=== PATIENT | female | born 1960 | race Caucasian/White ===

== ENCOUNTER 2023-09-14 16:39 | Emergency (ER) | payer OTHER, SELFPAY ==
[2023-09-14 18:51] VITALS: BP 160/94
--- NOTE | 2023-09-14 20:04 | ED.MUSCINJ ---
HPI-Injury
General
Source: patient
Exam Limitations: none
Time Seen by Provider: 09/14/23 16:51
Nursing documentation reviewed up to this point in time: agreed with
History of Present Illness-Injury
Is this injury a work related problem?: Yes
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
Initial Injury comments:
Patient states she lsot her footing and fell. Denies hitting her head. No LOC. Complains of pain to let lat foot, right shoulder. She was then accidentally hit by cart on lower back. Mild discomfort at site. Injuries occurred just [employer]
Past History
Past History
ED Past Medical History: HTN and Hypercholesterolemia
ED Past Surgical History: None
Social History
Tobacco: Non-smoker
Personal: Single
Living: with family
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
Review of Systems
Review of Systems
Allergies reviewed?: Yes
All Other Systems: ROS reviewed and negative except as documented in HPI and ROS
Constitutional: Reports no symptoms
EENT: Reports no symptoms
Respiratory: Reports no symptoms
Cardiac: Reports no symptoms
ABD/GI: Reports no symptoms
: Reports no symptoms
Musculoskeletal: Reports joint pain (Pain let lat foot, right shoulder, low back.)
Skin: Reports no symptoms
Neurological: Reports no symptoms
Psychiatric: Reports no symptoms
Musculoskeletal Injury Exam
Musculoskeletal Injury Exam
Left Lateral Foot:
Pain with Movement?: Moderate
Tender to palpation?: Moderate
Soft tissue swelling?: None
External deformity and angulation?: None
Joint effusion?: None
Contusion?: None
Hematoma-local bleeding into tissue?: None
Strain- Sprain- Tear (Connective tissue injury)?: Moderate
Crepitus with movement?: No
Joint instability?: No
Malalignment/deformity?: No
Range of motion: Full
Distal skin color and temperature: normal-warm & good color
Capillary Refill: normal
Normal distal neurovascular exam?: Yes
Peripheral Pulses: posterior tibial (left): 3+ and dorsalis pedis (left): 3+
Proximal tibia Left:
Pain with Movement?: Mild
Tender to palpation?: Moderate
Soft tissue swelling?: None
External deformity and angulation?: None
Joint effusion?: None
Contusion?: Mild
Hematoma-local bleeding into tissue?: None
Strain- Sprain- Tear (Connective tissue injury)?: Moderate
Crepitus with movement?: No
Joint instability?: No
Malalignment/deformity?: No
Range of motion: Full
Distal skin color and temperature: normal-warm & good color
Capillary Refill: normal
Normal distal neurovascular exam?: Yes
Lower Back:
Pain with Movement?: Mild
Tender to palpation?: Mild
Soft tissue swelling?: None
External deformity and angulation?: None
Joint effusion?: None
Contusion?: Mild
Hematoma-local bleeding into tissue?: None
Strain- Sprain- Tear (Connective tissue injury)?: None
Crepitus with movement?: No
Joint instability?: No
Malalignment/deformity?: No
Range of motion: Full
Distal skin color and temperature: normal-warm & good color
Capillary Refill: normal
Normal distal neurovascular exam?: Yes
Right Shoulder:
Pain with Movement?: Mild
Tender to palpation?: Mild
Soft tissue swelling?: None
External deformity and angulation?: None
Joint effusion?: None
Contusion?: Moderate
Hematoma-local bleeding into tissue?: None
Strain- Sprain- Tear (Connective tissue injury)?: None
Crepitus with movement?: No
Joint instability?: No
Malalignment/deformity?: No
Range of motion: Full
Distal skin color and temperature: normal-warm & good color
Capillary Refill: normal
Normal distal neurovascular exam?: Yes
Phy Exam
General Physical Exam
General Presentation: well appearing and no apparent distress
General age: appears stated age
General Skin: warm and dry
General Habitus: normal
General Mental: alert
Musculoskeletal Exam
Musculoskeletal Exam: full ROM, neuro vasc intact and other (Achilles intact, no tenderness base of 5th)
Skin Exam
Skin Exam: normal color, warm/dry and no rash
Psychiatric Exam
Psychiatric Exam: normal mood/affect
Injury Course
Orders/Labs/Results
Orders:
Orders
09/14/23 17:06
Foot, Left 3 View [CR Foot - Left Min 3 Views] Urgent
Comment:
Reason For Exam: fall
Tib/Fib, Left 2 View [CR Leg Tibia/fibula Left 2 Vw] Urgent
Comment:
Reason For Exam: fall
09/14/23 18:36
Ortho Boot Left- Treatment ONCE
Short or tall?: Short
*Radiology
Radiology exam reviewed: radiology read reviewed
*Pulse Oximetry
Patient hypoxic: no
*Critical Care Note
Total Time (30-74mins, 75-104mins- exclusive of procedures): Not Applicable
ED Attending Note
-
Portions of this chart may have been created with voice recognition software.� Occasional wrong word or��sound alike� substitutions may have occurred due to the inherent limitations of voice recognition software.
Discharge Plan
Departure
Patient Disposition: Home (Routine Discharge)
Date of Disposition: 09/14/23
Time of Disposition: 18:37
Patient with high blood pressure during this ER visit?: No
Condition: Good
Covid-19: Not Applicable
Discharge Problem:
Foot sprain, Back contusion
Instructions: Ibuprofen, Foot Sprain (DC), Using Cold for Pain, Contusion
Prescriptions:
No Action
atorvastatin 10 MG tablet
10 mg PO DAILY
atenolol 50 MG tablet
50 mg PO BID
sumatriptan succinate 50 MG tablet
50 mg PO DAILY PRN (Reason: migraine)
naproxen 375 MG tablet
375 mg PO TID 0RF
hydrochlorothiazide 25 MG tablet
25 mg PO DAILY
Hold Instructions: will reassess as outpt
omeprazole 20 MG tablet,delayed release (DR/EC)
20 mg PO DAILY
acetaminophen 325 MG tablet
650 mg PO Q6HPRN PRN (Reason: mild pain/ fever>100.5F) 0RF
lorazepam 0.5 mg Tablet
0.5 mg PO BID PRN (Reason: anxiety )
cyclobenzaprine 5 mg Tablet
5 mg PO HS PRN (Reason: jaw tightness)
polyethylene glycol 3350 17 gram Powder In Packet
17 g PO DAILYPRN PRN (Reason: Constipation) Qty: 0 0RF
losartan 50 MG tablet
50 mg PO BID Qty: 1 0RF
Rx Instructions:
start tomorrow
Referrals:
[facility] [Outside] - Tomorrow
Lebron Mcgill DO [Family Provider] -
Interventions
Interventions:
*General Assessment Last Done: 09/14/23 18:51
ED- Fall Risk Assessment Last Done: 09/14/23 18:51
*Nursing Disposition Last Done: 09/14/23 18:51
Discharge Date and Time
Discharge Date/Time: 09/14/23 18:53
== END 2023-09-14 18:53 | disposition home or self-care (01) ==
LOC: EMR 16:39
PROVIDERS: EMERGENCY PHYSICIAN Emergency Medicine; FAMILY PHYSICIAN Family Medicine
DX: S20.229A Contusion of unspecified back wall of thorax, initial encounter (principal); S93.602A Unspecified sprain of left foot, initial encounter; W19.XXXA Unspecified fall, initial encounter
CPT/HCPCS: 99283; 73590; 73630

== ENCOUNTER 2024-03-19 00:21 | Emergency (ER) | payer MEDICARE, SELFPAY ==
[2024-03-19 00:32] VITALS: BP 170/81
--- NOTE | 2024-03-19 01:26 | ED.GENMED ---
History of Present Illness
General
Chief Complaint: Skin Problem
Source: patient
Time Seen by Provider: 03/19/24 00:52
History of Present Illness
History of Present Illness:
63-year-old female who suffered a sunburn to her upper body about 3 weeks ago. She developed 'bubbly blisters' which resolved and then her skin peeled. Shortly after, she noted severe itching of the area where the burn as which includes her chest
shoulders and upper back on the right side. She has tried Benadryl, and was prescribed Silvadene by her family doctor. She also used hydrocortisone spray, however symptoms are so persistent that it prompted her visit here specifically for the
itching. She denies throat tightness, lip swelling, dyspnea, chest pain, headache, or other complaints. Patient sees a skin doctor regularly and has an appointment in April.
Past History
Past History
ED Past Medical History: HTN, Hypercholesterolemia and Other
ED Past Surgical History: Orthopedic
Social History
Tobacco: Non-smoker
Alcohol: None
Drug: None
Personal: Single
Living: with family
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
Phy Exam
Physical Exam
Physical Exam:
GENERAL: Alert , in no apparent distress
EYE: pupils equal and reactive
NECK: Supple, no significant adenopathy.
ENT: o/p clr, mmm.
CARDIAC: Regular rate and rhythm .
LUNGS: Clear breath sounds bilaterally, no acute respiratory distress, no wheezes/rales/rhonchi
ABDOMEN: Soft, without focal tenderness, no r/g
NEUROLOGICAL: Alert and oriented, no focal neuro deficits
SKIN: Warm and dry, skin intact. There is a resolving sunburn noted across the upper chest and shoulders bilaterally, no open wounds, vesicles, ulcers, drainage, crepitus, fluctuance, or other abnormalities. Skin is generally very dry.
MUSCULOSKELETAL: No edema, well perfused.
PSYCH: Normal and appropriate interaction.
Course
Orders/Labs/Results
Orders:
Orders
03/19/24 01:26
Prednisone [Deltasone] 50 mg PO NOW STA
Vital Signs
Initial and Last Documented VS:
Initial Vital Signs
Temp Pulse Resp BP Pulse Ox
99 F 77 20 170/81 97
03/19/24 00:32 03/19/24 00:32 03/19/24 00:32 03/19/24 00:32 03/19/24 00:32
Last Documented Vital Signs
Temp Pulse Resp BP Pulse Ox
99 F 77 20 170/81 97
03/19/24 00:32 03/19/24 00:32 03/19/24 00:32 03/19/24 00:32 03/19/24 00:32
*Critical Care Note
Total Time (30-74mins, 75-104mins- exclusive of procedures): Not Applicable
Update Note
Update Note:
Patient presents to the Emergency Department with itching
Number and Complexity of Problems Addressed at the Encounter
� Chronic conditions affecting care:
� Acute Exacerbation and/or Progression of Chronic Illness:
� Differential Diagnosis includes: But not limited to post sunburn reaction, allergic reaction, etc.
Amount and/or Complexity of Data to be Reviewed and Analyzed
� I performed an independent evaluation of and my interpretation is:
EKG:
CT:
Xrays:
Laboratory Studies:
Other:
� Review of other/old records reveals:
� Clinical information was obtained by an independent historian:
� Prescriptions/Medications Considered but not given:
� Further testing considered but not performed:
Risk of Complications and/or Morbidity or Mortality of Patient Management
� Social determinants of health affecting care:
� Discussion with other providers (PCP, Hospitalists, Consultants, etc):
� Escalation of care including admission/observation vs risk of discharge considered: Long discussion with patient, encouraged Claritin every morning, prompt Derm follow-up, and I will prescribe oral steroids as well as Atarax
for her symptoms.
ED Attending Note
-
Portions of this chart may have been created with voice recognition software.� Occasional wrong word or��sound alike� substitutions may have occurred due to the inherent limitations of voice recognition software.
Discharge Plan
Departure
Patient Disposition: Home (Routine Discharge)
Date of Disposition: 03/19/24
Time of Disposition: 01:29
Patient with high blood pressure during this ER visit?: Yes
Condition: Good
Discharge Problem:
pruritis
Instructions: Itchy skin, BLOOD PRESSURE
Prescriptions:
New
prednisone 10 mg tablet
10 mg PO DIRECTED Qty: 31 0RF
Rx Instructions:
50 mg qdX2d, then 40mg qdX3d, then 20 mg qdX3d, then 10 mg qdX3d then d/c
hydroxyzine HCl 25 mg tablet
25 mg PO Q8H PRN (Reason: itching) Qty: 16 0RF
No Action
atorvastatin 10 MG tablet
10 mg PO DAILY
atenolol 50 MG tablet
50 mg PO BID
sumatriptan succinate 50 MG tablet
50 mg PO DAILY PRN (Reason: migraine)
naproxen 375 MG tablet
375 mg PO TID 0RF
hydrochlorothiazide 25 MG tablet
25 mg PO DAILY
omeprazole 20 MG tablet,delayed release (DR/EC)
20 mg PO DAILY
acetaminophen 325 MG tablet
650 mg PO Q6HPRN PRN (Reason: mild pain/ fever>100.5F) 0RF
lorazepam 0.5 mg Tablet
0.5 mg PO BID PRN (Reason: anxiety )
cyclobenzaprine 5 mg Tablet
5 mg PO HS PRN (Reason: jaw tightness)
polyethylene glycol 3350 17 gram Powder In Packet
17 g PO DAILYPRN PRN (Reason: Constipation) Qty: 0 0RF
losartan 50 MG tablet
50 mg PO BID Qty: 1 0RF
Rx Instructions:
start tomorrow
Referrals:
Nabila Luz PA [Non-Admitting Privileges] - Follow up in 2-3 days
Lebron Mcgill DO [Family Provider] -
Activity Restrictions/Additional Instructions:
IF YOU DEVELOP FEVER, DRAINAGE, INCREASING OR NEW ITCHING, THROAT TIGHTNESS, TONGUE SWELLING, CHEST PAIN, SHORTNESS OF BREATH, GET WORSE, DO NOT GET BETTER, OR OTHER WORRISOME SIGNS, PLEASE RETURN TO THE ER IMMEDIATELY.
Interventions
Interventions:
*Risk Screen - Suicide Last Done: 03/19/24 00:32
*General Assessment Last Done: 03/19/24 00:32
*Neglect/Abuse Screening Last Done: 03/19/24 00:32
ED- Fall Risk Assessment Last Done: 03/19/24 00:32
*ED COVID-19 Vaccine History Last Done: 03/19/24 00:32
Discharge Date and Time
Print Language: TAIWANESE
[2024-03-19] MEDS: DELTASONE 50 MG PO (01:48)
[2024-03-19 01:49] VITALS: BP 172/93
== END 2024-03-19 02:00 | disposition home or self-care (01) ==
LOC: EMR 00:21
PROVIDERS: EMERGENCY PHYSICIAN Emergency Medicine; FAMILY PHYSICIAN Family Medicine
DX: L29.9 Pruritus, unspecified (principal); I10 Essential (primary) hypertension; E78.00 Pure hypercholesterolemia, unspecified
CPT/HCPCS: 99282

== ENCOUNTER 2024-06-19 19:17 | Emergency (ER) | payer MEDICARE, SELFPAY ==
[2024-06-19 19:19] VITALS: BP 161/95
[2024-06-19 19:32] VITALS: BP 151/86
[2024-06-19 19:33] VITALS: BMI 29.7
--- NOTE | 2024-06-19 19:34 | EDRN ---
In February, pt started with dizziness any time she turned her head to the left. Pt says it stopped then was intermittent. Pt was laying on sofa today got up and bent over to turn off a small heater and she fell backwards hitting entertainment center.
Pt says she was dizzy which caused her to fall backwards. Pt crawled to sofa to get up. Pt laid there for 1 hour, pt tried to get up and held onto things to go to the bathroom. When pt got up from toilet, she lost her balance and fell back onto
the toilet. Pt held onto berry to get to the sofa. Pt went into kitchen later but fell again stating 'I grabbed myself before I hard landed.' Pt then called her son who came over. Pt slid down the stairs to open the door for him then crawled
back upstairs. Son then brought pt to ED. Pt has had a headache all week and says her bp was 176/110 earlier this week. Headache is starting to return now. No double vision, visual disturbance. Pt adds she has been forgetting things this past
week, walking into a room and forgetting why she did so. All day, pt has felt dizzy when she stands. Pt feels fine when she is supine but gets dizzy when she turns her head to the left. Dizziness stops when she straightens her head. Pt has had 'a
little' RUQ abd pain that is intermittent but is now more often there than not. Pt adds she thinks she takes too much aleve and that is causing the abd pain. Pt denies cp, sob, n/v, weakness.
[2024-06-19 20:00] VITALS: BP 124/69
--- NOTE | 2024-06-19 20:02 | ED.GENMED ---
History of Present Illness
General
Chief Complaint: Dizziness
Source: patient
Time Seen by Provider: 06/19/24 19:43
History of Present Illness
History of Present Illness:
This patient is a 63-year-old female who states that she was feeling perfectly well yesterday. When she woke up this morning, she noticed that when she turns her head to the side, particular to the left side, the whole room 'is spinning'. She has
had these episodes throughout the day today when she moves her head or stands up. The sense of spinning/vertigo is not constant, and specifically position related. She denies associated diplopia or change in vision, change in speech, change in
swallowing, vomiting, numbness, tingling, chest pain, dyspnea, neck pain. She does note slight nausea. She has a very mild headache that started on the way here. Patient states that these episodes of dizziness today have caused her to fall down
because she lost her balance. She denies hitting her head or loss of consciousness. Patient describes having similar episodes in February and was diagnosed with vertigo.
Past History
Past History
ED Past Medical History: HTN and Hypercholesterolemia
ED Past Surgical History: Orthopedic
Social History
Tobacco: Non-smoker
Alcohol: None
Drug: None
Personal: Single
Living: with family
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
Phy Exam
Physical Exam
Physical Exam:
GENERAL: Alert , in no apparent distress
EYE: pupils equal and reactive, no nystagmus, EOMI, no photophobia
NECK: Supple, no significant adenopathy.
ENT: o/p clr, mmm.
CARDIAC: Regular rate and rhythm .
LUNGS: Clear breath sounds bilaterally, no acute respiratory distress, no wheezes/rales/rhonchi
ABDOMEN: Soft, without focal tenderness, no r/g, no cvat
NEUROLOGICAL: Alert and oriented, no focal neuro deficits, [id number] normal, motor 5 out of 5, sensory intact, cranial nerves II through XII intact
SKIN: Warm and dry, skin intact.
MUSCULOSKELETAL: No edema, well perfused.
PSYCH: Normal and appropriate interaction.
Course
Orders/Labs/Results
Orders:
Orders
06/19/24 19:22
Electrocardiogram (*1) Urgent
Reason for Study: Vertigo / Dizzy
EKG- Treatment ONCE
06/19/24 20:01
CT Head W/o Iv Contrast Urgent
Comment:
Reason For Exam: DIZZY
Cardiac Monitoring- Treatment ONCE
Meclizine [Antivert] 25 mg PO NOW STA
06/19/24 20:26
Complete Blood Count/No Diff Urgent
Comprehensive Metabolic Panel Urgent
Abnormal Lab Results
06/19/24
20:26
Creatinine 1.2 H mg/dL
(0.6-1.0)
Glucose 111 H mg/dl
(70-99)
Alkaline Phosphatase 155 H U/L
(38-126)
06/19/24 20:26
06/19/24 20:26
Vital Signs
Initial and Last Documented VS:
Initial Vital Signs
Temp Pulse Resp BP Pulse Ox
98.3 F 84 18 161/95 97
06/19/24 19:19 06/19/24 19:19 06/19/24 19:19 06/19/24 19:19 06/19/24 19:19
Last Documented Vital Signs
Temp Pulse Resp BP Pulse Ox
98.3 F 73 15 136/84 99
06/19/24 19:19 06/19/24 21:00 06/19/24 21:00 06/19/24 21:00 06/19/24 19:33
*Critical Care Note
Total Time (30-74mins, 75-104mins- exclusive of procedures): Not Applicable
Update Note
Update Note:
Patient presents to the Emergency Department with ___dizziness
Number and Complexity of Problems Addressed at the Encounter
� Chronic conditions affecting care:
� Acute Exacerbation and/or Progression of Chronic Illness:
� Differential Diagnosis includes: Peripheral vertigo, central vertigo, vagal dizziness
Amount and/or Complexity of Data to be Reviewed and Analyzed
� I performed an independent evaluation of and my interpretation is:
EKG:read by me, nsr, lvh, no acute ischemia
CT:head ct read by bossman damon
Xrays:
Laboratory Studies:sl abnl cr but baseline (pt made aware), otherwise generally unremkarable
Other:
� Review of other/old records reveals:
� Clinical information was obtained by an independent historian:
� Prescriptions/Medications Considered but not given:
� Further testing considered but not performed:
Risk of Complications and/or Morbidity or Mortality of Patient Management
� Social determinants of health affecting care:
� Discussion with other providers (PCP, Hospitalists, Consultants, etc):925pm Pt feels much better s/p meds here. no new sxs, no 'red flags' to suggest central process. Sxs clearly reproduced with turning head, no nysagmus
noted. D/w pt import of f/u including re:Cr, reasons to rted, and f/u with vestib therapy. Pt walked to br with ease.
� Escalation of care including admission/observation vs risk of discharge considered:
ED Attending Note
-
Portions of this chart may have been created with voice recognition software.� Occasional wrong word or��sound alike� substitutions may have occurred due to the inherent limitations of voice recognition software.
Discharge Plan
Departure
Patient Disposition: Home (Routine Discharge)
Date of Disposition: 06/19/24
Time of Disposition: 21:26
Patient with high blood pressure during this ER visit?: Yes
Condition: Good
Discharge Problem:
Vertigo
Instructions: Vertigo (a Type of Dizziness) (DC), BLOOD PRESSURE
Prescriptions:
New
meclizine [Antivert] 25 mg tablet,chewable
25 mg PO Q8HPRN PRN (Reason: nausea or vertigo) Qty: 13 0RF
No Action
atenolol 50 MG tablet
50 mg PO BID
sumatriptan succinate 50 MG tablet
50 mg PO DAILY PRN (Reason: migraine)
omeprazole 20 MG tablet,delayed release (DR/EC)
20 mg PO DAILY
lorazepam 0.5 mg Tablet
0.5 mg PO BID PRN (Reason: anxiety )
polyethylene glycol 3350 17 gram Powder In Packet
17 g PO DAILYPRN PRN (Reason: Constipation) Qty: 0 0RF
losartan 50 MG tablet
50 mg PO BID Qty: 1 0RF
atorvastatin 20 mg Tablet
20 mg PO DAILY
amlodipine 2.5 mg Tablet
2.5 mg PO DAILY
hydrochlorothiazide 12.5 mg Tablet
12.5 mg PO DAILY
naproxen sodium [Aleve] 220 mg Capsule
440 mg PO BID
Referrals:
Lebron Mcgill DO [Family Provider] - Follow up in 2-3 days
Activity Restrictions/Additional Instructions:
PLEASE SEE YOUR FAMILY DOCTOR IN CLOSE FOLLOW UP. IF YOU DEVELOP DOUBLE VISION, FEVER, SEVERE HEADACHE, CHANGE IN SPEECH, DIFFICULTY WALKING, WORSENING/PERSISTENT DIZZINESS, WEAKNESS IN AN EXTREMITY, OR OTHER WORRISOME SIGNS, GO TO THE ER
IMMEDIATELy!
Interventions
Interventions:
*Risk Screen - Suicide Last Done: 06/19/24 19:19
*General Assessment Last Done: 06/19/24 19:19
*Neglect/Abuse Screening Last Done: 06/19/24 19:19
*ED COVID-19 Vaccine History Last Done: 06/19/24 19:33
*Nursing Disposition Last Done: 06/19/24 21:33
ED- Neurological Assessment Last Done: 06/19/24 19:43
ED- Cardiac Assessment Last Done: 06/19/24 19:50
ED Swallowing Screen Last Done: 06/19/24 20:15
Discharge Date and Time
Discharge Date/Time: 06/19/24 21:33
Print Language: [id number]
[2024-06-19] MEDS: ANTIVERT 25 MG PO (20:16)
[2024-06-19 20:35] LABS: Hematocrit 37.5 % (37.0-47.0); Hemoglobin 13.1 g/dL (12.0-16.0); Mean Corp Hgb Conc. 34.9 g/dL (33.0-37.0); Mean Corpuscular Hgb 29.4 pg (27.0-31.0); Mean Corpuscular Volume 84.3 fL (81.0-99.0); Mean Platelet Volume 9.9 fL (7.4-10.4); Platelet Count 383 10^3/uL (130-400); Red Blood Cell Count 4.45 10^6/uL (4.20-5.40); Red Cell Dist. Width 13.2 % (11.5-14.5); White Blood Cell Count 7.4 10^3/uL (4.8-10.8)
[2024-06-19 20:58] LABS: ALT (SGPT) 20 U/L (0-35); AST (SGOT) 26 U/L (14-36); Albumin 4.2 g/dl (3.5-5.0); Alkaline Phosphatase 155 U/L (38-126); Blood Urea Nitrogen 15 mg/dl (7-17); Carbon Dioxide 28 mmol/L (22-30); Chloride 100 mmol/L (98-107); Estimated Creatinine Clearance 49 ml/min; Glucose 111 mg/dl (70-99); Potassium 3.7 mmol/L (3.5-5.1); Sodium 139 mmol/L (135-145); Total Bilirubin 0.7 mg/dl (0.2-1.3); Total Protein 7.4 g/dl (6.3-8.2); eGFR 50.23
[2024-06-19 21:00] VITALS: BP 136/84
== END 2024-06-19 21:33 | disposition home or self-care (01) ==
LOC: EMR 19:17
PROVIDERS: EMERGENCY PHYSICIAN Emergency Medicine; FAMILY PHYSICIAN Family Medicine
DX: R42 Dizziness and giddiness (principal); R11.0 Nausea; R51.9 Headache, unspecified; R10.11 Right upper quadrant pain; W19.XXXA Unspecified fall, initial encounter; I10 Essential (primary) hypertension; E78.00 Pure hypercholesterolemia, unspecified; R29.6 Repeated falls
CPT/HCPCS: 99284; 70450; 80053; 85027; 93005

== ENCOUNTER 2024-06-24 19:45 | Emergency (ER) | payer MEDICARE, SELFPAY ==
[2024-06-24 19:49] VITALS: BP 160/94
[2024-06-24] MEDS: TORADOL 30 MG IV (20:27)
[2024-06-24 20:35] LABS: % Basophils 0.4 % (0-2); % Eosinophils 1.9 % (0-6); % Immature Granulocytes 0.3 % (0-0.5); % Lymphocytes 26.2 % (20.5-51.1); % Monocytes 6.1 % (1.7-9.3); % Neutrophils 65.1 % (42.2-75.2); Absolute Eosinophils 0.2 10^3/uL (0-0.7); Absolute Lymphocytes 2.6 10^3/uL (1.2-3.4); Absolute Monocytes 0.6 10^3/uL (0.1-0.6); Absolute Neutrophils 6.6 10^3/uL (1.4-6.5); Hematocrit 38.3 % (37.0-47.0); Hemoglobin 13.3 g/dL (12.0-16.0); Mean Corp Hgb Conc. 34.7 g/dL (33.0-37.0); Mean Corpuscular Hgb 29.8 pg (27.0-31.0); Mean Corpuscular Volume 85.9 fL (81.0-99.0); Nucleated Red Blood Cells % 0 %; Platelet Count 413 10^3/uL (130-400); Red Blood Cell Count 4.46 10^6/uL (4.20-5.40); White Blood Cell Count 10.1 10^3/uL (4.8-10.8)
--- NOTE | 2024-06-24 20:35 | ED.GENMED ---
Addendum entered and electronically signed by Ignacio Pritchett DO 06/24/24 23:08:
Update patient is better x-rays noted, formal report pending, symptoms only when she moves her head, unable to get ultrasound tonight she will follow-up with her PCP for that, also she already has number for physical therapy for vestibular therapy,
Original Note:
History of Present Illness
General
Chief Complaint: Fainting/Passed Out
Source: patient, records and previous radiology exam
Exam Limitations: none
Time Seen by Provider: 06/24/24 19:57
History of Present Illness
History of Present Illness:
63-year-old female history of vertigo diagnosed for 5 months ago, it has been intermittent worse with movements, better with rest, few episodes where she nearly passed out, recently fell onto a TV knocked it down seen in the ER had a CAT scan of her
head which is unremarkable, tonight she was in the shower felt off next thing he knows she was on the ground, shampooing her hair struck her jaw, she has pain in her left elbow left hip left knee and ankle, no chest pain or shortness of breath, she
has had surgery on her hand previously told that she has an inflammatory process not fibromyalgia, she lives alone does not drink or smoke, interested she told me her mother had similar episodes around this age had carotid blockage requiring surgery
Seen here few nights ago diagnosed with vertigo had a CAT scan of her head discharged on meclizine scheduled to see her PCP in a few days
Past History
Past History
ED Past Medical History: HTN and Hypercholesterolemia
ED Past Surgical History: Orthopedic
Social History
Tobacco: Non-smoker
Alcohol: None
Drug: None
Personal: Single
Living: with family
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
Family History
Family History: Other (Mother with syncope in her 60s)
Review of Systems
Review of Systems
All Other Systems: Not applicable
Constitutional: Denies fever or fatigue
EENT: Reports no symptoms
Respiratory: Reports no symptoms
Cardiac: Reports syncope; Denies chest pain
ABD/GI: Reports no symptoms
: Reports no symptoms
Musculoskeletal: Reports joint pain; Denies back pain
Neurological: Reports dizzy and numbness
Hematologic/Lymphatic: Reports no symptoms
Psychiatric: Reports no symptoms
Phy Exam
Physical Exam
Physical Exam:
Physical Exam
General: no apparent distress, not acutely ill
Neck: No posterior neck pain, mild tenderness to the angle of the mandible on the left, no tongue bite question bruit on the left carotid
Heart: s1/s2 regular rate and rhythm, no murmur. equal radial pulses.
Lungs: no acute respiratory distress. clear bilaterally
Abdomen: Soft not tender
Neuro: alert and oriented. no focal neurological deficits
Skin: no rash
Psychiatric: well kept. interactive and cooperative
Extremities: No pain with range of motion of the hips, minimal tenderness of the left knee and left ankle
Course
Orders/Labs/Results
Orders:
Orders
06/24/24 20:13
Electrocardiogram (*1) Urgent
Reason for Study: Other
Other Reason for Exam: trauma
Cardiac Monitoring- Treatment ONCE
EKG- Treatment ONCE
CR Cervical Spine 2 or 3 Vw Urgent
Comment:
Reason For Exam: fall
CR Jaw/mandible < 4 Views Urgent
Comment:
Reason For Exam: fall
06/24/24 20:14
CR Elbow - Left Min 2 View Urgent
Comment:
Reason For Exam: fall
Knee, Right 1 or 2 Views [CR Knee - Right 1 Or 2 Views] Urgent
Comment:
Reason For Exam: fall
Pelvis, 1 or 2 Views CR [CR Pelvis - 1 Or 2 Views ] Urgent
Comment:
Reason For Exam: fall
06/24/24 20:15
Ankle, left 2 view CR [CR Ankle - Left 2 Views] Urgent
Comment:
Reason For Exam: fall
Carotid US [US Cerebrovascular] Urgent
Comment:
Reason For Exam: dizzy fall ? bruit
06/24/24 20:25
Complete Blood Count/With Diff Urgent
Comprehensive Metabolic Panel Urgent
Ketorolac [Toradol] 30 mg IV NOW STA
Abnormal Lab Results
06/24/24
20:25
Plt Count 413 H 10^3/uL
(130-400)
Absolute Neuts (auto) 6.6 H 10^3/uL
(1.4-6.5)
06/24/24 20:25
Vital Signs
Initial and Last Documented VS:
Initial Vital Signs
Temp Pulse Resp BP Pulse Ox
98.1 F 85 16 160/94 98
06/24/24 19:49 06/24/24 19:49 06/24/24 19:49 06/24/24 19:49 06/24/24 19:49
Last Documented Vital Signs
Temp Pulse Resp BP Pulse Ox
98.1 F 85 16 160/94 98
06/24/24 19:49 06/24/24 19:49 06/24/24 19:49 06/24/24 19:49 06/24/24 19:49
MDM/Problems Addressed
Differential Diagnosis Includes:
Vasovagal arrhythmia electrolyte abnormality nonspecific dizziness,
MDM/Problems Addressed:
Syncope dizziness vertigo
*Radiology
Radiology exam reviewed: radiology read reviewed
*Pulse Oximetry
Patient hypoxic: no
*EKG
Interpreted by ED Provider?: Yes
Interpretation: normal
Comparison EKG: no comparison EKG present
Heart Rate: 78
Rate: normal
Rhythm: sinus
Ischemia: no ischemia
*Kitchen Manager Interpretation
Rate: normal
Interpretation: normal
Heart Rate: 78
Rhythm: sinus
*Critical Care Note
Total Time (30-74mins, 75-104mins- exclusive of procedures): Not Applicable
ED Attending Note
-
Portions of this chart may have been created with voice recognition software.� Occasional wrong word or��sound alike� substitutions may have occurred due to the inherent limitations of voice recognition software.
Discharge Plan
Departure
Prescriptions:
No Action
atenolol 50 MG tablet
50 mg PO BID
sumatriptan succinate 50 MG tablet
50 mg PO DAILY PRN (Reason: migraine)
omeprazole 20 MG tablet,delayed release (DR/EC)
20 mg PO DAILY
lorazepam 0.5 mg Tablet
0.5 mg PO BID PRN (Reason: anxiety )
polyethylene glycol 3350 17 gram Powder In Packet
17 g PO DAILYPRN PRN (Reason: Constipation) Qty: 0 0RF
losartan 50 MG tablet
50 mg PO BID Qty: 1 0RF
atorvastatin 20 mg Tablet
20 mg PO DAILY
amlodipine 2.5 mg Tablet
2.5 mg PO DAILY
hydrochlorothiazide 12.5 mg Tablet
12.5 mg PO DAILY
naproxen sodium [Aleve] 220 mg Capsule
440 mg PO BID
meclizine [Antivert] 25 mg tablet,chewable
25 mg PO Q8HPRN PRN (Reason: nausea or vertigo) Qty: 13 0RF
Referrals:
Lebron Mcgill DO [Family Provider] -
Interventions
Interventions:
*Risk Screen - Suicide Last Done: 06/24/24 19:47
*Neglect/Abuse Screening Last Done: 06/24/24 19:49
Discharge Date and Time
Print Language: SLOVAK
[2024-06-24 20:50] LABS: ALT (SGPT) 16 U/L (0-35); AST (SGOT) 22 U/L (14-36); Albumin 4.1 g/dl (3.5-5.0); Alkaline Phosphatase 145 U/L (38-126); Blood Urea Nitrogen 13 mg/dl (7-17); Calcium 10.3 mg/dl (8.4-10.2); Carbon Dioxide 29 mmol/L (22-30); Chloride 98 mmol/L (98-107); Glucose 102 mg/dl (70-99); Potassium 3.5 mmol/L (3.5-5.1); Sodium 140 mmol/L (135-145); Total Bilirubin 0.4 mg/dl (0.2-1.3); Total Protein 6.9 g/dl (6.3-8.2); eGFR 41.75
[2024-06-24 22:13] VITALS: BP 148/82
--- NOTE | 2024-06-24 23:05 | ED.GENMED ---
History of Present Illness
General
Chief Complaint: Fainting/Passed Out
Time Seen by Provider: 06/24/24 19:57
Past History
Past History
ED Past Medical History: HTN and Hypercholesterolemia
ED Past Surgical History: Orthopedic
Social History
Tobacco: Non-smoker
Alcohol: None
Drug: None
Personal: Single
Living: with family
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
Family History
Family History: Other (Mother with syncope in her 60s)
Course
Orders/Labs/Results
Orders:
Orders
06/24/24 20:13
Electrocardiogram (*1) Urgent
Reason for Study: Other
Other Reason for Exam: trauma
Cardiac Monitoring- Treatment ONCE
EKG- Treatment ONCE
CR Cervical Spine 2 or 3 Vw Urgent
Comment:
Reason For Exam: fall
CR Jaw/mandible < 4 Views Urgent
Comment:
Reason For Exam: fall
06/24/24 20:14
CR Elbow - Left Min 2 View Urgent
Comment:
Reason For Exam: fall
CR Knee - Left 4 Or More View* Urgent
Reason For Exam: fall
Pelvis, 1 or 2 Views CR [CR Pelvis - 1 Or 2 Views ] Urgent
Comment:
Reason For Exam: fall
06/24/24 20:15
Ankle, left 2 view CR [CR Ankle - Left 2 Views] Urgent
Comment:
Reason For Exam: fall
06/24/24 20:25
Complete Blood Count/With Diff Urgent
Comprehensive Metabolic Panel Urgent
Ketorolac [Toradol] 30 mg IV NOW STA
Abnormal Lab Results
06/24/24
20:25
Plt Count 413 H 10^3/uL
(130-400)
Absolute Neuts (auto) 6.6 H 10^3/uL
(1.4-6.5)
Creatinine 1.4 H mg/dL
(0.6-1.0)
Glucose 102 H mg/dl
(70-99)
Calcium 10.3 H mg/dl
(8.4-10.2)
Alkaline Phosphatase 145 H U/L
(38-126)
06/24/24 20:25
06/24/24 20:25
Vital Signs
Initial and Last Documented VS:
Initial Vital Signs
Temp Pulse Resp BP Pulse Ox
98.1 F 85 16 160/94 98
06/24/24 19:49 06/24/24 19:49 06/24/24 19:49 06/24/24 19:49 06/24/24 19:49
Last Documented Vital Signs
Temp Pulse Resp BP Pulse Ox
98.1 F 67 10 148/82 99
06/24/24 19:49 06/24/24 22:45 06/24/24 22:45 06/24/24 22:13 06/24/24 22:45
Update Note
Update Note:
Update images noted EKG noted symptoms only when she moves her head, she has made calls to physical therapy for vestibular therapy. Has meclizine, unable to get ultrasound this evening of her carotids and encouraged her to follow-up with her PCP to
discuss this,
ED Attending Note
-
Portions of this chart may have been created with voice recognition software.� Occasional wrong word or��sound alike� substitutions may have occurred due to the inherent limitations of voice recognition software.
Discharge Plan
Departure
Patient Disposition: Home (Routine Discharge)
Date of Disposition: 06/24/24
Time of Disposition: 23:06
Patient with high blood pressure during this ER visit?: No
Condition: Good
Covid-19: Not Applicable
Discharge Problem:
Syncope and collapse
Instructions: Syncope (Fainting) (DC), Vertigo ED, Vestibular Exercises
Prescriptions:
No Action
atenolol 50 MG tablet
50 mg PO BID
sumatriptan succinate 50 MG tablet
50 mg PO DAILY PRN (Reason: migraine)
omeprazole 20 MG tablet,delayed release (DR/EC)
20 mg PO DAILY
lorazepam 0.5 mg Tablet
0.5 mg PO BID PRN (Reason: anxiety )
polyethylene glycol 3350 17 gram Powder In Packet
17 g PO DAILYPRN PRN (Reason: Constipation) Qty: 0 0RF
losartan 50 MG tablet
50 mg PO BID Qty: 1 0RF
atorvastatin 20 mg Tablet
20 mg PO DAILY
amlodipine 2.5 mg Tablet
2.5 mg PO DAILY
hydrochlorothiazide 12.5 mg Tablet
12.5 mg PO DAILY
naproxen sodium [Aleve] 220 mg Capsule
440 mg PO BID
meclizine [Antivert] 25 mg tablet,chewable
25 mg PO Q8HPRN PRN (Reason: nausea or vertigo) Qty: 13 0RF
Referrals:
Lebron Mcgill DO [Family Provider] - Next open appointment
Activity Restrictions/Additional Instructions:
Rest, drink plenty of fluids
Follow-up with your family doctor to discuss an ultrasound of your carotid arteries with him
Follow-up with physical therapy to arrange vestibular therapy
Interventions
Interventions:
*Risk Screen - Suicide Last Done: 06/24/24 19:47
*General Assessment Last Done: 06/24/24 20:34
*Neglect/Abuse Screening Last Done: 06/24/24 19:49
ED- Cardiac Assessment Last Done: 06/24/24 20:34
ED- Neurological Assessment Last Done: 06/24/24 20:34
Discharge Date and Time
Print Language: KINYARWANDA
== END 2024-06-24 23:44 | disposition home or self-care (01) ==
LOC: EMR 19:45
PROVIDERS: EMERGENCY PHYSICIAN Emergency Medicine; FAMILY PHYSICIAN Family Medicine
DX: R55 Syncope and collapse (principal); R42 Dizziness and giddiness; M25.572 Pain in left ankle and joints of left foot; E78.00 Pure hypercholesterolemia, unspecified; I10 Essential (primary) hypertension
CPT/HCPCS: 96374; 99285; 70100; 72040; 72170; 73070; 73564; 73600; 80053; 85025; 93005

== ENCOUNTER → 2024-07-07 14:31 | Outpatient (REF) | payer MEDICARE, SELFPAY | LOC: RAD 14:31 | PROVIDERS: ATTENDING PHYSICIAN Family Medicine | DX: R29.6 Repeated falls (principal); R55 Syncope and collapse | CPT/HCPCS: 93880 ==

== ENCOUNTER 2024-07-08 07:23 | Outpatient (RCR) | payer MEDICARE, SELFPAY | END 2024-07-08 23:59 | disposition home or self-care (01) | LOC: RPT 07:23 | PROVIDERS: ATTENDING PHYSICIAN Family Medicine | DX: H81.12 Benign paroxysmal vertigo, left ear (principal); Z73.6 Limitation of activities due to disability; R26.89 Other abnormalities of gait and mobility | CPT/HCPCS: 97112; 97163 ==

== ENCOUNTER 2024-08-23 22:07 | Inpatient (IN) | payer MEDICARE, SELFPAY ==
[2024-08-23 16:46] VITALS: BP 172/87
--- NOTE | 2024-08-23 16:46 | ED.GENMED ---
ED Provider Triage
<Sergio Nj Jr., PA-C - Last Filed: 08/23/24 16:47>
-
Patient seen by provider in Triage?: Seen in Triage
Attestation: A medical screening examination has been initiated by a qualified medical provider. Based on the assessment performed at this time, it has been determined that an emergent medical condition may exist and the patient has been informed
that further medical evaluation and possible additional diagnostic testing may be needed.
HPI: 64-year-old female presenting with concerns of altered mental status worsening over the past 2 weeks. No specific symptoms but has been more forgetful. Apparently has had outpatient labs that showed significant worsening of renal function.
Plan for labs and head CT for further assessment.
GENERAL: Alert , in no apparent distress
EYE: No visual abnormalities.
NECK: Trachea midline
ENT: No visible abnormalities.
LUNGS: No acute respiratory distress
NEUROLOGICAL: Alert and oriented
SKIN: Skin intact. No visible changes.
MUSCULOSKELETAL: Moving extremities normally
PSYCH: Normal and appropriate interaction.
This is a medical evaluation conducted in person to initiate diagnostic evaluation and provide initial therapeutics. Please see further documentation by the treating clinician.
History of Present Illness
<Sergio Nj Jr., PA-C - Last Filed: 08/23/24 16:47>
General
Chief Complaint: Abnormal Lab Value
Time Seen by Provider: 08/23/24 18:22
<Lebron Abreu MD - Last Filed: 08/24/24 18:42>
General
Source: patient
Exam Limitations: none
History of Present Illness
History of Present Illness:
Patient has had cognitive issues for weeks. She has episodes where she feels mildly confused feels like she is making decisions that are out of her typical for her. During these episodes she has had episodes of hypotension. She had lab work done
by her physician that showed a bump in her creatinine. She was sent to the ER for further evaluation. She does admit to significant nonsteroidal use. She has had no recent medication adjustments. She denies headache visual issues chest pain
shortness of breath abdominal pain.
Past History
<Sergio Nj Jr., PA-C - Last Filed: 08/23/24 16:47>
Past History
ED Past Medical History: HTN and Hypercholesterolemia
ED Past Surgical History: Orthopedic
Social History
Tobacco: Non-smoker
Alcohol: None
Drug: None
Personal: Single
Living: with family
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
Family History
Family History: Other (Mother with syncope in her 60s)
Review of Systems
<Lebron Abreu MD - Last Filed: 08/24/24 18:42>
Review of Systems
All Other Systems: Not applicable
Constitutional: Denies fever or chills
Respiratory: Reports no symptoms
Cardiac: Reports no symptoms
Phy Exam
<Lebron Abreu MD - Last Filed: 08/24/24 18:42>
Physical Exam
Physical Exam:
GENERAL: Alert and oriented in no apparent distress
EYE: Orbits normal.
NECK: Supple, no significant adenopathy.
ENT: Pharynx without erythema
CARDIAC: Regular rate and rhythm without any obvious murmurs.
LUNGS: Clear breath sounds,normal
ABDOMEN: Soft, without focal tenderness or distention
NEUROLOGICAL: Alert and oriented , grossly non-focal
SKIN: Warm and dry, no rash or lesion, no discoloration, skin intact.
MUSCULOSKELETAL: No edema,no deformity.Good color
PSYCH: Normal and appropriate interaction.
Course
<Sergio Nj Jr., PA-C - Last Filed: 08/23/24 16:47>
Orders/Labs/Results
Orders:
Orders
08/23/24 Dinner
Regular
At Your Request: Full Participation
08/23/24 16:46
CT Head W/o Iv Contrast Urgent
Comment:
Reason For Exam: ams
08/23/24 17:04
Complete Blood Count/With Diff Urgent
Comprehensive Metabolic Panel Urgent
Lactic Acid Urgent
TSH Reflex To Free T4 Urgent
Troponin I Urgent
08/23/24 17:35
Urinalysis Reflex To Culture Urgent
Date Specimen was Collected: 08/23/24
Time Specimen was Collected: 17:20
Urine Microscopic Reflex Cult Urgent
Urine Culture Urgent
ALEC Source: U
Specimen Description:
Date Specimen was Collected: 08/23/24
Time Specimen was Collected: 17:20
08/23/24 18:35
US Renal With Bladder Urgent
Comment: bladder not full ok, looking at ureteral jets
Reason For Exam: New onset renal insufficiency
08/23/24 20:25
0.9% Sodium Chloride 500 ml [Nss] 500 ml IV BOLUS
08/23/24 21:27
Admit/Transfer Patient As Directed
Co-Sign Provider:
Level of Care: Inpatient admission
Assign to:: Medical/Surgical
Physician / Group: hospitalist
Diagnosis: acute kidney injury
Reason for Hospitalization: acute kidney injury
Expected length of stay greater than two midnights?: Yes
ELOS- Estimated Length of Stay in days: 2
I certify the patient meets the requirements for IP care: Yes
PRN Pain Medication Management As Directed
May give lesser potent ordered pain med per pt: Yes
preference::
Protocol:: Medication orders for pain may be administered in a
manner that supports deferring to patient preference
when the pt is:
- Requesting an ordered lesser potent pain medication.
Least to most potent pain medications are defined
as: acetaminophen < NSAID < tramadol < opioids
(morphine, oxycodone, hydromorphone).
- Requesting a lesser dose of the same medication IF
ORDERED.
- Requesting a less intrusive route of administration
if both routes are prescribed by the provider (PO <
IV).
08/23/24 21:28
Code Status As Directed
Resuscitation Status: Full Code
08/23/24 22:00
Flush (0.9% Sodium Chloride) [Flush (Nss)] See Dose Instructions IV PER PROTOCOL
08/23/24 22:31
0.9% Sodium Chloride 1000 ml [Nss] 1,000 ml IV 100 mls/hr
Acetaminophen [Tylenol] 650 mg PO Q4HPRN PRN
Lorazepam [Ativan] 0.5 mg PO BIDPRN PRN
Mag Hydrox/Al Hydrox/Simeth [Maalox] 30 ml PO Q6HPRN PRN
Polyethylene Glycol Powder [Miralax] 17 grams PO DAILYPRN PRN
08/23/24 22:31
Urine - Eosinophils [Body Fluid for Eosinophils] Routine
Fluid Source: Urine
Date Specimen was Collected: 08/24/24
Time Specimen was Collected: 10:03
Activity As Directed
Activity Level: With Assistance
Vital Signs As Directed
Frequency: Per unit guidelines
DX Deep Vein Thrombosis Video Routine
08/23/24 22:33
Cyclobenzaprine HCl [Flexeril] 5 mg PO HSPRN PRN
08/24/24 00:00
Heparin 5,000 units SC Q8
08/24/24 06:00
Urine Protein/Creat Ratio (Random) [Protein/Creat Ratio (Random)] IN AM
Date Specimen was Collected: 08/24/24
Time Specimen was Collected: 10:03
08/24/24 06:01
EMMETT, IgG Reflex to HEp-2 [S] IN AM
Basic Metabolic Panel IN AM
Complement C3 IN AM
Complement C4 IN AM
Complete Blood Count/No Diff IN AM
Creatine Phosphokinase IN AM
ESR [Erythrocyte Sed Rate] IN AM
Magnesium IN AM
RPR [Syphilis/T. pallidum Ab Reflex] IN AM
Rheumatoid Factor [Rheumatoid Agglutinin] IN AM
Vitamin B12 IN AM
08/24/24 08:00
Amlodipine [Norvasc] 2.5 mg PO DAILY
Atenolol [Tenormin] 50 mg PO BID
Atorvastatin [Lipitor] 20 mg PO DAILY
Abnormal Lab Results
08/23/24 08/23/24
17:04 17:35
RBC 3.84 L 10^6/uL
(4.20-5.40)
Hgb 11.2 L g/dL
(12.0-16.0)
Hct 33.5 L %
(37.0-47.0)
Plt Count 416 H 10^3/uL
(130-400)
Abs Immat Gran (auto) 0.1 H 10^3/uL
(0-0.05)
Immature Gran % 0.6 H %
(0-0.5)
Potassium 3.3 L mmol/L
(3.5-5.1)
BUN 25 H mg/dl
(7-17)
Creatinine 2.5 H mg/dL
(0.6-1.0)
Glucose 128 H mg/dl
(70-99)
Alkaline Phosphatase 147 H U/L
(38-126)
Urine Bilirubin 1+ A
(Negative)
Leukocyte Esterase Rfl 2+ A
(Negative)
Urine WBC (Reflex) 30-40 A /HPF
(0-5)
Urine Bacteria (Reflex) Few A
(Negative)
08/23/24 17:04
08/23/24 17:04
Vital Signs
Initial and Last Documented VS:
Initial Vital Signs
Temp Pulse Resp BP Pulse Ox
98.2 F 90 16 172/87 98
08/23/24 16:46 08/23/24 16:46 08/23/24 16:46 08/23/24 16:46 08/23/24 16:46
Last Documented Vital Signs
Temp Pulse Resp BP Pulse Ox
98.2 F 73 18 128/78 99
08/24/24 15:30 08/24/24 15:30 08/24/24 15:30 08/24/24 15:30 08/24/24 15:30
<Lebron Abreu MD - Last Filed: 08/24/24 18:42>
Orders/Labs/Results
Orders:
Orders
08/23/24 Dinner
Regular
At Your Request: Full Participation
08/23/24 16:46
CT Head W/o Iv Contrast Urgent
Comment:
Reason For Exam: ams
08/23/24 17:04
Complete Blood Count/With Diff Urgent
Comprehensive Metabolic Panel Urgent
Lactic Acid Urgent
TSH Reflex To Free T4 Urgent
Troponin I Urgent
08/23/24 17:35
Urinalysis Reflex To Culture Urgent
Date Specimen was Collected: 08/23/24
Time Specimen was Collected: 17:20
Urine Microscopic Reflex Cult Urgent
Urine Culture Urgent
ALEC Source: U
Specimen Description:
Date Specimen was Collected: 08/23/24
Time Specimen was Collected: 17:20
08/23/24 18:35
US Renal With Bladder Urgent
Comment: bladder not full ok, looking at ureteral jets
Reason For Exam: New onset renal insufficiency
08/23/24 20:25
0.9% Sodium Chloride 500 ml [Nss] 500 ml IV BOLUS
08/23/24 21:27
Admit/Transfer Patient As Directed
Co-Sign Provider:
Level of Care: Inpatient admission
Assign to:: Medical/Surgical
Physician / Group: hospitalist
Diagnosis: acute kidney injury
Reason for Hospitalization: acute kidney injury
Expected length of stay greater than two midnights?: Yes
ELOS- Estimated Length of Stay in days: 2
I certify the patient meets the requirements for IP care: Yes
PRN Pain Medication Management As Directed
May give lesser potent ordered pain med per pt: Yes
preference::
Protocol:: Medication orders for pain may be administered in a
manner that supports deferring to patient preference
when the pt is:
- Requesting an ordered lesser potent pain medication.
Least to most potent pain medications are defined
as: acetaminophen < NSAID < tramadol < opioids
(morphine, oxycodone, hydromorphone).
- Requesting a lesser dose of the same medication IF
ORDERED.
- Requesting a less intrusive route of administration
if both routes are prescribed by the provider (PO <
IV).
08/23/24 21:28
Code Status As Directed
Resuscitation Status: Full Code
08/23/24 22:00
Flush (0.9% Sodium Chloride) [Flush (Nss)] See Dose Instructions IV PER PROTOCOL
08/23/24 22:31
0.9% Sodium Chloride 1000 ml [Nss] 1,000 ml IV 100 mls/hr
Acetaminophen [Tylenol] 650 mg PO Q4HPRN PRN
Lorazepam [Ativan] 0.5 mg PO BIDPRN PRN
Mag Hydrox/Al Hydrox/Simeth [Maalox] 30 ml PO Q6HPRN PRN
Polyethylene Glycol Powder [Miralax] 17 grams PO DAILYPRN PRN
08/23/24 22:31
Urine - Eosinophils [Body Fluid for Eosinophils] Routine
Fluid Source: Urine
Date Specimen was Collected: 08/24/24
Time Specimen was Collected: 10:03
Activity As Directed
Activity Level: With Assistance
Vital Signs As Directed
Frequency: Per unit guidelines
DX Deep Vein Thrombosis Video Routine
08/23/24 22:33
Cyclobenzaprine HCl [Flexeril] 5 mg PO HSPRN PRN
08/24/24 00:00
Heparin 5,000 units SC Q8
08/24/24 06:00
Urine Protein/Creat Ratio (Random) [Protein/Creat Ratio (Random)] IN AM
Date Specimen was Collected: 08/24/24
Time Specimen was Collected: 10:03
08/24/24 06:01
EMMETT, IgG Reflex to HEp-2 [S] IN AM
Basic Metabolic Panel IN AM
Complement C3 IN AM
Complement C4 IN AM
Complete Blood Count/No Diff IN AM
Creatine Phosphokinase IN AM
ESR [Erythrocyte Sed Rate] IN AM
Magnesium IN AM
RPR [Syphilis/T. pallidum Ab Reflex] IN AM
Rheumatoid Factor [Rheumatoid Agglutinin] IN AM
Vitamin B12 IN AM
08/24/24 08:00
Amlodipine [Norvasc] 2.5 mg PO DAILY
Atenolol [Tenormin] 50 mg PO BID
Atorvastatin [Lipitor] 20 mg PO DAILY
Abnormal Lab Results
08/23/24 08/23/24
17:04 17:35
RBC 3.84 L 10^6/uL
(4.20-5.40)
Hgb 11.2 L g/dL
(12.0-16.0)
Hct 33.5 L %
(37.0-47.0)
Plt Count 416 H 10^3/uL
(130-400)
Abs Immat Gran (auto) 0.1 H 10^3/uL
(0-0.05)
Immature Gran % 0.6 H %
(0-0.5)
Potassium 3.3 L mmol/L
(3.5-5.1)
BUN 25 H mg/dl
(7-17)
Creatinine 2.5 H mg/dL
(0.6-1.0)
Glucose 128 H mg/dl
(70-99)
Alkaline Phosphatase 147 H U/L
(38-126)
Urine Bilirubin 1+ A
(Negative)
Leukocyte Esterase Rfl 2+ A
(Negative)
Urine WBC (Reflex) 30-40 A /HPF
(0-5)
Urine Bacteria (Reflex) Few A
(Negative)
08/23/24 17:04
08/23/24 17:04
Vital Signs
Initial and Last Documented VS:
Initial Vital Signs
Temp Pulse Resp BP Pulse Ox
98.2 F 90 16 172/87 98
08/23/24 16:46 08/23/24 16:46 08/23/24 16:46 08/23/24 16:46 08/23/24 16:46
Last Documented Vital Signs
Temp Pulse Resp BP Pulse Ox
98.2 F 73 18 128/78 99
08/24/24 15:30 08/24/24 15:30 08/24/24 15:30 08/24/24 15:30 08/24/24 15:30
<Lebron Abreu MD - Last Filed: 08/24/24 18:42>
MDM/Problems Addressed
Differential Diagnosis Includes:
Patient with renal insufficiency new onset with episodes of hypotension and cognitive issues. Unsure if these are totally related but they may be. Renal insufficiency may be dehydration associated but also taking significant NSAIDs. Discussed
with nephrology. Feel it prudent to have patient admitted for further care. Hold the losartan.
<Lebron Abreu MD - Last Filed: 08/24/24 18:42>
*Radiology
Radiology exam reviewed: radiology read reviewed (Negative head CT)
*Pulse Oximetry
Patient hypoxic: no
*Brush Material Preparer Interpretation
Rate: normal
Interpretation: normal
Heart Rate: 80
Rhythm: sinus
*Critical Care Note
Total Time (30-74mins, 75-104mins- exclusive of procedures): Not Applicable
Data Reviewed
Review of Other/Old Records Reveals: Labs, Records and Testing
ED Attending Note
<Sergio Nj Jr., PA-C - Last Filed: 08/23/24 16:47>
-
Portions of this chart may have been created with voice recognition software.� Occasional wrong word or��sound alike� substitutions may have occurred due to the inherent limitations of voice recognition software.
Discharge Plan
Departure
Patient Disposition: Admit
Date of Disposition: 08/23/24
Time of Disposition: 20:32
Presentation/result/management discussed w/ accepting MD/DO: Nephrology
Discharge Problem:
New onset renal insufficiency, Intermittent cognitive issues, Episodic hypotension
Interventions
Interventions:
*Risk Screen - Suicide Last Done: 08/23/24 16:46
*General Assessment Last Done: 08/23/24 18:18
*Neglect/Abuse Screening Last Done: 08/23/24 16:46
ED- Fall Risk Assessment Last Done: 08/23/24 18:18
*ED COVID-19 Vaccine History Last Done: 08/23/24 18:18
*Nursing Disposition Last Done: 08/23/24 22:36
Discharge Date and Time
Discharge Date/Time: 08/23/24 22:38
[2024-08-23 17:19] LABS: % Basophils 0.7 % (0-2); % Eosinophils 4.3 % (0-6); % Immature Granulocytes 0.6 % (0-0.5); % Lymphocytes 28.4 % (20.5-51.1); % Monocytes 5.6 % (1.7-9.3); % Neutrophils 60.4 % (42.2-75.2); Absolute Basophils 0.1 10^3/uL (0-0.2); Absolute Eosinophils 0.4 10^3/uL (0-0.7); Absolute Immature Granulocytes 0.1 10^3/uL (0-0.05); Absolute Lymphocytes 2.6 10^3/uL (1.2-3.4); Absolute Monocytes 0.5 10^3/uL (0.1-0.6); Absolute Neutrophils 5.5 10^3/uL (1.4-6.5); Hematocrit 33.5 % (37.0-47.0); Hemoglobin 11.2 g/dL (12.0-16.0); Mean Corp Hgb Conc. 33.4 g/dL (33.0-37.0); Mean Corpuscular Hgb 29.2 pg (27.0-31.0); Mean Corpuscular Volume 87.2 fL (81.0-99.0); Nucleated Red Blood Cells % 0 %; Platelet Count 416 10^3/uL (130-400); Red Blood Cell Count 3.84 10^6/uL (4.20-5.40); Red Cell Dist. Width 13.4 % (11.5-14.5); White Blood Cell Count 9.1 10^3/uL (4.8-10.8)
[2024-08-23 17:25] LABS: Lactic Acid 1.8 mmol/L (0.7-2.0)
[2024-08-23 17:29] LABS: ALT (SGPT) 14 U/L (0-35); AST (SGOT) 19 U/L (14-36); Albumin 3.8 g/dl (3.5-5.0); Alkaline Phosphatase 147 U/L (38-126); Blood Urea Nitrogen 25 mg/dl (7-17); Calcium 9.8 mg/dl (8.4-10.2); Carbon Dioxide 24 mmol/L (22-30); Chloride 101 mmol/L (98-107); Glucose 128 mg/dl (70-99); Potassium 3.3 mmol/L (3.5-5.1); Sodium 138 mmol/L (135-145); Total Bilirubin 0.7 mg/dl (0.2-1.3); eGFR 20.69
[2024-08-23 17:39] LABS: Troponin I 0.014 ng/ml
[2024-08-23 18:00] LABS: TSH Reflex To Free T4 1.05 uIU/ml (0.47-4.68)
[2024-08-23 18:18] VITALS: BMI 31.7
[2024-08-23 18:39] VITALS: BP 114/80
[2024-08-23 18:49] LABS: Urine Albumin Trace (Neg - Trace); Urine Bilirubin 1+ (Negative); Urine Character Slightly Cloudy (Clear); Urine Color Yellow; Urine Glucose Negative (Negative); Urine Ketone Negative (Negative); Urine Leukocyte 2+ (Negative); Urine Nitrite Negative (Negative); Urine Occult Blood Negative (Negative); Urine Specific Gravity 1.015 (<1.030); Urine Urobilinogen Negative (Neg - 1+)
[2024-08-23 19:34] LABS: Urine Bacteria Few (Negative); Urine Red Blood Cell 0-2 /HPF (0-2); Urine Squamous Cell >30 /LPF (Few); Urine White Cell 30-40 /HPF (0-5)
[2024-08-23] MEDS: NSS 500 IV (21:02)
--- NOTE | 2024-08-23 21:17 | HPS.HSE ---
Family Physician
-
Family Physician: Lebron Mcgill
Chief Complaint
-
Abnormal blood work and forgetful episodes
History of Present Illness
This is a 64-year-old with past medical history significant for hypertension, GERD, no chronic pain and hyperlipidemia who presents to the emergency department after her primary care noticed abnormalities in the blood work with elevated creatinine.
She has also been having symptoms of forgetfulness for the last 2 weeks.
Patient reported she had an episode initially 2 weeks ago when she forgot her password at work. This lasted for about 4 hours and then resolved. Then about a week later she had an episode where she forgot that she was supposed to stay at work and
she just left. Coworkers were very concerned. She had multiple calls at home to determine what was going on.
She reported there was also an episode at home more recently where she felt that she was in a different home. She otherwise denies any hallucinations. She denies headaches. She denies any hearing changes.
Patient reports that she takes Aleve at least twice a day and sometimes more with pain medications. She was started on omeprazole 1 year ago. She denies any recent antibiotics. She denies any other medication changes.
In the emergency department she was normotensive with a blood pressure of 114/80 pulse 90 and satting 99% on room air. She was afebrile. CBC was unremarkable. Blood work was notable for a creatinine that is 2.5 up from 1.4 previously. BUN is
still slightly high at 26. UA shows leukocytosis and WBCs with a few bacteria but otherwise unremarkable. The kidney bladder ultrasound shows no significant abnormality. Head CT was unremarkable.
Medical History
Past Medical History
Past Medical History: Reports GERD, HTN and Hypercholesterolemia
Past Surgical History: Reports Other
Social History
Tobacco: Non-smoker
Alcohol: None
Drug: None
Personal: Single
Living: Alone
Employment: Employed
Family History
Family History: Not pertinent
Allergies / Home Medications
Allergies reflects when Allergies were last updated in [facility].
Home Medications with original date entered in [facility]
Allergy/Medication List:
Allergies
Allergy/AdvReac Type Severity Reaction Status Date / Time
No Known Allergies Allergy Verified 08/23/24 16:48
Home Medications
atenolol 50 mg tablet 50 mg PO BID Blood pressure 03/14/17
sumatriptan succinate 50 mg tablet 50 mg PO DAILYPRN PRN migraine 09/06/18
omeprazole 20 mg tablet,delayed release 20 mg PO DAILY Gastrointestinal issue 12/13/20
lorazepam 0.5 mg tablet 0.5 mg PO BIDPRN PRN anxiety 09/08/22
losartan 50 mg tablet 50 mg PO BID Blood pressure #1 tab 09/08/22
polyethylene glycol 3350 17 gram oral powder packet 17 g PO DAILYPRN PRN Constipation #0 ea 09/08/22
amlodipine 2.5 mg tablet 2.5 mg PO DAILY 06/19/24
atorvastatin 20 mg tablet 20 mg PO DAILY 06/19/24
hydrochlorothiazide 12.5 mg tablet 12.5 mg PO DAILY 06/19/24
naproxen sodium 220 mg capsule (Aleve) 440 mg PO BIDPRN PRN mild pain 06/19/24
cyclobenzaprine 5 mg tablet 5 mg PO HSPRN PRN spasms 08/23/24
Review of Systems
-
History Source: Patient
Constitutional: Reports No Symptoms
EENT: Reports No Symptoms
Respiratory: Reports No Symptoms
Cardiac: Reports No Symptoms
Abdomen/GI: Reports No Symptoms
: Reports No Symptoms
Musculoskeletal: Reports No Symptoms
Skin: Reports No Symptoms
Neurological: Reports No Symptoms
Endocrine: Reports No Symptoms
Hematologic/Lymphatic: Reports No Symptoms
Psych: Reports No Symptoms
Physical Exam
Vital Signs
Vital Signs
Temp Pulse Resp BP Pulse Ox
98.2 F 90 16 114/80 98
08/23/24 16:46 08/23/24 16:46 08/23/24 16:46 08/23/24 18:39 08/23/24 18:40
Physical Exam
General: Well Developed, Well Nourished, No Apparent Distress and Comfortable
HEENT: NormoCephalic, Anicteric, Moist mucous membranes and Atraumatic
Respiratory: Clear
Cardiac: S1/S2 and Regular Rhythm
GI: Soft, Non Distended and Tender
Rectal: Deferred by Provider
Genito-urinary: Clear Urine
Musculoskeletal: No Clubbing, No Cyanosis and No Edema
Skin: Warm
Neuro: AO x 3, No Motor Deficits and Nonfocal/grossly intact
Hematologic/Lymphatic: No Lymphadenopathy
Psych: Calm
Laboratory Results
-
08/23/24 17:04
08/23/24 17:04
Laboratory Results
Lactic Acid 1.8 mmol/L (0.7-2.0) 08/23/24 17:04
Total Bilirubin 0.7 mg/dl (0.2-1.3) 08/23/24 17:04
AST 19 U/L (14-36) 08/23/24 17:04
ALT 14 U/L (0-35) 08/23/24 17:04
Alkaline Phosphatase 147 U/L (38-126) H 08/23/24 17:04
Troponin I 0.014 ng/ml 08/23/24 17:04
Data Reviewed
-
CT Scan: Report Reviewed by me
Ultrasound: Report Reviewed by me
Lab Data: Labs Reviewed by me
Old Records: Reviewed
Impression/Plan
-
IMPRESSION:
64 y.o w/ h/o HTN here with MARTHA and episodes of abnormal mentation. History of arthritis but no diagnosis of connective tissue disease
PLAN:
MARTHA - No obstruction/hydronephrosis on U/S. H/O NSAID use. No other new medications No infection. Picture c/w intrarenal /parenchymal process.
- admit to med/surg
- hold losartan and hctz for now
- gentle hydration overnight
- check urine protein/creatinine
- check spep/upep, RF, esr,radha and anca screen
- with urinary wbc and no uti on history cannot rule out ain, no peripheral eos
- nephrology consult
Abnormal mentation - Intermittent episodes suggestive of possible subacute dementia.
- check tsh, esr, b12, rpr
- normal ct, no evidence of strokes
HTN
- continue atenolol and norvasc
U/A with positive wbc and le but few bacteria and no nitrites, lots of squamos cells. No urinary symptoms.
- urine cultures sent, hold abx
- ? interstitial nephritis, holding omeprazole,, nsaids
LFT elevation - Mild elevation in aphos which have been chronically so, f/u with pmd, possibly non-hepatic source
DVT PPX - heparin sq
Code status - full code
[2024-08-23 22:30] VITALS: BP 174/102; BMI 31.0
[2024-08-23] MEDS: HEPARIN 5000 UNITS SC (23:05)
[2024-08-23] MEDS: NSS 1000 IV (23:06)
[2024-08-23 23:30] VITALS: BP 123/80
[2024-08-24 06:42] LABS: Hematocrit 30.9 % (37.0-47.0); Mean Corp Hgb Conc. 32.4 g/dL (33.0-37.0); Mean Corpuscular Hgb 29.1 pg (27.0-31.0); Mean Corpuscular Volume 89.8 fL (81.0-99.0); Platelet Count 321 10^3/uL (130-400); Red Blood Cell Count 3.44 10^6/uL (4.20-5.40); Red Cell Dist. Width 13.4 % (11.5-14.5); White Blood Cell Count 7.5 10^3/uL (4.8-10.8)
[2024-08-24 06:56] LABS: Blood Urea Nitrogen 23 mg/dl (7-17); Calcium 8.9 mg/dl (8.4-10.2); Carbon Dioxide 29 mmol/L (22-30); Chloride 103 mmol/L (98-107); Creatine Phosphokinase 58 U/L (30-135); Estimated Creatinine Clearance 29 ml/min; Glucose 88 mg/dl (70-99); Magnesium 1.7 mg/dl (1.6-2.3); Potassium 3.4 mmol/L (3.5-5.1); Sodium 141 mmol/L (135-145); eGFR 27.04
[2024-08-24 07:30] VITALS: BP 132/71
[2024-08-24 07:44] LABS: Vitamin B12 < 159 pg/ml (239-931)
--- NOTE | 2024-08-24 08:19 | W.PN.HOSP.TC ---
Today's Communication/Plan
-
Continue monitoring patient's mental status for any changes. Continue giving IV fluids. Replete vitamins
Assessment / Plan
Assessment / Plan
Assessment:
64 year old female wit sprague past medical history of hypertension, GERD, and hyperlipidemia came to the emergency department after her labwork showed elevated creatinine levels. Patient had been having altered mental status especially during work where
she has been a bit forgetful and dizzy at times. Patient was started on IV fluids and her symptoms seemed to have resolved mostly.
PLAN:
#MARTHA
- holding home hypertension medication
- given IVF
- Awaiting urine protein/creatinine results
- Awaiting spep/upep, RF, esr,radha and anca screen
- Creatinine trending down (from 2.5->2.0)
- Continue to monitor BMP
- nephrology consulted, input appreciated
#Abnormal mentation with Intermittent episodes suggestive of possible subacute dementia.
- B12 levels low (<159) start repletion
- CPK normal limits
- No abnormalities seen on CT scan
#HTN
- continue atenolol and norvasc
# U/A with positive wbc and le but few bacteria and no nitrites, lots of squamos cells. No urinary symptoms.
- awaiting urine cultures
- No leukocytosis or fever
- No abx at this time
- possibly due to interstitial nephritis: holding omeprazole,, nsaids
#LFT elevation
-Mild elevation in Alkaline phosphatase, continue monitoring
DVT PPX - heparin sq
Code status - full code
Anticipated Discharge: 24 - 48 hours
Subjective/Interval History
-
Date of Service: August 24, 2024
Patient says that she has been feeling much better now that she has had some fluids. She says that she has not been drinking enough fluids for a while now as compared to before. She does not have any changes in diet which she can remember.
Objective Data
-
Labs:
Laboratory Results
08/24/24
06:01
WBC 7.5
Hgb 10.0 L
Hct 30.9 L
Plt Count 321 D
Sodium 141
Potassium 3.4 L
Chloride 103
Carbon Dioxide 29
BUN 23 H
Creatinine 2.0 H
Glucose 88
Calcium 8.9
Vital Signs:
Vital Signs
Temp Pulse Resp BP Pulse Ox
97.6 F 68 16 132/71 97
08/24/24 07:30 08/24/24 07:30 08/24/24 07:30 08/24/24 07:30 08/24/24 07:30
I&O
08/23/24 08/24/24 08/25/24
06:59 06:59 06:59
Intake Total 1080 / 1080
Balance 1080 / 1080
Review of Systems
-
History Source: Patient
Constitutional: Denies No Appetite, Fatigue, Sleep Disturbance, Chills or Weakness
EENT: Reports No Symptoms Reported
Respiratory: Denies Cough, Trouble Breathing or Wheezing
Cardiac: Denies Chest Pain
Abdomen/GI: Denies Abdominal Pain, Nausea or Vomiting
Genitourinary: Reports No Symptoms
Musculoskeletal: Reports No Symptoms
Skin: Reports No Symptoms
Neuro: Reports No Symptoms
Endocrine: Reports No Symptoms
Hematologic / Lymphatic: Reports No Symptoms
Allergy / Immunology: Reports No Symptoms
Physical Exam
-
General: Well Developed, Well Nourished, No Apparent Distress and Comfortable
HEENT: Normocephalic, Atraumatic and Moist Mucous Membranes
Respiratory: Clear to Auscultation and Non Labored Respirations
Cardiac: Regular Rhythm and S1/S2
GI: Soft, Nontender, Nondistended and Normal Bowel Sounds
Musculoskeletal: No Clubbing, No Cyanosis and No Edema
Skin: Warm and Dry
Neuro: Awake, Alert, Oriented, AO x 3 and No Motor Deficits
Psych: Calm and Intact Judgement/Insight
Data Reviewed
-
CT Scan: Report Reviewed by me, Discussed with Physician, Discussed with Nurse and Discussed with Patient
Labs: Labs Reviewed by me, Discussed with Physician, Discussed with Nurse and Discussed with Patient
[2024-08-24 09:14] LABS: Erythrocyte Sed Rate 34 mm/hour (0-20)
[2024-08-24] MEDS: HEPARIN SC ×3 (09:34→15:53)
[2024-08-24] MEDS: TENORMIN 50 MG PO ×2 (09:34→20:08)
[2024-08-24] MEDS: NORVASC 2.5 MG PO (09:34)
[2024-08-24] MEDS: LIPITOR 20 MG PO (09:35)
[2024-08-24] MEDS: NSS 1000 IV ×2 (09:35→18:30)
--- NOTE | 2024-08-24 10:21 | CM ---
Patient seen at bedside.
Dx: MARTHA
IA completed. CM consult completed for Advanced Directives. Patient given resources.
Lives in a condo alone on the second floor, 12 steps to enter condo.
PLOF: Independent, working, drives
Denies DME
Denies HH/has had outpatient PT rehab in past
Denies insecurities
PCP: Lebron Mcgill
Pharmacy: [address], [place]
PLAN: Home, no needs anticipated
--- NOTE | 2024-08-24 12:05 | W.PN.UPDATE ---
Update Note
Progress Note Update
I saw and evaluated the patient. I reviewed the resident�s note and agree with findings and plan as documented in the resident�s note.
Pt states she feels better than when she was admitted.
Gen: NAD, AAOx3.
Eyes: EOMI, PERRLA, no scleral icterus.
Neck: supple.
CV: RRR, +S1/S2, no m/r/g.
Resp: CTAB, no rales, wheezes, or rhonchi.
Abd: +BS, soft, NT, ND
Skin: No rashes.
Neuro: CN 2-12 intact, non-focal.
Psych: Normal mood and affect.
Renal U/S: 3.5 cm right renal cyst. Otherwise normal.
CT brain: No focal or acute intracranial abnormalities. Mild diffuse cortical and cerebellar atrophy.
MARTHA:
-No obstruction/hydronephrosis on U/S. H/O NSAID use. No other new medications No infection. Picture c/w intrarenal /parenchymal process.
-holding home losartan/HCTZ for now
-UP/Cr 0.3
-Cr improving with IVFs and holding home losartan/HCTZ
-renal c/s
Abnormal mentation:
-Intermittent episodes suggestive of possible subacute dementia although B12 low (this qualifies as acute metabolic encephalopathy), start IM B12
Other problems:
Essential HTN: continue atenolol and norvasc
Obesity due to excess calories
Mildly elevated alkaline phosphatase
FULL/heparin
[2024-08-24 12:06] LABS: Protein/creatinine Ratio 0.3; Urine Protein 21 mg/dl
[2024-08-24 12:17] LABS: Body Fluid for Eosinophils 1% Eosinophils seen
[2024-08-24 13:20] LABS: Syphilis/T. pallidum Ab Reflex Negative (Negative)
[2024-08-24] MEDS: CYANOCOBALAMIN 1000 MCG IM (13:49)
[2024-08-24 15:30] VITALS: BP 128/78
[2024-08-24] MEDS: LOVENOX 30 MG SC (16:57)
--- NOTE | 2024-08-24 17:02 | W.CON.NEPH ---
Consultation
-
Date/Time Consultation Requested: 08/24/24 730 AM
Date/Time Consultation Performed: 08/24/2024 5:00 PM
Requesting Provider: Dr. Hawkins
Performing Provider: Dr. Li
Reason for Consultation: Acute kidney injury
Medical History
-
Chief Complaint: Acute kidney injury
History of Present Illness:
The patient is a 64-year-old female with a past medical history of multidrug hypertension and is maintained on amlodipine atenolol hydrochlorothiazide and losartan. She is maintained chronically on proton pump inhibitor for GERD. She has a history
of dyslipidemia and is maintained on statin therapy. The patient reports that she does take Aleve at least twice a day for pain she presented to the emergency room last evening for acute kidney injury and symptomatic forgetfulness. She was sent to
the emergency room by her primary care physician. She initially started having episodes of sudden forgetfulness approximately 2 weeks prior. . Apparent leave these episodes lasted for 4 hours and then resolved. When she presented to the emergency
room last evening she was normotensive with stable vital signs. She was in acute kidney injury with her creatinine up to 2.5 from a 1.4 baseline previously noted. Nephrology was asked to evaluate her for her acute kidney injury.
Past Medical History
GERD
Hypertension
Dyslipidemia
CKD (creatinine 1.4 as of 06/24/24)
Social History
Tobacco: Non-Smoker
Alcohol: None
Family History
No CKD
Allergies / Home Medications
Allergy/AdvReac Type Severity Reaction Status Date / Time
No Known Allergies Allergy Verified 08/23/24 16:48
�Medication �Instructions �Recorded �Confirmed �Type
atenolol 50 mg tablet 50 mg PO BID Blood pressure 03/14/17 08/23/24 History
sumatriptan succinate 50 mg tablet 50 mg PO DAILYPRN PRN migraine 09/06/18 08/23/24 History
omeprazole 20 mg tablet,delayed 20 mg PO DAILY Gastrointestinal 12/13/20 08/23/24 History
release issue
lorazepam 0.5 mg tablet 0.5 mg PO BIDPRN PRN anxiety 09/08/22 08/23/24 History
losartan 50 mg tablet 50 mg PO BID Blood pressure #1 tab 09/08/22 08/23/24 Rx
polyethylene glycol 3350 17 gram 17 g PO DAILYPRN PRN Constipation 09/08/22 08/23/24 Rx
oral powder packet #0 ea
amlodipine 2.5 mg tablet 2.5 mg PO DAILY 06/19/24 08/23/24 History
atorvastatin 20 mg tablet 20 mg PO DAILY 06/19/24 08/23/24 History
hydrochlorothiazide 12.5 mg tablet 12.5 mg PO DAILY 06/19/24 08/23/24 History
naproxen sodium 220 mg capsule 440 mg PO BIDPRN PRN mild pain 06/19/24 08/23/24 History
(Aleve)
cyclobenzaprine 5 mg tablet 5 mg PO HSPRN PRN spasms 08/23/24 08/23/24 History
Review of Systems
-
All other systems: Negative unless noted
Constitutional: Fatigue and Other (Malaise)
EENT: Other (Issues with dizziness)
Respiratory: No Symptoms
Cardiac: No Symptoms
Abdomen/GI: No Symptoms
: No Symptoms
Musculoskeletal: Other (Chronic arthralgias in knees and hands)
Skin: No Symptoms
Neurological: Other (Increased frequency of forgetfulness and confusion)
Endocrine: No Symptoms
Hematologic/Lymphatic: No Symptoms
Physical Exam
Vital Signs
Vital Signs
Temp Pulse Resp BP Pulse Ox
98.2 F 73 18 128/78 99
08/24/24 15:30 08/24/24 15:30 08/24/24 15:30 08/24/24 15:30 08/24/24 15:30
Lab Results
08/24/24 06:01
08/24/24 06:01
WBC 7.5 10^3/uL (4.8-10.8) 08/24/24 06:01
RBC 3.44 10^6/uL (4.20-5.40) L 08/24/24 06:01
Hgb 10.0 g/dL (12.0-16.0) L 08/24/24 06:01
Hct 30.9 % (37.0-47.0) L 08/24/24 06:01
Plt Count 321 10^3/uL (130-400) D 08/24/24 06:01
Sodium 141 mmol/L (135-145) 08/24/24 06:01
Potassium 3.4 mmol/L (3.5-5.1) L 08/24/24 06:01
Chloride 103 mmol/L (98-107) 08/24/24 06:01
Carbon Dioxide 29 mmol/L (22-30) 08/24/24 06:01
BUN 23 mg/dl (7-17) H 08/24/24 06:01
Creatinine 2.0 mg/dL (0.6-1.0) H 08/24/24 06:01
eGFR 27.04 08/24/24 06:01
Glucose 88 mg/dl (70-99) 08/24/24 06:01
Calcium 8.9 mg/dl (8.4-10.2) 08/24/24 06:01
Albumin 3.8 g/dl (3.5-5.0) 08/23/24 17:04
Physical Exam
General: Well Developed, Well Nourished, No Apparent Distress and Comfortable
HEENT: NormoCephalic, Anicteric, Moist mucous membranes and Atraumatic
Respiratory: Clear
Cardiac: S1/S2 and Regular Rhythm
GI: Soft, Non Distended and Tender
Rectal: Deferred by Provider
Genito-urinary: Clear Urine
Musculoskeletal: No Clubbing, No Cyanosis and No Edema, musculoskeletal strength 5 out of 5 in both upper and lower extremities
Skin: Warm
Neuro: AO x 3, No Motor Deficits and Nonfocal/grossly intact
Hematologic/Lymphatic: No Lymphadenopathy
Psych: Calm
Vascular +1 radial +1 dorsalis pedis pulses
Data Reviewed
-
CT Scan: Report Reviewed by me (CT of head reviewed no abnormalities other than mild diffuse cortical and cerebral atrophy)
Ultrasound: Report Reviewed by me (Renal ultrasound: 3.5 cm cyst, normal-sized kidneys without hydronephrosis or echotexture changes)
Labs: Labs Reviewed by me (BMP CBC urinalysis)
Old Records: Reviewed (Creatinine from date June 2024 1.4)
Assessment/Plan
-
Impression:
MARTHA
CKD 3a
Intermittent mental status changes
Intermittent hypotension
Hypertension
Dyslipidemia
GERD
Anemia
Plan:
MARTHA:
-New workup initiated
-Kidney ultrasound without significant findings, no evidence of obstructive uropathy
-Urinalysis shows trace albumin no blood: i.e. no strong evidence for glomerular nephritis
-Of note 1% urine eosinophils identified could be related to proton pump inhibitor vs NSAID, no associated peripheral eosinophilia
-With holding NSAIDs and ARB and thiazide
-Of note ARB was doubled this past year
-MARTHA is likely due to combination of NSAID and ARB administration
-Blood pressure controlled currently with amlodipine and atenolol
-Follow-up a.m. cortisol level RE: intermittent hypotension
-Check urine protein to creatinine ratio and SPEP in setting of abnormal kidney function and anemia to assess for dysproteinemia process
[2024-08-24] MEDS: ATIVAN 0.5 MG PO (23:04)
[2024-08-24 23:39] VITALS: BP 125/69
[2024-08-25] MEDS: NSS 1000 IV ×2 (04:22→14:31)
--- NOTE | 2024-08-25 06:48 | W.PN.UPDATE ---
Update Note
Progress Note Update
I saw and evaluated the patient. I reviewed the resident�s note and agree with findings and plan as documented in the resident�s note.
No new complaints.
Gen: NAD, Awake and alert
Eyes: EOMI, PERRLA, no scleral icterus.
Neck: supple.
CV: remains RRR, +S1/S2, no m/r/g.
Resp: CTAB anteriorly, no rales, wheezes, or rhonchi.
Abd: +BS, soft, NT, ND
Skin: No rashes.
Neuro: CN 2-12 intact, non-focal.
Psych: Normal mood and affect.
Renal U/S: 3.5 cm right renal cyst. Otherwise normal.
CT brain: No focal or acute intracranial abnormalities. Mild diffuse cortical and cerebellar atrophy.
MARTHA:
-holding home losartan/HCTZ
-UP/Cr 0.3
-Cr improving with IVFs and holding home losartan/HCTZ, cont IVFs
-renal following
Abnormal mentation:
-Intermittent episodes suggestive of possible subacute dementia although B12 low (this qualifies as acute metabolic encephalopathy), started on IM B12
Hypokalemia:
-PO K
-check Mg
Other problems:
Essential HTN: continue atenolol and norvasc
Obesity due to excess calories
Mildly elevated alkaline phosphatase
FULL/heparin
[2024-08-25 06:57] LABS: Blood Urea Nitrogen 18 mg/dl (7-17); Calcium 8.4 mg/dl (8.4-10.2); Carbon Dioxide 24 mmol/L (22-30); Chloride 110 mmol/L (98-107); Estimated Creatinine Clearance 41 ml/min; Glucose 86 mg/dl (70-99); Potassium 3.3 mmol/L (3.5-5.1); Sodium 143 mmol/L (135-145); eGFR 41.49
[2024-08-25 07:28] LABS: Cortisol, Random 3.6 ug/dl
[2024-08-25 07:30] VITALS: BP 129/71
--- NOTE | 2024-08-25 08:13 | W.PN.HOSP.TC ---
Today's Communication/Plan
-
Continue monitoring for any changes in mental status. Continue monitoring blood pressure.
Assessment / Plan
Assessment / Plan
Assessment:
64 year old female wit sprague past medical history of hypertension, GERD, and hyperlipidemia came to the emergency department after her labwork showed elevated creatinine levels. Patient had been having altered mental status especially during work where
she has been a bit forgetful and dizzy at times. Patient was started on IV fluids and her symptoms seemed to have resolved mostly.
PLAN:
#MARTHA
- holding home hypertension medication
- given IVF
- Awaiting urine protein/creatinine results
- ESR- 34
- Awaiting spep/upep, RF, radha and anca screen
- Creatinine trending down (from 2.5->2.0->1.4)
- Continue to monitor BMP
- nephrology consulted, input appreciated
- 1% urine eosinophils identified thought to be caused by either PPI vs NSAID
- ARB + NSIAD thought to be main cause of MARTHA
- Random cortisol levels normal, check for AM levels
#Abnormal mentation with Intermittent episodes suggestive of possible subacute dementia.
- B12 levels low (<159) start repletion
- CPK normal limits
- No abnormalities seen on CT scan
#Hypokalemia
-Repleted with PO KCL
-Continue monitor and replete as needed
#HTN
- continue atenolol and norvasc
# U/A with positive wbc and le but few bacteria and no nitrites, lots of squamos cells. No urinary symptoms.
- awaiting urine cultures
- No leukocytosis or fever
- No abx at this time
- possibly due to interstitial nephritis: holding omeprazole,, nsaids
#LFT elevation
-Mild elevation in Alkaline phosphatase, continue monitoring
-Follow up outpatient setting
DVT PPX - Lovenox 30mg sc
Code status - full code
Anticipated Discharge: Within 24 hours
Subjective/Interval History
-
Date of Service: August 25, 2024
Patient says that she has been feeling well. Had no concerns or issues overnight.
Objective Data
-
Labs:
Laboratory Results
08/25/24
06:14
Sodium 143
Potassium 3.3 L
Chloride 110 H
Carbon Dioxide 24
BUN 18 H
Creatinine 1.4 H
Glucose 86
Calcium 8.4
Vital Signs:
Vital Signs
Temp Pulse Resp BP Pulse Ox
98.8 F 69 17 125/69 97
08/24/24 23:39 08/24/24 23:39 08/24/24 23:39 08/24/24 23:39 08/24/24 23:39
I&O
08/24/24 08/25/24 08/26/24
06:59 06:59 06:59
Intake Total 1080 / 1080 2700 / 2700
Balance 1080 / 1080 2700 / 2700
Review of Systems
-
History Source: Patient
Constitutional: Reports No Symptoms
EENT: Reports No Symptoms Reported
Respiratory: Denies Cough or Trouble Breathing
Cardiac: Denies Chest Pain or Palpitations
Abdomen/GI: Denies Abdominal Pain, Nausea, Vomiting, Diarrhea or Constipated
Genitourinary: Reports No Symptoms
Musculoskeletal: Reports No Symptoms
Skin: Reports No Symptoms
Neuro: Reports No Symptoms
Endocrine: Reports No Symptoms
Hematologic / Lymphatic: Reports No Symptoms
Allergy / Immunology: Reports No Symptoms
Physical Exam
-
General: Well Developed, Well Nourished, No Apparent Distress and Comfortable
HEENT: Normocephalic, Atraumatic and Moist Mucous Membranes
Respiratory: Clear to Auscultation and Non Labored Respirations
Cardiac: Regular Rhythm and S1/S2
GI: Soft, Nontender, Nondistended and Normal Bowel Sounds
Musculoskeletal: No Clubbing, No Cyanosis and No Edema
Skin: Warm and Dry
Neuro: Awake, Alert, Oriented, AO x 3 and No Motor Deficits
Psych: Calm and Intact Judgement/Insight
Data Reviewed
-
Labs: Labs Reviewed by me, Discussed with Physician, Discussed with Nurse and Discussed with Patient
[2024-08-25] MEDS: TENORMIN 50 MG PO ×2 (08:19→20:21)
[2024-08-25] MEDS: NORVASC 2.5 MG PO (08:19)
[2024-08-25] MEDS: FOLTX 1 TABLET PO (08:19)
[2024-08-25] MEDS: LIPITOR 20 MG PO (08:19)
[2024-08-25] MEDS: KCL 40 MEQ PO (08:36)
[2024-08-25 09:03] LABS: Magnesium 1.6 mg/dl (1.6-2.3)
--- NOTE | 2024-08-25 11:14 | CM ---
Patient seen at bedside.
IMM explained & signed. In chart
PLAN: Home, no needs
[2024-08-25 13:22] LABS: Protein/creatinine Ratio 0.5; Urine Protein 17 mg/dl
[2024-08-25 15:30] VITALS: BP 138/80
[2024-08-25] MEDS: IMODIUM 2 MG PO (16:01)
--- NOTE | 2024-08-25 17:22 | W.PN.NEPH.PH ---
Today's Communication / Plan
-
see plan
Assessment/Plan
-
Impression:
MARTHA
CKD 3a
Intermittent mental status changes
Intermittent hypotension
Hypertension
Dyslipidemia
GERD
Anemia
Plan:
MARTHA:
cr improving to 1.4 with IVF
-Kidney ultrasound without significant findings, no evidence of obstructive uropathy
-Urinalysis shows trace albumin no blood: i.e. no strong evidence for glomerular nephritis, U PCR 500mg/gm of cr, paraprotein w/u pending
-Of note 1% urine eosinophils identified could be related to proton pump inhibitor vs NSAID, no associated peripheral eosinophilia
-cont to hold NSAIDs and ARB and thiazide
-Of note ARB was doubled this past year
-MARTHA is likely due to combination of NSAID and ARB administration
-Blood pressure controlled currently with amlodipine and atenolol
cortisol borderline low, likely ACTH stim test
replace k, repalce b12
labs in am
-
-
Date of Service: August 25, 2024
CC / HPI / ROS
-
Chief Complaint:
MARTHA
History of Present Illness:
cr down to 1.4m k 3.3 low
BP stable
Review of Systems:
no cp or sob
feesl well
diarrhea today took imodium
Labs
-
Labs:
WBC 7.5 10^3/uL (4.8-10.8) 08/24/24 06:01
RBC 3.44 10^6/uL (4.20-5.40) L 08/24/24 06:01
Hgb 10.0 g/dL (12.0-16.0) L 08/24/24 06:01
Hct 30.9 % (37.0-47.0) L 08/24/24 06:01
Plt Count 321 10^3/uL (130-400) D 08/24/24 06:01
Sodium 143 mmol/L (135-145) 08/25/24 06:14
Potassium 3.3 mmol/L (3.5-5.1) L 08/25/24 06:14
Chloride 110 mmol/L (98-107) H 08/25/24 06:14
Carbon Dioxide 24 mmol/L (22-30) 08/25/24 06:14
BUN 18 mg/dl (7-17) H 08/25/24 06:14
Creatinine 1.4 mg/dL (0.6-1.0) H 08/25/24 06:14
eGFR 41.49 08/25/24 06:14
Glucose 86 mg/dl (70-99) 08/25/24 06:14
Calcium 8.4 mg/dl (8.4-10.2) 08/25/24 06:14
Albumin 3.8 g/dl (3.5-5.0) 08/23/24 17:04
Physical Exam
-
Vital Signs:
Vital Signs
Temp Pulse Resp BP Pulse Ox
97.8 F 70 16 138/80 97
08/25/24 15:30 08/25/24 15:30 08/25/24 15:30 08/25/24 15:30 08/25/24 15:30
Cardiovascular:: Regular rate and rhythm
Respiratory:: Bilateral: CTA
Lung Excursion:: Normal
Abdomen:: Nontender and Soft
Extremity Edema:: None: Bilateral:
Reed Catheter: No
[2024-08-25] MEDS: LOVENOX SC (17:33)
[2024-08-25] MEDS: MAGNESIUM SULFATE 100 IV (17:53)
[2024-08-25 19:58] VITALS: BP 151/78
[2024-08-25 21:53] LABS: ANA, IgG Reflex to HEp-2 None Detected (None Detected)
--- NOTE | 2024-08-25 22:52 | PTCARENOTE ---
Rec'd pt at the beginning of the shift from [facility]. Oriented to room. Denies pain. Nss infusing at 100ml/hr. Call holt in reach
[2024-08-25 23:22] VITALS: BP 155/90
[2024-08-25 23:24] LABS: Complement C3 136 mg/dl (88-165)
[2024-08-25] MEDS: ATIVAN 0.5 MG PO (23:26)
[2024-08-26] MEDS: NSS 1000 IV (05:33)
[2024-08-26 06:53] VITALS: BP 137/18
--- NOTE | 2024-08-26 07:38 | W.PN.HOSP.TC ---
Today's Communication/Plan
-
cosyntropin stim test then patient will be cleared for discharge
Assessment / Plan
Assessment / Plan
Assessment:
64 year old female wit sprague past medical history of hypertension, GERD, and hyperlipidemia came to the emergency department after her lab work showed elevated creatinine levels. Patient had been having altered mental status especially during work
where she has been a bit forgetful and dizzy at times. Patient was started on IV fluids and her symptoms seemed to have resolved mostly.
PLAN:
#MARTHA
- holding home hypertension medication
- given IVF
- ESR- 34
- Awaiting spep/upep, RF
- EMMETT screen-> None detected, Complement levels in normal range
- Creatinine trending down (from 2.5->2.0->1.4 -> 1.1)
- Continue to monitor BMP
- nephrology consulted, input appreciated
- 1% urine eosinophils identified thought to be caused by either PPI vs NSAID
- ARB + NSIAD thought to be main cause of MARTHA
- Random cortisol levels normal, cosyntropin stim test today
#Abnormal mentation with Intermittent episodes suggestive of possible subacute dementia.
- B12 levels low (<159) start repletion (IM first)
- PO repletion on discharge
- CPK normal limits
- No abnormalities seen on CT scan
#Hypokalemia
-Repleted with PO KCL
-Continue monitor and replete as needed
#HTN
- continue atenolol and norvasc
#Low Cortisol
-cosyntropin stim test today
#U/A with positive wbc and few bacteria and no nitrites,
- Squamous cells seen on U/A but no urinary symptoms.
- Urine cultures negative
- No leukocytosis or fever
- No abx at this time
- possibly due to interstitial nephritis: holding omeprazole,, nsaids
#LFT elevation
-Mild elevation in Alkaline phosphatase, continue monitoring
-Follow up outpatient setting
DVT PPX - Lovenox 30mg sc
Code status - full code
Anticipated Discharge: Today
Subjective/Interval History
-
Date of Service: August 26, 2024
Patient has been feeling well. No concerns or issues over night except for being made to change rooms abruptly.
Objective Data
-
Vital Signs:
Vital Signs
Temp Pulse Resp BP Pulse Ox
98.7 F 70 18 155/90 99
08/25/24 23:22 08/25/24 23:22 08/25/24 23:22 08/25/24 23:22 08/25/24 23:22
I&O
08/25/24 08/26/24 08/27/24
06:59 06:59 06:59
Intake Total 2700 / 2700 720 / 720
Balance 2700 / 2700 720 / 720
Review of Systems
-
History Source: Patient
Constitutional: Reports Sleep Disturbance
EENT: Reports No Symptoms Reported
Respiratory: Reports No Symptoms
Cardiac: Reports No Symptoms
Abdomen/GI: Reports No Symptoms
Genitourinary: Reports No Symptoms
Musculoskeletal: Reports No Symptoms
Skin: Reports No Symptoms
Neuro: Reports No Symptoms
Endocrine: Reports No Symptoms
Hematologic / Lymphatic: Reports No Symptoms
Allergy / Immunology: Reports No Symptoms
Physical Exam
-
General: Well Developed, Well Nourished, No Apparent Distress and Comfortable
HEENT: Normocephalic, Atraumatic and Moist Mucous Membranes
Respiratory: Clear to Auscultation and Non Labored Respirations
Cardiac: Regular Rhythm and S1/S2
GI: Soft, Nontender, Nondistended and Normal Bowel Sounds
Musculoskeletal: No Clubbing, No Cyanosis and No Edema
Skin: Warm and Dry
Neuro: Awake, Alert, Oriented, AO x 3 and No Motor Deficits
Psych: Calm
Data Reviewed
-
Labs: Labs Reviewed by me, Discussed with Physician, Discussed with Nurse and Discussed with Patient
[2024-08-26 08:31] LABS: Blood Urea Nitrogen 14 mg/dl (7-17); Calcium 8.7 mg/dl (8.4-10.2); Carbon Dioxide 24 mmol/L (22-30); Chloride 111 mmol/L (98-107); Estimated Creatinine Clearance 52 ml/min; Glucose 85 mg/dl (70-99); Potassium 3.4 mmol/L (3.5-5.1); Sodium 142 mmol/L (135-145); eGFR 55.42
[2024-08-26] MEDS: FOLTX 1 TABLET PO (08:40)
[2024-08-26] MEDS: NORVASC 2.5 MG PO (08:40)
[2024-08-26] MEDS: VITAMIN B-12 1000 MCG PO (08:40)
[2024-08-26] MEDS: LIPITOR 20 MG PO (08:40)
[2024-08-26] MEDS: TENORMIN 50 MG PO (08:40)
[2024-08-26 08:56] LABS: ACTH Stim Cortisol 0 Min 5.1 ug/dl
[2024-08-26] MEDS: CORTROSYN 0.25 MG IV (09:03)
--- NOTE | 2024-08-26 09:08 | W.PN.UPDATE ---
Update Note
Progress Note Update
I saw and evaluated the patient. I reviewed the resident�s note and agree with findings and plan as documented in the resident�s note.
No new complaints.
Gen: remains NAD, Awake and alert
Eyes: EOMI, PERRLA, no scleral icterus.
Neck: supple.
CV: continues to remain RRR, +S1/S2, no m/r/g.
Resp: remains CTAB anteriorly, no rales, wheezes, or rhonchi.
Abd: +BS, soft, NT, ND
Skin: No rashes.
Neuro: CN 2-12 intact, non-focal.
Psych: Normal mood and affect.
Renal U/S: 3.5 cm right renal cyst. Otherwise normal.
CT brain: No focal or acute intracranial abnormalities. Mild diffuse cortical and cerebellar atrophy.
MARTHA:
-home losartan/HCTZ were held
-UP/Cr 0.3
-Cr back to baseline of 1.1 s/p IVFs and holding home losartan/HCTZ, stop IVFs
-renal following
Abnormal mentation:
-Intermittent episodes suggestive of possible subacute dementia although B12 low (this qualifies as acute metabolic encephalopathy), started on IM B12
-d/c on PO B12
Hypokalemia:
-40meq PO K now, start 20meq PO K daily
Low Cortisol:
-AM cortisol today is actually normal
-renal has ordered a cosyntropin stim test which will be completed. Patient can address the results with endocrinology after discharge. Of note if the patient did have Covington's disease her sodium should not be low and her potassium should be high.
Other problems:
Essential HTN: continue atenolol and norvasc
Obesity due to excess calories
Mildly elevated alkaline phosphatase
FULL/heparin
Medically cleared for discharge.
Total time spent on d/c = 31 min. This included today's physical exam, progress note, review of laboratory and diagnostic data, preparation of discharge documents and prescriptions, and discussions about the pt's hospital course and discharge plan
with the patient and other medical reception specialist involved in the patient's care.
[2024-08-26] MEDS: KCL 40 MEQ PO (09:18)
[2024-08-26 11:03] LABS: ACTH Stim Cortisol 30 Min 17.7 ug/dl
--- NOTE | 2024-08-26 11:25 | W.DCSUMMARY ---
Discharge Summary
Discharge Data
Date of Admission: 08/23/24
Date of Discharge: 08/26/24
-
Pending Results: Yes
Additional Pending Results:
Total Protein
PEP
Alpha-1 globulin
Alpha-2 globulin
Beta globulin
Gamma globulin
Serum Monoclonal Protein
Serum PEP EER
Serum Immunofixation Reflexed
Rheumatoid Factor
VALE & SPEP
Hospital Course
Discharging Physician : Dr. Bud Hawkins, Dr. Reshma Rob
Disposition : Home
Primary care physician : Dr. Lebron Mcgill
Principal Discharge diagnosis : Acute Kidney Injury
Chronic Discharge diagnosis : Hypertension, Obesity, GERD, Hyperlipidemia
Hospital Course : 64 year old female with a past medical history of hypertension, GERD, and hyperlipidemia came to the [facility] Emergency Department on 08/23/2024 after her lab work showed elevated creatinine levels. Patient had been
having altered mental status especially during work where she has been a bit forgetful and dizzy at times. In the ED, patient under went CT scan of her head which did not show any acute findings. Patient's home medications were held, she was started
on IV fluids and admitted to the hospital for treatment of her acute kidney injury. Her symptoms seemed to resolve as she continued to get IV fluids and she did not have any further instances of mental status changes. Patient was found to be B12
deficient and was given an injection of B12 then started on PO repletion. Patient's acute kidney injury was thought to be caused due to a combination of both NSAIDs and ARBs use. She was found to have low cortisol levels as well. Patient condition
especially her kidney function continued to improve and she was discharged from the hospital when medically cleared. Patient was instructed to follow up with Nephrology in an outpatient setting to go over her ACTH stimulation test results along.
Also instructed patient to follow up with her Primary within the week to go over her blood pressure medications.
Important imaging findings :
CT Head W/o Iv Contrast (08/23/2024)
There are no focal or acute intracranial abnormalities.
There is mild diffuse cortical and cerebellar atrophy
US Renal With Bladder (08/23/2024)
3.5 cm right renal cyst.
Otherwise normal
Procedure findings :
ACTH Stimulation Test:
Cortisol,60 Min - 20.7 ug/dl
Cortisol,30 Min - 17.7 ug/dl
Discharge Plan
-
Patient Disposition: Home (Routine Discharge)
Discharge Diagnosis/Procedures: Acute Kidney Injury
Condition: Good
Diet: Regular
Activity: No restrictions
Driving Restrictions: As prior to admission
Bathing Restrictions: None
Blood Work: Discuss results of cosyntropin stim test with Nephrology outpatient
Referrals:
Garrick Li DO [Active] - in one to two weeks
Lebron Mcgill DO [Family Provider] - in less than 1 week
Prescriptions:
New
cyanocobalamin (vitamin B-12) 1,000 mcg Tablet
1,000 mcg PO DAILY 30 Days Qty: 30 0RF
potassium chloride 20 mEq Tablet,Er Particles/Crystals
20 meq PO DAILY 30 Days Qty: 30 1RF
Continued
atenolol 50 MG tablet
50 mg PO BID
sumatriptan succinate 50 MG tablet
50 mg PO DAILYPRN PRN (Reason: migraine)
omeprazole 20 MG tablet,delayed release (DR/EC)
20 mg PO DAILY
lorazepam 0.5 mg Tablet
0.5 mg PO BIDPRN PRN (Reason: anxiety )
polyethylene glycol 3350 17 gram Powder In Packet
17 g PO DAILYPRN PRN (Reason: Constipation) Qty: 0 0RF
atorvastatin 20 mg Tablet
20 mg PO DAILY
amlodipine 2.5 mg Tablet
2.5 mg PO DAILY
cyclobenzaprine 5 mg Tablet
5 mg PO HSPRN PRN (Reason: spasms)
Discontinued
losartan 50 MG tablet
50 mg PO BID Qty: 1 0RF
hydrochlorothiazide 12.5 mg Tablet
12.5 mg PO DAILY
naproxen sodium [Aleve] 220 mg Capsule
440 mg PO BIDPRN PRN (Reason: mild pain)
Discharge Orders:
Discharge Patient (As Directed); Ordered 08/26/24
Ordered By: Reshma Rob
Discharge Date and Time
Print Language: NIUEAN
[2024-08-26 11:28] LABS: ACTH Stim Cortisol 60 Min 20.7 ug/dl
[2024-08-26 11:37] VITALS: BP 136/74
[2024-08-26 13:31] LABS: Rheumatoid Agglutinin Less Than 10 IU (<10 IU)
== END 2024-08-26 11:40 | disposition home or self-care (01) | DRG 682 ==
LOC: 4 EAST ACU 22:07
PROVIDERS: Internal Medicine; Physician Assistant; ADMITTING PHYSICIAN Internal Medicine; ATTENDING PHYSICIAN Internal Medicine; CONSULT PHYSICIAN Specialist; EMERGENCY PHYSICIAN Emergency Medicine; FAMILY PHYSICIAN Family Medicine
DX: N17.9 Acute kidney failure, unspecified (principal); G93.41 Metabolic encephalopathy; N18.31 Chronic kidney disease, stage 3a; I12.9 Hypertensive chronic kidney disease with stage 1 through stage 4 chronic kidney disease, or unspecified chronic kidney disease; E66.09 Other obesity due to excess calories; Z68.31 Body mass index [BMI] 31.0-31.9, adult; E87.6 Hypokalemia; K21.9 Gastro-esophageal reflux disease without esophagitis; E78.00 Pure hypercholesterolemia, unspecified; Z59.89 Other problems related to housing and economic circumstances
CPT/HCPCS: 70450; 76770; 80048; 80053; 81003; 81015; 81099; 82533; 82550; 82570; 82607; 83605; 83735; 84155; 84156; 84165; 84443; 84484; 85025; 85027; 85652; 86038; 86160; 86430; 86780; 87086; 96360; 96361; 99285

== ENCOUNTER 2024-11-06 22:40 | Emergency (ER) | payer MEDICARE, SELFPAY ==
[2024-11-06 22:40] VITALS: BMI 31.3
[2024-11-06 22:46] VITALS: BP 168/98
[2024-11-06 23:35] VITALS: BP 137/85
--- NOTE | 2024-11-07 00:38 | ED.GENMED ---
History of Present Illness
General
Chief Complaint: Musculo-Skeletal Complaint
Source: patient
Exam Limitations: none
Time Seen by Provider: 11/06/24 23:44
History of Present Illness
History of Present Illness:
Six 4-year-old female states she fell and had a package go right into her ribs that she fell into it. Complains of right rib pain on the lateral aspect of the lower chest. Denies abdominal pain. No shortness of breath.
Past History
Past History
ED Past Medical History: HTN and Hypercholesterolemia
ED Past Surgical History: Orthopedic
Social History
Tobacco: Non-smoker
Alcohol: None
Drug: None
Personal: Single
Living: with family
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
Family History
Family History: Other (Mother with syncope in her 60s)
Phy Exam
Physical Exam
Physical Exam:
CONSTITUTIONAL Vital signs reviewed, Patient alert and oriented to person, place and time. Well-appearing
HEAD atraumatic, normocephalic.
EYES eyelids normal to inspection, Extraocular muscles intact, Conjunctiva normal, Sclera normal.
NECK normal range of motion, Trachea midline, no jugular venous distention.
RESP no respiratory distress, moderate right chest wall tenderness
Abdomen nontender
BACK No obvious deformities
UPPER EXTREMITY Gross Range of motion normal, gross motor strength normal
LOWER EXTREMITY Gross range of motion normal, Gross motor strength normal
NEURO Speech normal, No focal motor deficits include, Owen coma scale 15, Memory normal, Cranial Nerves intact to screening exam.
SKIN Skin warm, dry, and normal in color.
PSYCHIATRIC Patient oriented to person place and time, Normal affect.
Course
Orders/Labs/Results
Orders:
Orders
11/06/24 22:44
Ribs, Right 3 View W/PA Chest [CR Ribs-right 3 Vw W/pa Chest*] Urgent
Comment:
Reason For Exam: FALL
Vital Signs
Initial and Last Documented VS:
Initial Vital Signs
Temp Pulse Resp BP Pulse Ox
97.8 F 78 18 168/98 99
11/06/24 22:46 11/06/24 22:46 11/06/24 22:46 11/06/24 22:46 11/06/24 22:46
Last Documented Vital Signs
Temp Pulse Resp BP Pulse Ox
98.1 F 78 18 137/85 98
11/06/24 23:46 11/06/24 22:46 11/06/24 22:46 11/06/24 23:35 11/06/24 23:37
MDM/Problems Addressed
MDM/Problems Addressed:
Rib fracture
*Radiology
Radiology exam reviewed: radiology read reviewed
*Pulse Oximetry
Patient hypoxic: no
*Critical Care Note
Total Time (30-74mins, 75-104mins- exclusive of procedures): Not Applicable
Data Reviewed
Source: patient
Further Testing Considered But Not Given:
Consider chest CT but isolated rib fracture noted
Patient Management
Escalation/DeEscalation of care consider admission/obs:
No clinical concerns for flail chest. Pain control and outpatient follow-up
ED Attending Note
-
Portions of this chart may have been created with voice recognition software.� Occasional wrong word or��sound alike� substitutions may have occurred due to the inherent limitations of voice recognition software.
Discharge Plan
Departure
Patient Disposition: Home (Routine Discharge)
Date of Disposition: 11/07/24
Time of Disposition: 00:39
Patient with high blood pressure during this ER visit?: No
Discharge Problem:
Closed rib fracture
Instructions: Rib Fracture
Prescriptions:
New
hydrocodone-acetaminophen 5-325 mg tablet
2 tab PO Q6H PRN (Reason: Pain) Qty: 15 0RF
No Action
atenolol 50 MG tablet
50 mg PO BID
sumatriptan succinate 50 MG tablet
50 mg PO DAILYPRN PRN (Reason: migraine)
omeprazole 20 MG tablet,delayed release (DR/EC)
20 mg PO DAILY
lorazepam 0.5 mg Tablet
0.5 mg PO BIDPRN PRN (Reason: anxiety )
polyethylene glycol 3350 17 gram Powder In Packet
17 g PO DAILYPRN PRN (Reason: Constipation) Qty: 0 0RF
atorvastatin 20 mg Tablet
40 mg PO DAILY
amlodipine 2.5 mg Tablet
5 mg PO DAILY
cyanocobalamin (vitamin B-12) 1,000 mcg Tablet
1,000 mcg PO DAILY 30 Days Qty: 30 0RF
Referrals:
Lebron Mcgill DO [Family Provider] -
Activity Restrictions/Additional Instructions:
Please use incentive spirometer 10 times per hour while awake. Return immediately for shortness of breath, cough, fevers, worsening pain or any other concerns. Please see your doctor in the next 3 to 5 days for follow-up and reevaluation.
Interventions
Interventions:
*Risk Screen - Suicide Last Done: 11/06/24 22:41
*General Assessment Last Done: 11/06/24 23:38
*Neglect/Abuse Screening Last Done: 11/06/24 22:41
*ED- Fall Risk Assessment Last Done: 11/06/24 23:38
*ED COVID-19 Vaccine History Last Done: 11/06/24 23:37
*Nursing Disposition Last Done: 11/07/24 00:52
ED-Musculoskeletal Assessment Last Done: 11/06/24 23:36
Discharge Date and Time
Discharge Date/Time: 11/07/24 00:53
Print Language: NIGERIAN
== END 2024-11-07 00:53 | disposition home or self-care (01) ==
LOC: EMR 22:40
PROVIDERS: EMERGENCY PHYSICIAN Emergency Medicine; FAMILY PHYSICIAN Family Medicine
DX: S22.31XA Fracture of one rib, right side, initial encounter for closed fracture (principal); W18.39XA Other fall on same level, initial encounter; I10 Essential (primary) hypertension; E78.00 Pure hypercholesterolemia, unspecified
CPT/HCPCS: 99283; 71101

== ENCOUNTER → 2025-01-21 07:45 | Outpatient (REF) | payer MEDICARE, SELFPAY | LOC: RAD 07:45 | PROVIDERS: ATTENDING PHYSICIAN Family Medicine | DX: R10.11 Right upper quadrant pain (principal) | CPT/HCPCS: 76700 ==

== ENCOUNTER 2025-01-23 22:00 | Inpatient (IN) | payer MEDICARE, SELFPAY ==
[2025-01-23] VITALS (8 sets, daily range): BP systolic 98–182; BP diastolic 73–104; BMI 32.2
[2025-01-23 19:51] LABS: % Basophils 0.2 % (0-2); % Eosinophils 1.7 % (0-6); % Immature Granulocytes 0.3 % (0-0.5); % Monocytes 7.4 % (1.7-9.3); % Neutrophils 63.4 % (42.2-75.2); Absolute Eosinophils 0.2 10^3/uL (0-0.7); Absolute Lymphocytes 2.8 10^3/uL (1.2-3.4); Absolute Monocytes 0.8 10^3/uL (0.1-0.6); Absolute Neutrophils 6.5 10^3/uL (1.4-6.5); Hematocrit 36.2 % (37.0-47.0); Hemoglobin 12.1 g/dL (12.0-16.0); Mean Corp Hgb Conc. 33.4 g/dL (33.0-37.0); Mean Corpuscular Hgb 29.7 pg (27.0-31.0); Mean Corpuscular Volume 88.7 fL (81.0-99.0); Mean Platelet Volume 10.5 fL (7.4-10.4); Nucleated Red Blood Cells % 0 %; Platelet Count 329 10^3/uL (130-400); Red Blood Cell Count 4.08 10^6/uL (4.20-5.40); Red Cell Dist. Width 13.4 % (11.5-14.5); White Blood Cell Count 10.3 10^3/uL (4.8-10.8)
[2025-01-23] MEDS: TORADOL 15 MG IV (19:52)
[2025-01-23] MEDS: NSS 1000 IV (19:52)
[2025-01-23 20:13] LABS: ALT (SGPT) 16 U/L (0-35); AST (SGOT) 21 U/L (14-36); Albumin 3.9 g/dl (3.5-5.0); Alkaline Phosphatase 129 U/L (38-126); Blood Urea Nitrogen 17 mg/dl (7-17); Calcium 9.8 mg/dl (8.4-10.2); Carbon Dioxide 27 mmol/L (22-30); Chloride 106 mmol/L (98-107); Estimated Creatinine Clearance 53 ml/min; Glucose 91 mg/dl (70-99); Lipase 68 U/L (23-300); Potassium 3.7 mmol/L (3.5-5.1); Sodium 139 mmol/L (135-145); Total Bilirubin 0.5 mg/dl (0.2-1.3); Total Protein 6.7 g/dl (6.3-8.2); eGFR 55.42
--- NOTE | 2025-01-23 21:23 | ED.GENMED ---
History of Present Illness
General
Chief Complaint: Abdominal Pain
Time Seen by Provider: 01/23/25 18:59
History of Present Illness
History of Present Illness:
Note:
CHIEF COMPLAINT(S)
Abdominal pain and discomfort.
HISTORY OF PRESENT ILLNESS
The patient is a 64-year-old female who presents with complaints of abdominal pain described as a 'heavy feeling and a burning ache' primarily in the right upper quadrant, extending down through her back. The pain reportedly started approximately
three weeks ago and has been progressively worsening. The patient describes the pain as being severe, rating it around a seven out of ten. She notes that the pain does not always correlate with meals and that her stools have changed to a rahman color,
which she did not notice six months ago, suggesting possible biliary obstruction. Her medical history is significant for a previous episode approximately five years ago when she experienced similar symptoms due to a common bile duct stone requiring
an Endoscopic Retrograde Cholangiopancreatography (ERCP) with stent placement. There has been no recent blood work or GI specialist consultation. The patient reports no current nausea or vomiting, though historically she has experienced sudden onset
vomiting with these symptoms. She is not currently experiencing any darker urine.
EXTERNAL RECORDS REVIEWED
The patient notes a previously normal ultrasound with a recorded 11-millimeter common bile duct dilation. Previous liver function tests (LFTs) were severely abnormal during a similar episode five years ago.
CHRONIC MEDICAL CONDITIONS SIGNIFICANTLY AFFECTING CARE
History of common bile duct stone with ERCP and stent placement five years ago.
ALLERGIES
No known allergies to medications.
FAMILY HISTORY
Patient indicates her sister had a similar issue leading to an extended hospital stay and some type of drainage procedure, though details are unclear.
PHYSICAL EXAM
- General: Patient is well-appearing.
- Cardiovascular: Regular heart sounds with no murmurs, no signs of rapid heart rate.
- Abdomen: Benign with no tenderness, negative [place] sign.
Nursing notes reviewed and vital signs reviewed.
PROBLEM LIST
- Acute abdominal pain with rahman stools and possible biliary obstruction.
- History of common bile duct obstruction.
PLAN
- Perform blood tests including comprehensive metabolic panel, liver function tests, and complete blood count.
- Consider imaging such as a CT scan to evaluate for potential biliary obstruction and decide on further intervention which may include ERCP.
- Administer Ketorolac for pain management.
DIFFERENTIAL DIAGNOSIS
The Differential Diagnosis includes, in no particular order and is not limited to:
1. Biliary colic
2. Choledocholithiasis
3. Cholecystitis
4. Acute pancreatitis
5. Hepatitis
6. Peptic ulcer disease
7. Gastritis
8. Gallstone ileus
9. Sphincter of Oddi dysfunction
10. Gallbladder carcinoma
CARE-UPDATE
01/23/25 - 20:52
Patient reports slight improvement in pain. Awaiting CT results; LFTs are essentially normal, indicating alternative to cholecystasis should be considered. Reassessment planned post-CT.
Disposition:
SUMMARY OF ENCOUNTER
The patient, a 64-year-old female, was seen in the emergency department for abdominal pain and changes in stool color, raising concerns for biliary obstruction. A CT scan confirmed biliary ductal dilation and identified a questionable filling defect
in the common bile duct. Based on these findings, the decision has been made to admit the patient for further evaluation and management.
DISPOSITION
Admit
CONSIDERATION FOR ADMISSION
The patient is being admitted for further evaluation by a GI specialist and potential intervention such as MRCP or ERCP.
PLAN
The management plan includes admission to the hospital with a consultation to the GI service for further evaluation, including possibilities of undergoing MRCP or ERCP to address the potential common bile duct obstruction.
MANAGEMENT OF THE PATIENTS CARE WAS DISCUSSED WITH
Hospitalist service via [facility] for admission
INDEPENDENT INTERPRETATION OF TESTS
CT scan confirms biliary ductal dilation with a questionable filling defect in the common bile duct.
MEDICAL DECISION MAKING
Number and Complexity of Problems Addressed:
The patient presented with acute abdominal pain and possible biliary obstruction.
Data:
The CT scan results showing biliarty ductal dilation and a filling defect in the common bile duct were used in decision-making to admit the patient for further consultation and possible procedures.
Risk:
Consideration was given to admit the patient due to the need for specialized GI evaluation, potential surgical intervention, and for the management of potential complications related to a suspected bile duct obstruction. At this time the patient is
not ill however will give prophylactic antibiotics to prevent cholangitis
Past History
Past History
ED Past Medical History: HTN and Hypercholesterolemia
ED Past Surgical History: Orthopedic
Social History
Tobacco: Non-smoker
Alcohol: None
Drug: None
Personal: Single
Living: with family
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
Family History
Family History: Other (Mother with syncope in her 60s)
Phy Exam
Physical Exam
Physical Exam:
.
Course
Orders/Labs/Results
Orders:
Orders
01/23/25 19:27
CT Abd/Pel (IV only)- only Urgent
Comment:
Reason For Exam: RUQ pain, dilated CBD on US
0.9% Sodium Chloride 1000 ml [Nss] 1,000 ml IV BOLUS
Ketorolac [Toradol] 15 mg IV NOW STA
01/23/25 19:44
Complete Blood Count/With Diff Urgent
Comprehensive Metabolic Panel Urgent
Lipase Urgent
01/23/25 21:25
CefTRIAXone [Rocephin] 1,000 mg IV NOW STA
01/23/25 21:42
Admit/Transfer Patient As Directed
Co-Sign Provider:
Level of Care: Inpatient admission
Assign to:: Medical/Surgical
Physician / Group: Willy
Diagnosis: CBD Dilation
Reason for Hospitalization: MRI/MRCP
Expected length of stay greater than two midnights?: Yes
ELOS- Estimated Length of Stay in days: 2
I certify the patient meets the requirements for IP care: Yes
01/23/25 21:43
PRN Pain Medication Management As Directed
May give lesser potent ordered pain med per pt: Yes
preference::
Protocol:: Medication orders for pain may be administered in a
manner that supports deferring to patient preference
when the pt is:
- Requesting an ordered lesser potent pain medication.
Least to most potent pain medications are defined
as: acetaminophen < NSAID < tramadol < opioids
(morphine, oxycodone, hydromorphone).
- Requesting a lesser dose of the same medication IF
ORDERED.
- Requesting a less intrusive route of administration
if both routes are prescribed by the provider (PO <
IV).
01/23/25 21:45
Code Status As Directed
Resuscitation Status: Full Code
01/23/25 22:00
Flush (0.9% Sodium Chloride) [Flush (Nss)] See Dose Instructions IV PER PROTOCOL
Abnormal Lab Results
01/23/25
19:44
RBC 4.08 L 10^6/uL
(4.20-5.40)
Hct 36.2 L %
(37.0-47.0)
MPV 10.5 H fL
(7.4-10.4)
Absolute Monos (auto) 0.8 H 10^3/uL
(0.1-0.6)
Creatinine 1.1 H mg/dL
(0.6-1.0)
Alkaline Phosphatase 129 H U/L
(38-126)
01/23/25 19:44
01/23/25 19:44
Vital Signs
Initial and Last Documented VS:
Initial Vital Signs
Temp Pulse Resp BP Pulse Ox
98.2 F 70 18 170/104 98
01/23/25 18:56 01/23/25 18:56 01/23/25 18:56 01/23/25 18:56 01/23/25 18:56
Last Documented Vital Signs
Temp Pulse Resp BP Pulse Ox
98.0 F 66 18 153/92 98
01/23/25 19:30 01/23/25 21:30 01/23/25 21:30 01/23/25 21:06 01/23/25 21:30
*Critical Care Note
Total Time (30-74mins, 75-104mins- exclusive of procedures): Not Applicable
ED Attending Note
-
Portions of this chart may have been created with voice recognition software.� Occasional wrong word or��sound alike� substitutions may have occurred due to the inherent limitations of voice recognition software.
Discharge Plan
Departure
Patient Disposition: Admit
Date of Disposition: 01/23/25
Time of Disposition: 21:26
Admit to: Med/Surg
Presentation/result/management discussed w/ accepting MD/DO: Hospitalist
Discharge Problem:
Choledocholithiasis
Interventions
Interventions:
*Risk Screen - Suicide Last Done: 01/23/25 18:56
*General Assessment Last Done: 01/23/25 19:17
*Neglect/Abuse Screening Last Done: 01/23/25 18:56
*ED- Fall Risk Assessment Last Done: 01/23/25 19:17
*ED COVID-19 Vaccine History Last Done: 01/23/25 19:17
FE-Nvmval-Kfphqqsfyo Assessment Last Done: 01/23/25 19:20
--- NOTE | 2025-01-23 21:29 | HPS.HSE ---
Family Physician
-
Family Physician: Sebas Price, DO
Chief Complaint
-
Abdominal Pain
History of Present Illness
Patient is a 64 y/o female past medical history of hypertension, hyperlipidemia, chronic kidney disease, anxiety, GERD and migraine headaches who presents with abdominal pain. Patient reports intermittent right upper quadrant pain for the past few
months, but notes over the past few weeks is has become much worse. She reports nausea and decreased oral intake. She reports rahman colored stools. She reports similar episode about 5 years ago at which time she had an ERCP for a common bile duct
stone. She reports a stent was initially placed but on follow-up endoscopy stent had become dislodged. She denies fevers, sweats or chills.
Medical History
Past Medical History
Past Medical History: Reports Other
Additional Past Medical History:
Essential Hypertension
Hyperlipidemia
CKD Stage IIIA
Anxiety
GERD
Migraine Headache
Past Surgical History: Reports Other
Additional Past Surgical History:
Right Total Knee Replacement
Bilateral Carpal Tunnel
Dental Implants
Bilateral Cataracts
Endometrial Ablation
Social History
Tobacco: Non-smoker
Alcohol: None
Drug: None
Personal: Single
Living: Alone
Employment: Employed (Works in registration in the ED)
Family History
Family History: Not pertinent
Allergies / Home Medications
Allergies reflects when Allergies were last updated in [facility].
Home Medications with original date entered in [facility]
Allergy/Medication List:
Allergies
Allergy/AdvReac Type Severity Reaction Status Date / Time
No Known Allergies Allergy Verified 01/23/25 18:56
Home Medications
atenolol 50 mg tablet 50 mg PO BID Blood pressure 03/14/17
sumatriptan succinate 50 mg tablet 50 mg PO DAILYPRN PRN migraine 09/06/18
omeprazole 20 mg tablet,delayed release 20 mg PO DAILY Gastrointestinal issue 12/13/20
lorazepam 0.5 mg tablet 0.5 mg PO BIDPRN PRN anxiety 09/08/22
polyethylene glycol 3350 17 gram oral powder packet 17 g PO DAILYPRN PRN Constipation #0 ea 09/08/22
atorvastatin 20 mg tablet 20 mg PO DAILY 06/19/24
cyanocobalamin (vitamin B-12) 1,000 mcg tablet 1,000 mcg PO DAILY 30 days #30 tabs 08/26/24
hydrochlorothiazide 12.5 mg tablet 12.5 mg PO DAILY 01/23/25
losartan 50 mg tablet 50 mg PO DAILY 01/23/25
Review of Systems
-
A 12 point ROS was completed and negative except as noted: Yes
Constitutional: Denies Fever or Chills
Respiratory: Denies Cough or Trouble Breathing
Cardiac: Denies Chest Pain or Palpitations
Abdomen/GI: Reports See HPI
Physical Exam
Vital Signs
Vital Signs
Temp Pulse Resp BP Pulse Ox
98.0 F 64 17 122/82 99
01/23/25 19:30 01/23/25 20:15 01/23/25 20:15 01/23/25 20:11 01/23/25 20:15
Physical Exam
General: Comfortable and Conversant
HEENT: Anicteric and Moist mucous membranes
Respiratory: Clear and Non Labored Respirations
Cardiac: S1/S2 and Regular Rhythm
GI: Soft, Non Tender and Non Distended
Rectal: Deferred by Provider
Musculoskeletal: No Clubbing and No Cyanosis
Skin: Warm and Dry; No Jaundice
Neuro: Awake, Alert and Nonfocal/grossly intact
Psych: Calm
Laboratory Results
-
01/23/25 19:44
01/23/25 19:44
Laboratory Results
Total Bilirubin 0.5 mg/dl (0.2-1.3) 01/23/25 19:44
AST 21 U/L (14-36) 01/23/25 19:44
ALT 16 U/L (0-35) 01/23/25 19:44
Alkaline Phosphatase 129 U/L (38-126) H 01/23/25 19:44
Lipase 68 U/L (23-300) 01/23/25 19:44
Abdomen Ultrasound:
Unremarkable gallbladder. No gallstones identified. No sonographic evidence of acute cholecystitis.
Dilated common bile duct, 11 mm. Advise correlation with liver function tests. Pancreatic duct measuring approximately 2 mm. Consider further evaluation/follow-up MRI with MRCP.
Incidental renal cysts.
Abdomen/Pelvis CT Scan:
1. Dilated common bile duct measuring up to 1.0 cm. Questionable soft tissue density within the distal common bile duct. Recommend further evaluation with dedicated MRI/MRCP abdomen without and with gadolinium contrast.
2. Indeterminate 1.3 cm left renal lesion. Recommend attention on follow-up MRI.
Data Reviewed
-
CT Scan: Report Reviewed by me
Ultrasound: Report Reviewed by me
Lab Data: Labs Reviewed by me
Old Records: Requested and Reviewed
Impression/Plan
-
Abdominal Pain with Common Bile Duct Dilation
-No cholelithiasis noted on imaging studies and LFTs are within normal range
-Check MRI/MRCP
-Recheck LFTs in AM
-Consult GI
Essential Hypertension
-Continue atenolol and losartan with hold parameters
-Hold HCTZ
Hyperlipidemia
-Continue atorvastatin
CKD Stage IIIA
-Creatinine at baseline
Anxiety
-Continue lorazepam prn as prior to admission
GERD
-Continue Protonix
DVT proph: SC Heparin
Code Status: Full Code
--- NOTE | 2025-01-23 21:35 | W.PN.UPDATE ---
Update Note
Progress Note Update
Patient seen in conjunction with BALBINA. I agree the findings and ago. I concur with assessment plan unless stated otherwise.
Briefly, this is a 66-year-old female with past medical history significant for hypertension, hyperlipidemia, history of choledocholithiasis status post ERCP 5 years ago who presents to the emergency department with abdominal pain that started
approximately 3 weeks ago.
She reports heavy feeling and burning ache in the right upper quadrant extending to her back and progressively worsening. She rates this at a 7 out of 10. No associated nausea or vomiting fevers or chills. No associated jaundice or changes in
urine or stool color. Says feel similar to prior episode of choledocholithiasis 5 years ago but that was associated with nausea/vomiting and required ERCP with stone removal. On follow up a few months later the stent had dislodged but patient has
remained symptom free until a few weeks ago. She reports poor po due to pain and reduced appetite, 7Ib weight loss, light colored stool.
In the emergency department she was afebrile, blood pressure was 120/80 with a pulse of 64 satting at 9% on room air.
There is no leukocytosis hemogram platelets were normal. Electrolytes were normal. BUN/creatinine were normal. She had an ultrasound on 01 21 showing a normal gallbladder without acute cholecystitis and 1 cm common bile duct dilation. No stone
seen within the common bile duct. Today a CT scan of the abdomen pelvis reveals a normal gallbladder, normal pancreas, distal common bile duct soft tissue density with, bile duct dilation of 1 cm. There is in addition normal left kidney a 1 cm
renal lesion.
Assessment and plan
Progressive abdominal pain with finding of a distal CBD soft tissue density and persistent common bile duct dilation. Concerning for possible common bile duct mass/polyp or stricture and less likely choledocholithiasis. No stones in bile ducts or
gall bladder. No gall bladder anomaly. Minimally tender, no evidence of acute cholangitis.
- Admit to MedSurg
- Clear liquid diet as tolerated
- PPI daily
- Pain control
- Trend LFTs although unexpected change
- MRCP/MRI
- GI consultation
- Continue her usual medications for now
DVT prophylaxis�Lovenox subcu
CODE STATUS�full code
[2025-01-23] MEDS: ROCEPHIN 1000 MG IV (22:08)
[2025-01-23] MEDS: MORPHINE SULFATE 2 MG IV (23:17)
[2025-01-24 05:54] LABS: Hematocrit 35.3 % (37.0-47.0); Hemoglobin 11.9 g/dL (12.0-16.0); Mean Corp Hgb Conc. 33.7 g/dL (33.0-37.0); Mean Corpuscular Hgb 30.1 pg (27.0-31.0); Mean Corpuscular Volume 89.4 fL (81.0-99.0); Mean Platelet Volume 10.7 fL (7.4-10.4); Platelet Count 286 10^3/uL (130-400); Red Blood Cell Count 3.95 10^6/uL (4.20-5.40); Red Cell Dist. Width 13.4 % (11.5-14.5); White Blood Cell Count 8.7 10^3/uL (4.8-10.8)
[2025-01-24 06:00] VITALS: BMI 31.5
[2025-01-24 06:26] LABS: ALT (SGPT) 14 U/L (0-35); AST (SGOT) 20 U/L (14-36); Albumin 3.5 g/dl (3.5-5.0); Alkaline Phosphatase 127 U/L (38-126); Blood Urea Nitrogen 17 mg/dl (7-17); Calcium 9.1 mg/dl (8.4-10.2); Carbon Dioxide 26 mmol/L (22-30); Chloride 109 mmol/L (98-107); Estimated Creatinine Clearance 58 ml/min; Glucose 91 mg/dl (70-99); Sodium 139 mmol/L (135-145); Total Bilirubin 0.7 mg/dl (0.2-1.3); eGFR > 60.00
[2025-01-24] MEDS: MORPHINE SULFATE 1 MG IV ×2 (06:43→14:59)
[2025-01-24 07:15] VITALS: BP 140/84
[2025-01-24] MEDS: HEPARIN 5000 UNITS SC (08:19)
[2025-01-24] MEDS: COZAAR 50 MG PO (08:20)
[2025-01-24] MEDS: LIPITOR 20 MG PO (08:20)
[2025-01-24] MEDS: PROTONIX 40 MG PO (08:20)
--- NOTE | 2025-01-24 08:21 | CON.GI ---
Consultation
-
Date/Time Consultation Requested: 01/23/25 6pm
Date/Time Consultation Performed: 01/24/25 at 7am
Requesting Provider: Sal
Performing Provider: Liset
Reason for Consultation: abd pain
Medical History
Chief Complaint / HPI
Chief Complaint: abd pain
History of Present Illness:
This patient is a 64-year-old woman with a history of hypertension and hyperlipidemia. She also has GERD and a history of choledocholithiasis. She states that back in 2019 she had biliary colic and had a stone removed via ERCP. Interestingly she
never had her gallbladder removed and was never told to do so. At the time she had a stent placed which was then dislodged on follow-up. Since that time she has been doing well until several months ago. She did have an episode of falling on her
right side after having leg swelling from her antihypertensive. She did have an ER visit and was sent home. She also started having intermittent right upper quadrant pain which she states is distinctly different and more similar to her biliary
symptoms back in 2019. It does not come in any particular time and is not necessarily related to food. She did have a extreme event I did come to the emergency room. She does have a history of gastritis and follows with a GI outside. Her last
EGD was 2 years ago. She also has a history of multiple colonoscopies for her family history of colon cancer. She states they have been unremarkable. In the emergency room she did have a CAT scan that did not show any particular stones but did
show a dilated common bile duct.
Past Medical History
Past Medical History: HTN, Hypercholesterolemia and Other (Anxiety, GERD, Chronic kidney disease)
Past Surgical History: Other (Total knee replacement, endometrial ablation)
Social History
Tobacco: Non-Smoker
Alcohol: None
Family History
Family History: Cancer (Colon cancer in father)
Allergies / Home Medications
Allergy/AdvReac Type Severity Reaction Status Date / Time
No Known Allergies Allergy Verified 01/23/25 18:56
�Medication �Instructions �Recorded
atenolol 50 mg tablet 50 mg PO BID Blood pressure 03/14/17
sumatriptan succinate 50 mg tablet 50 mg PO DAILYPRN PRN migraine 09/06/18
omeprazole 20 mg tablet,delayed 20 mg PO DAILY Gastrointestinal 12/13/20
release issue
lorazepam 0.5 mg tablet 0.5 mg PO BIDPRN PRN anxiety 09/08/22
polyethylene glycol 3350 17 gram 17 g PO DAILYPRN PRN Constipation 09/08/22
oral powder packet #0 ea
atorvastatin 20 mg tablet 20 mg PO DAILY High Cholesterol 06/19/24
cyanocobalamin (vitamin B-12) 1,000 mcg PO DAILY 30 days #30 tabs 08/26/24
1,000 mcg tablet
hydrochlorothiazide 12.5 mg tablet 12.5 mg PO DAILY Fluid 01/23/25
Retention/Swelling
losartan 50 mg tablet 50 mg PO DAILY Blood Pressure 01/23/25
Review of Systems
-
All other systems: A 12 pt ROS was Negative except as stated above in HPI
Vital Signs
Temp Pulse Resp BP Pulse Ox
97.9 F 63 16 182/96 98
01/23/25 23:55 01/23/25 23:55 01/23/25 23:55 01/23/25 23:55 01/23/25 23:55
Physical Exam
Exam
General: No Apparent Distress
HEENT: Anicteric
Cardiac: S1/S2
GI: Soft and Tender (currently non tender but asking for pain meds still)
Skin: Warm
Neuro: Awake
Psych: Calm
Results
WBC 8.7 10^3/uL (4.8-10.8) 01/24/25 05:31
Hgb 11.9 g/dL (12.0-16.0) L 01/24/25 05:31
Hct 35.3 % (37.0-47.0) L 01/24/25 05:31
MCV 89.4 fL (81.0-99.0) 01/24/25 05:31
Plt Count 286 10^3/uL (130-400) 01/24/25 05:31
Absolute Neuts (auto) 6.5 10^3/uL (1.4-6.5) 01/23/25 19:44
Sodium 139 mmol/L (135-145) 01/24/25 05:31
Potassium 4.0 mmol/L (3.5-5.1) 01/24/25 05:31
Chloride 109 mmol/L (98-107) H 01/24/25 05:31
Carbon Dioxide 26 mmol/L (22-30) 01/24/25 05:31
BUN 17 mg/dl (7-17) 01/24/25 05:31
Creatinine 1.0 mg/dL (0.6-1.0) 01/24/25 05:31
Calcium 9.1 mg/dl (8.4-10.2) 01/24/25 05:31
Total Bilirubin 0.7 mg/dl (0.2-1.3) 01/24/25 05:31
AST 20 U/L (14-36) 01/24/25 05:31
ALT 14 U/L (0-35) 01/24/25 05:31
Alkaline Phosphatase 127 U/L (38-126) H 01/24/25 05:31
Lipase 68 U/L (23-300) 01/23/25 19:44
Assessment / Plan
-
This patient is a 64-year-old woman with a history of choledocholithiasis back in 2019, she also had a fall on her right side back in September. She does have a history of gastritis and a family history of colon cancer. She does follow with an
outside GI at [facility]. She came in with right upper quadrant pain that was severe and does have a mildly dilated common bile duct without evidence of stones on CAT scan. Her liver tests are essentially normal except for barely elevated alkaline
phosphatase. For now would do the following:
1. mri/mrcp
2. if abnormal will need ercp
3. PPI
4. follow lfts
5. if pain continues consider egd
6. f/u with primary dr for chronic gi issues
Data Reviewed
-
Radiology: Report Reviewed by me
-
-
Thank you for consultation and allowing me to participate in the patient's care. Please call the cushion cover inspector GI physician during the after hours with any questions or concerns.
[2025-01-24] MEDS: ATIVAN 0.5 MG PO (08:30)
--- NOTE | 2025-01-24 12:52 | W.PN.HOSP.TC ---
Today's Communication/Plan
-
See plan
Assessment / Plan
Assessment / Plan
Impression:
Persistent right upper quadrant pain with radiation to the back pain
Prior history of choledocholithiasis requiring ERCP and stent placement 5 years prior to this admission.
Recent fall with right 10th rib fracture.
Other conditions
GERD/gastritis
Essential hypertension
Dyslipidemia
BMI 31
Plan
Persistent right upper quadrant pain with radiation to the back.
Exam with mild right upper quadrant tenderness. Interestingly enough reproducible subscapular tenderness.
She has history of choledocholithiasis requiring ERCP and stent placement. Stent according to patient later migrated. Patient had never cholecystectomy performed post ERCP.
Ultrasound with dilated common bile duct.
Normal liver function test and lipase
Normal white count
GI input noted
MRI MRCP
Follow LFT
Continue PPI
If unremarkable MRI/MRCP findings, consider upper endoscopy
Anticipated Discharge: 24 - 48 hours
Subjective/Interval History
-
Date of Service: January 24, 2025
Objective Data
-
Labs:
Laboratory Results
01/24/25
05:31
WBC 8.7
Hgb 11.9 L
Hct 35.3 L
Plt Count 286
Sodium 139
Potassium 4.0
Chloride 109 H
Carbon Dioxide 26
BUN 17
Creatinine 1.0
Glucose 91
Calcium 9.1
Total Bilirubin 0.7
AST 20
ALT 14
Alkaline Phosphatase 127 H
Vital Signs:
Vital Signs
Temp Pulse Resp BP Pulse Ox
97.8 F 59 18 140/84 98
01/24/25 07:15 01/24/25 08:20 01/24/25 07:15 01/24/25 08:20 01/24/25 07:15
Physical Exam
-
General: Well Developed and No Apparent Distress
HEENT: Normocephalic, Atraumatic and Moist Mucous Membranes
Respiratory: Clear to Auscultation
Cardiac: Regular Rhythm and S1/S2; Negative Murmur, Rub or Gallop
GI: Soft, Nontender, Nondistended and Normal Bowel Sounds; Negative Organomegaly
Rectal: Deferred by Provider
Musculoskeletal: No Clubbing, No Cyanosis and No Edema
Skin: Negative Rash
Neuro: Nonfocal/Grossly Intact
--- NOTE | 2025-01-24 15:33 | CM ---
CM met with pt bedside
Pt resides alone on a 2nd floor condo, 12 steps to enter
Her adult son has ASD and is available for occasional support as needed
Pt is indep with her ADLs, denies use of DMEs
Has a SPC from prior knee surgery
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
Part D plan through [employer]
PCP- Juan Price
Rx- [facility]
Discharge Disposition- anticipate home no needs
[2025-01-24 15:42] VITALS: BP 136/87
--- NOTE | 2025-01-24 16:31 | W.PN.UPDATE ---
Update Note
Progress Note Update
Discussed with Dr. Hernandez and he reviewed MRI and labs. No need for inpatient EUS. Will order AMA to r/o PBC with chronically elevated Alk Phos since 2019. Outpatient follow up appt made with Dr. Hernandez for 03/07/25 at 1 pm to discuss outpatient EUS.
Discussed with Dr. Huang, Dr. Hutchins and RN.
--- NOTE | 2025-01-24 16:45 | W.DS.TRANS ---
DC Summary - [employer]
-
Discharge Instructions:
Discharge Diagnosis/Procedures Abdominal pain.
Chronic CBD dilatation
Diet Low Fat
Instructions:
Stand-Alone Forms:
Changes to Home Medications: No
Discharge Medications:
DC Medications w/original date entered in [employer]
atenolol 50 mg tablet 50 mg PO BID Blood pressure 03/14/17
sumatriptan succinate 50 mg tablet 50 mg PO DAILYPRN PRN migraine 09/06/18
omeprazole 20 mg tablet,delayed release 20 mg PO DAILY Gastrointestinal issue 12/13/20
lorazepam 0.5 mg tablet 0.5 mg PO BIDPRN PRN anxiety 09/08/22
polyethylene glycol 3350 17 gram oral powder packet 17 g PO DAILYPRN PRN Constipation #0 ea 09/08/22
atorvastatin 20 mg tablet 20 mg PO DAILY High Cholesterol 06/19/24
cyanocobalamin (vitamin B-12) 1,000 mcg tablet 1,000 mcg PO DAILY 30 days #30 tabs 08/26/24
hydrochlorothiazide 12.5 mg tablet 12.5 mg PO DAILY Fluid Retention/Swelling 01/23/25
losartan 50 mg tablet 50 mg PO DAILY Blood Pressure 01/23/25
Home Medication Changes
Pending Results: No
--- NOTE | 2025-01-24 17:59 | PTCARENOTE ---
Patient discharged home. IV removed by this RN, vitals taken by tech stable. Patient dressed and gathered belongings in room independently. This RN reviewed discharge instructions with patient who verbalized understanding. Patient being transported
home by son, taken down to son's car at main lobby via staff escort and wheelchair.
== END 2025-01-24 18:21 | disposition home or self-care (01) | DRG 446 ==
LOC: 2 NORTH 22:00
PROVIDERS: Nurse Practitioner; Physician Assistant; Physician Assistant Medical; ADMITTING PHYSICIAN Internal Medicine; ATTENDING PHYSICIAN Internal Medicine; CONSULT PHYSICIAN Internal Medicine; EMERGENCY PHYSICIAN Emergency Medicine; FAMILY PHYSICIAN Family Medicine
DX: K83.8 Other specified diseases of biliary tract (principal); K21.9 Gastro-esophageal reflux disease without esophagitis; K29.70 Gastritis, unspecified, without bleeding; N18.31 Chronic kidney disease, stage 3a; I12.9 Hypertensive chronic kidney disease with stage 1 through stage 4 chronic kidney disease, or unspecified chronic kidney disease; E78.00 Pure hypercholesterolemia, unspecified; F41.9 Anxiety disorder, unspecified; Z96.651 Presence of right artificial knee joint; Z79.899 Other long term (current) drug therapy; Z80.0 Family history of malignant neoplasm of digestive organs
CPT/HCPCS: 74177; 74183; 76700; 80053; 83690; 85025; 85027; 86381; 96361; 96374; 99285; A9575; Q9967

== ENCOUNTER 2025-03-31 06:28 | Day surgery (SDC) | payer MEDICARE, SELFPAY ==
[2025-03-31 10:50] VITALS: BMI 31.8
[2025-03-31 10:51] VITALS: BMI 31.8
[2025-03-31 10:52] VITALS: BP 148/80
[2025-03-31 13:34] VITALS: BP 96/48
== END 2025-03-31 14:24 | disposition home or self-care (01) ==
LOC: SDS 06:28
PROVIDERS: ATTENDING PHYSICIAN Internal Medicine Gastroenterology
DX: K57.10 Diverticulosis of small intestine without perforation or abscess without bleeding (principal); K83.8 Other specified diseases of biliary tract; K31.89 Other diseases of stomach and duodenum
CPT/HCPCS: 43239; 88305; 88342

== ENCOUNTER 2025-04-14 07:09 | Outpatient (RCR) | payer MEDICARE, SELFPAY | END 2025-04-14 23:59 | disposition home or self-care (01) | LOC: RPT 07:09 | PROVIDERS: ATTENDING PHYSICIAN Family Medicine | DX: H81.11 Benign paroxysmal vertigo, right ear (principal); Z73.6 Limitation of activities due to disability | CPT/HCPCS: 97112; 97161 ==

== ENCOUNTER → 2025-05-03 10:29 | Outpatient (REF) | payer MEDICARE, SELFPAY | LOC: SDSPAT 10:29 | PROVIDERS: ATTENDING PHYSICIAN Surgery; FAMILY PHYSICIAN Family Medicine | DX: K80.50 Calculus of bile duct without cholangitis or cholecystitis without obstruction (principal); K80.44 Calculus of bile duct with chronic cholecystitis without obstruction; Z01.818 Encounter for other preprocedural examination | CPT/HCPCS: 36415; 93005 ==

== ENCOUNTER 2025-05-17 06:21 | Day surgery (SDC) | payer MEDICARE, SELFPAY ==
[2025-05-03 13:54] VITALS: BMI 32.5
[2025-05-17] VITALS (10 sets, daily range): BP systolic 100–142; BP diastolic 49–93; BMI 32.5
--- NOTE | 2025-05-17 10:48 | W.SUR.PREOP ---
Pre-Operative Surgical Note
-
I have examined this patient prior to the performance of the scheduled procedure.
The patient's condition is unchanged from the time of the current History and
Physical and the patient is able to undergo the scheduled procedure.
--- NOTE | 2025-05-17 10:48 | HP.FOC2 ---
Focused History & Physical
Chief Complaint
HPI:
Chief Complaint: Choledocholithiasis
HPI / Indication for Planned Procedure: This is a 64-year-old female with a history of choledocholithiasis status post ERCP here for laparoscopic cholecystectomy.
Relevant Past Medical History: Negative
Relevant Social History: Negative
Relevant Family History: Negative
Relevant Past Surgical History: Negative
Review of Systems
Review of Pertinent Systems: All Systems Negative
Medication
See Medication form for detailed medications: Yes
Medication List (including Herbals & OTC):
atenolol 50 mg tablet 50 mg PO BID Blood pressure 03/14/17
sumatriptan succinate 50 mg tablet 50 mg PO DAILYPRN PRN migraine 09/06/18
omeprazole 20 mg tablet,delayed release 20 mg PO DAILY Gastrointestinal issue 12/13/20
lorazepam 0.5 mg tablet 0.5 mg PO BID anxiety 09/08/22
cyanocobalamin (vitamin B-12) 1,000 mcg tablet 1,000 mcg PO DAILY 30 days #30 tabs 08/26/24
hydrochlorothiazide 12.5 mg tablet 12.5 mg PO DAILY Fluid Retention/Swelling 01/23/25
losartan 50 mg tablet 50 mg PO DAILY Blood Pressure 01/23/25
Medical Marijuana 1 dose inhalation PRN PRN Anxiety 05/11/25
Slow Fe 1 tab PO Q72H 05/11/25
atorvastatin 40 mg tablet 40 mg PO HS 05/11/25
loratadine 10 mg tablet (Claritin) 10 mg PO DAILY PRN Rhinitis 05/11/25
losartan 25 mg tablet 25 mg PO HS 05/11/25
Medications Reviewed: Yes
Allergies and Reactions
Patient has Allergies: Yes
Noted Allergies and Reactions:
Allergy/AdvReac Type Severity Reaction Status Date / Time
amlodipine Allergy Leg Verified 05/11/25 08:26
Swelling
Pertinent Physical Exam
All Other Systems: Negative
Head/Neck: Normal
Diagnosis / Assessment
This is a 64-year-old female with a history of choledocholithiasis status post ERCP here for laparoscopic cholecystectomy.
Plan / Procedure
This is a 64-year-old female with a history of choledocholithiasis status post ERCP here for laparoscopic cholecystectomy.
Anesthesia/Sedation to be done by Anesthesia Provider: Yes
[2025-05-17] MEDS: TYLENOL 1000 MG PO (11:05)
[2025-05-17] MEDS: NORMOSOL-R/PLASMALYTE-A 1000 IV (11:06)
--- NOTE | 2025-05-17 12:16 | W.IMMPOSTOP ---
Surgical Immed Post Op Note
-
Primary Surgeon: Trino Hayes MD
Assisting Surgeon: None
Pre-op Diagnosis: Choledocholithiasis
Post-op Diagnosis: Same
Procedure Performed: Laparoscopic cholecystectomy with cholangiogram
Anesthesia Type: General
Specimen / Cultures: Gallbladder and contents
Estimated Blood Loss: 3 cc
Complications: None
Operative Findings: Fairly normal-appearing gallbladder, some inflammation noted in the cystic triangle. Critical view of safety obtained prior to cholangiogram which demonstrated a dilated common bile duct but otherwise normal biliary anatomy and
no filling defects with brisk flow of contrast into the duodenum. The duct was ligated with a clip followed by 0 PDS Endoloop. There was minimal spillage of bile from our ductotomy but no stones.
POST OP PLAN:
Labs: Exposure labs. Verbal consent obtained from patient's son Hugh.
Will DC today
--- NOTE | 2025-05-17 12:17 | OR.RPT ---
Operative Report
Operative Report
Patient Name: Vivian Pearson
: 1960
Date of Operation: 05/17/2025
Preoperative Diagnosis: Choledocholithiasis
Postoperative Diagnosis: Same
Procedure(s):
Laparoscopic Cholecystectomy with Cholangiogram
Surgeon(s):
Dr. Hayes
Chair Inspector And Leveler(s):
EUGENE Zamorano
Anesthesia: General
Estimated Blood Loss: 3 cc
Urine Output: None
Drains/Lines/Implants: None
Specimens:
1. Gallbladder and contents
HPI/Surgical Indications:
This is a 64-year-old female with a history of choledocholithiasis status post ERCP. She was lost to follow-up but never underwent an interval cholecystectomy. Recently she had a recurrence bout of choledocholithiasis that cleared spontaneously.
After discussion of risk benefits and alternatives the patient was counseled on interval cholecystectomy and the patient agreed to move forward with minimally invasive removal of her gallbladder.
Operative Findings: Fairly normal-appearing gallbladder, some inflammation noted in the cystic triangle. Critical view of safety obtained prior to cholangiogram which demonstrated a dilated common bile duct but otherwise normal biliary anatomy and
no filling defects with brisk flow of contrast into the duodenum. The duct was ligated with a clip followed by 0 PDS Endoloop. There was minimal spillage of bile from our ductotomy but no stones.
Procedure Description:
The patient was brought to the Operating Room and placed in the supine position with one arm tucked. Following uneventful induction of general endotracheal anesthesia, an orogastric tube was placed. The abdomen was prepped and draped in the usual
sterile fashion. A timeout was performed confirming the procedure, consent, and that IV antibiotics were infused and sequential compression devices were confirmed to be on. The abdomen was entered using a left subcostal Veress technique which
required a single pass followed by a 5 mm right upper quadrant Optiview trocar. Pneumoperitoneum to 15 mmHg pressure was obtained without difficulty and we confirmed that no injury had occurred during our entry. The patient was positioned in
reverse Trendelenberg and rotated with the right side up slightly. Two 5 mm trocars were then placed along the right subcostal margin, followed by a 12 mm port in the epigastrium. A locking grasping forceps was placed on the fundus of the
gallbladder where it was then retracted cephalad and to the right. Using appropriate grasping instruments, the peritoneum overlying the triangle of Calot was incised and extended superiorly on both the anterior and posterior gallbladder berry. The
infundibulum was dissected off the cystic plate. The cystic triangle was dissected until a critical view of safety was achieved. The cystic artery was medialized, dissected and controlled with 2 proximal clips and 1 distal. The cystic
duct/gallbladder junction in turn was identified, dissected circumferentially and a clip was placed. A ductotomy was made and a cholangiocatheter on an Wright clamp was inserted into the cystic duct. A C-arm was draped and brought into the field. An
intra-operative cholangiogram was performed and was noted to have:
No filling defects in the biliary tree
A significantly dilated CBD
Brisk flow of contrast into the duodenum
Normal biliary anatomy
The catheter was then removed and the cystic duct was controlled with a clip followed by 0 PDS Endoloop. After ensuring both the artery and duct were divided, the gallbladder was freed from the liver using electrocautery. There was some spillage
of bile from her duct ottoman, but no spillage of stones. The gallbladder bed was inspected and excellent hemostasis was obtained. The gallbladder was extracted through the 12 mm trocar site using an endocatch bag. The abdomen was again irrigated
and excellent hemostasis was assured. All remaining trocars were then removed and the pneumoperitoneum was evacuated. The 12 mm trocar site was closed using 0 PDS suture. All trocar sites were closed at the skin level using 4-0 Monocryl followed
by Dermabond. Overall, the patient tolerated the procedure well and was taken to the Recovery Room postoperatively in stable condition.
Vikram was the attending physician and performed the procedure with assistance of the PA above. The assistance of EUGENE Zamorano was required due to the complexity of the procedure. During the procedure Cha assisted with port placement, tissue
retraction, resection, and closure of the wound. I was present for all portions of the case, excluding skin closure.
Trino Hayes MD
[2025-05-17] MEDS: DILAUDID 0.25 MG IV ×2 (12:53→13:07)
[2025-05-17 14:33] LABS: Hepatitis B Surface Antigen Negative (Negative)
[2025-05-17 14:50] LABS: Hepatitis C Antibody Negative (Negative)
== END 2025-05-17 14:45 | disposition home or self-care (01) ==
LOC: SDS 06:21
PROVIDERS: ATTENDING PHYSICIAN Surgery
DX: K80.44 Calculus of bile duct with chronic cholecystitis without obstruction (principal)
CPT/HCPCS: 47563; 74300; 76000; 86706; 86803; 87340; 87389; 88304; A4300

== ENCOUNTER 2025-05-27 23:30 | Inpatient (IN) | payer MEDICARE, SELFPAY ==
[2025-05-27 18:16] VITALS: BP 160/94
[2025-05-27 18:18] VITALS: BMI 30.9
[2025-05-27 18:50] LABS: Hematocrit 39.7 % (37.0-47.0); Hemoglobin 13.5 g/dL (12.0-16.0); Mean Corp Hgb Conc. 34.0 g/dL (33.0-37.0); Mean Corpuscular Volume 86.3 fL (81.0-99.0); Nucleated Red Blood Cells % 0 %; Platelet Count 337 10^3/uL (130-400); Red Cell Dist. Width 12.8 % (11.5-14.5)
[2025-05-27 19:02] LABS: ALT (SGPT) 16 U/L (0-35); AST (SGOT) 28 U/L (14-36); Albumin 4.5 g/dl (3.5-5.0); Alkaline Phosphatase 150 U/L (38-126); Blood Urea Nitrogen 14 mg/dl (7-17); Calcium 10.1 mg/dl (8.4-10.2); Carbon Dioxide 28 mmol/L (22-30); Chloride 103 mmol/L (98-107); Estimated Creatinine Clearance 52 ml/min; Glucose 109 mg/dl (70-99); Potassium 3.2 mmol/L (3.5-5.1); Sodium 139 mmol/L (135-145); Total Protein 7.4 g/dl (6.3-8.2); eGFR 55.42
--- NOTE | 2025-05-27 19:11 | ED.GENMED ---
History of Present Illness
General
Chief Complaint: Breathing Problem
Time Seen by Provider: 05/27/25 18:51
History of Present Illness
History of Present Illness:
64-year-old female presents the emergency department for evaluation of shortness of breath that has been ongoing for the past several days. She is 10 days status post cholecystectomy performed here. Initially symptoms were exertional and now occur
even at rest. No chest pain or calf swelling. No hemoptysis. No fevers or chills. Denies any abdominal pain
Past History
Past History
ED Past Medical History: HTN and Hypercholesterolemia
ED Past Surgical History: Orthopedic
Social History
Tobacco: Non-smoker
Alcohol: None
Drug: None
Personal: Single
Living: with family
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
Family History
Family History: Other (Mother with syncope in her 60s)
Review of Systems
Review of Systems
Allergies reviewed?: Yes
All Other Systems: ROS reviewed and negative except as documented in HPI and ROS
Phy Exam
Physical Exam
Physical Exam:
GEN: Well appearing, NAD, WDWN
HEENT: Oral mucosa moist, no scleral icterus
Cardiac: Regular rate, and rhythm, no murmur
Lung: No respiratory distress, no tachypnea, lungs clear to auscultation bilaterally
MSK: No gross deformity or injuries
Skin: Good color, no pallor or jaundice, no rashes
Neuro: AO x3, moves all extremities freely
Psych: Calm, cooperative
Scores
Heart Failure Risk
Heart Failure Risk Score: Not Applicable
Course
Orders/Labs/Results
Orders:
Orders
05/27/25 18:30
NT-proBNP Urgent
Troponin I Urgent
05/27/25 18:37
Chest [CR Chest - 2 Views ] Urgent
Comment:
Reason For Exam: shortness of breath
05/27/25 18:38
Complete Blood Count/With Diff Urgent
Comprehensive Metabolic Panel Urgent
05/27/25 19:11
Electrocardiogram (*1) Urgent
Reason for Study: Shortness of Breath
CT Chest PE Study Urgent
Comment:
Reason For Exam: SOB, recent surgery
EKG- Treatment ONCE
05/27/25 21:38
Troponin I Urgent
05/27/25 21:56
Atenolol [Tenormin] 50 mg PO NOW STA
Lorazepam [Ativan] 0.5 mg PO NOW STA
05/27/25 22:22
Losartan [Cozaar] 25 mg PO NOW STA
05/27/25 22:30
Electrocardiogram (*1) Urgent
Reason for Study: Shortness of Breath
EKG- Treatment ONCE
05/27/25 22:50
Aspirin Chewable [Low Strength Aspirin] 324 mg PO NOW STA
05/27/25 22:57
Potassium Chloride 10% Elixir [KCl Elixir] 40 meq PO NOW STA
05/27/25 23:29
Admit/Transfer Patient As Directed
Co-Sign Provider:
Level of Care: Inpatient admission
Assign to:: IVU
Physician / Group: Willy
Diagnosis: NSTEMI
Reason for Hospitalization: heparin drip, cardiology consult
Expected length of stay greater than two midnights?: Yes
ELOS- Estimated Length of Stay in days: 3
I certify the patient meets the requirements for IP care: Yes
PRN Pain Medication Management As Directed
May give lesser potent ordered pain med per pt: Yes
preference::
Protocol:: Medication orders for pain may be administered in a
manner that supports deferring to patient preference
when the pt is:
- Requesting an ordered lesser potent pain medication.
Least to most potent pain medications are defined
as: acetaminophen < NSAID < tramadol < opioids
(morphine, oxycodone, hydromorphone).
- Requesting a lesser dose of the same medication IF
ORDERED.
- Requesting a less intrusive route of administration
if both routes are prescribed by the provider (PO <
IV).
05/28/25 00:46
Acetaminophen [Tylenol] 650 mg PO Q6HPRN PRN mild pain
05/28/25 08:00
Atenolol [Tenormin] 50 mg PO BID
Lorazepam [Ativan] 0.5 mg PO BID
Losartan [Cozaar] 50 mg PO DAILY
Pantoprazole [Protonix] 40 mg PO DAILY
05/28/25 22:00
Atorvastatin [Lipitor] 40 mg PO HS
Losartan [Cozaar] 25 mg PO HS
Abnormal Lab Results
05/27/25 05/27/25
18:38 21:38
MPV 10.6 H fL
(7.4-10.4)
Potassium 3.2 L mmol/L
(3.5-5.1)
Creatinine 1.1 H mg/dL
(0.6-1.0)
Glucose 109 H mg/dl
(70-99)
Alkaline Phosphatase 150 H U/L
(38-126)
Troponin I 0.066 H* D ng/ml
05/27/25 18:38
05/27/25 18:38
Vital Signs
Initial and Last Documented VS:
Initial Vital Signs
Temp Pulse Resp BP Pulse Ox
97.7 F 115 19 160/94 99
05/27/25 18:16 05/27/25 18:16 05/27/25 18:16 05/27/25 18:16 05/27/25 18:16
Last Documented Vital Signs
Temp Pulse Resp BP Pulse Ox
98.5 F 69 20 155/91 99
05/28/25 00:44 05/28/25 00:15 05/28/25 00:44 05/27/25 23:00 05/28/25 00:44
MDM/Problems Addressed
MDM/Problems Addressed:
PE study was obtained due to the patient's lack of adventitious lung sounds and recent surgical procedure, this was fortunately negative. Due to the initially detectable troponin levels a repeat was obtained which showed significant uptrending,
this may be correlating with her shortness of breath although she has no chest pain or ischemic changes on EKG will admit to the hospitalist service for further evaluation and management
*Pulse Oximetry
SaO2: 98
Oxygen Mode of Delivery: Room air
Patient hypoxic: no
*Critical Care Note
Total Time (30-74mins, 75-104mins- exclusive of procedures): Not Applicable
ED Attending Note
-
Portions of this chart may have been created with voice recognition software.� Occasional wrong word or��sound alike� substitutions may have occurred due to the inherent limitations of voice recognition software.
Discharge Plan
Departure
Patient Disposition: Admit
Date of Disposition: 05/27/25
Time of Disposition: 22:51
Admit to: Telemetry
Presentation/result/management discussed w/ accepting MD/DO: Hospitalist
Discharge Problem:
Elevated troponin, Shortness of breath
Interventions
Interventions:
*Risk Screen - Suicide Last Done: 05/27/25 18:05
*General Assessment Last Done: 05/27/25 18:05
*Neglect/Abuse Screening Last Done: 05/27/25 18:05
*ED- Fall Risk Assessment Last Done: 05/27/25 18:19
*ED COVID-19 Vaccine History Last Done: 05/27/25 18:18
*ED Influenza Vaccine History Last Done: 05/27/25 18:18
*Nursing Disposition Last Done: 05/28/25 00:28
ED- Cardiac Assessment Last Done: 05/27/25 18:24
ED- Pulmonary Assessment Last Done: 05/27/25 18:24
Discharge Date and Time
Discharge Date/Time: 05/28/25 00:37
[2025-05-27 19:34] VITALS: BP 138/77
[2025-05-27 20:00] VITALS: BP 127/76
[2025-05-27 20:05] LABS: Troponin I 0.029 ng/ml
[2025-05-27 21:34] VITALS: BP 151/93
[2025-05-27 22:00] VITALS: BP 157/134
[2025-05-27] MEDS: ATIVAN 0.5 MG PO (22:22)
[2025-05-27] MEDS: TENORMIN 50 MG PO (22:22)
[2025-05-27 22:26] LABS: Troponin I 0.066 ng/ml
--- NOTE | 2025-05-27 22:55 | HPS.HSE ---
Family Physician
-
Family Physician: Sebas Price, DO
Chief Complaint
-
Shortness of Breath
History of Present Illness
Patient is a 64 y/o female past medical history of hypertension, hyperlipidemia, CKD, and Anxiety who presents with shortness of breath. Patient underwent cholecystectomy on May 17. She reports initially recovering well, until about 5 days
ago when she started developing shortness of breath. She notes initially shortness of breath was only with exertion, and would resolved with rest but over the last several days symptoms have worsened. She reports it is taking less activity to
trigger symptoms, and today noted shortness of breath even at rest prompting her to come to the emergency department for evaluation. She denies any chest pain.
Medical History
Past Medical History
Past Medical History: Reports Other
Additional Past Medical History:
Essential Hypertension
Hyperlipidemia
CKD Stage IIIA
Anxiety
GERD
Migraine Headache
Past Surgical History: Reports Other
Additional Past Surgical History:
Cholecystectomy
Right Total Knee Replacement
Bilateral Carpal Tunnel
Dental Implants
Bilateral Cataracts
Endometrial Ablation
Social History
Tobacco: Non-smoker
Alcohol: None
Drug: None
Personal: Single
Living: Alone
Employment: Employed (Works in registration in the ED)
Family History
Family History: Not pertinent
Allergies / Home Medications
Allergies reflects when Allergies were last updated in [employer].
Home Medications with original date entered in [employer]
Allergy/Medication List:
Allergies
Allergy/AdvReac Type Severity Reaction Status Date / Time
amlodipine Allergy Leg Verified 05/17/25 10:53
Swelling
Home Medications
atenolol 50 mg tablet 50 mg PO BID Blood pressure 03/14/17
sumatriptan succinate 50 mg tablet 50 mg PO DAILYPRN PRN migraine 09/06/18
omeprazole 20 mg tablet,delayed release 20 mg PO DAILY Gastrointestinal issue 12/13/20
lorazepam 0.5 mg tablet 0.5 mg PO BID anxiety 09/08/22
cyanocobalamin (vitamin B-12) 1,000 mcg tablet 1,000 mcg PO DAILY 30 days #30 tabs 08/26/24
hydrochlorothiazide 12.5 mg tablet 12.5 mg PO DAILY Fluid Retention/Swelling 01/23/25
losartan 50 mg tablet 50 mg PO DAILY Blood Pressure 01/23/25
Medical Marijuana 1 dose inhalation PRN PRN Anxiety 05/11/25
Slow Fe 1 tab PO Q72H 05/11/25
atorvastatin 40 mg tablet 40 mg PO HS 05/11/25
loratadine 10 mg tablet (Claritin) 10 mg PO DAILY PRN Rhinitis 05/11/25
losartan 25 mg tablet 25 mg PO HS 05/11/25
acetaminophen 325 mg tablet 650 mg (2 x 325 mg) PO Q6HPRN PRN mild pain #14 tabs 05/17/25
ibuprofen 600 mg tablet 600 mg PO Q6H PRN pain #14 tabs 05/17/25
Review of Systems
-
A 12 point ROS was completed and negative except as noted: Yes
Constitutional: Denies Fever or Chills
Respiratory: Reports Trouble Breathing; Denies Cough
Cardiac: Denies Chest Pain
Physical Exam
Vital Signs
Vital Signs
Temp Pulse Resp BP Pulse Ox
97.7 F 78 17 157/134 97
05/27/25 18:16 05/27/25 22:22 05/27/25 18:47 05/27/25 22:22 05/27/25 20:15
Physical Exam
General: Comfortable and Conversant
HEENT: Anicteric and Moist mucous membranes
Respiratory: Clear and Non Labored Respirations
Cardiac: S1/S2 and Regular Rhythm; No Murmur
GI: Soft, Non Tender and Other (Noted bruising following recent cholecystectomy)
Rectal: Deferred by Provider
Musculoskeletal: No Clubbing, No Cyanosis and No Edema
Skin: Warm and Dry
Neuro: Awake, Alert, Oriented and Nonfocal/grossly intact
Psych: Calm
Laboratory Results
-
05/27/25 18:38
05/27/25 18:38
Laboratory Results
Total Bilirubin 0.9 mg/dl (0.2-1.3) 05/27/25 18:38
AST 28 U/L (14-36) 05/27/25 18:38
ALT 16 U/L (0-35) 05/27/25 18:38
Alkaline Phosphatase 150 U/L (38-126) H 05/27/25 18:38
Troponin I 0.066 ng/ml H* D 05/27/25 21:38
Data Reviewed
-
Lab Data: Labs Reviewed by me
Old Records: Reviewed
Impression/Plan
-
Shortness of Breath with Elevated Troponin, clinical concern for NSTEMI
-Consult Cardiology
-Patient given aspirin load in ED - Continue Aspirin 81mg Daily
-Start heparin drip
-Continue to trend troponin
-Check Echocardiogram
Hypokalemia
-Give dose of potassium Now
-Hold HCTZ
-Recheck potassium in AM
Essential Hypertension
-Continue atenolol and losartan
-HCTZ on hold as above
Hyperlipidemia
-Continue atorvastatin
CKD Stage IIIA
-Creatinine at baseline
-Follows with Dr. Li as outpatient
Anxiety
-Continue lorazepam
GERD
-Continue Protonix
DVT proph: Heparin Drip
Code Status: Full Code
[2025-05-27] MEDS: COZAAR 25 MG PO (22:59)
[2025-05-27 23:00] VITALS: BP 155/91
[2025-05-27] MEDS: LOW STRENGTH ASPIRIN 324 MG PO (23:02)
--- NOTE | 2025-05-27 23:37 | W.PN.UPDATE ---
Update Note
Progress Note Update
Patient seen in conjunction with nurse mason, I agree with the findings and physical as well as the assessment and plan.
Briefly, patient is a 58-year-old female with past medical history significant for hypertension, hyperlipidemia, obesity, GERD who is recently status post cholecystectomy on May 17 presenting to the emergency department with dyspneic symptoms.
Patient reported that for about the last 5 days she has had increasing dyspnea on exertion. She initially was having did not exertion with high levels of physical activity but now she has dyspnea exertion with minimal ambulation and even at rest.
She denies having any chest pain. She denies feeling dizzy or lightheaded. She denies having any nausea or diaphoresis. Patient denies any cough fevers or chills. She denies any prior history of congestive heart failure or CAD. She has no
recent stress test.
On arrival in the emergency department she was afebrile, blood pressure was 155/90 with a pulse of 70 and she was satting 90% on room air. Her chest x-ray was clear. She had a CT PE study which was negative for PE and shows no acute infiltrates
edema or effusion.
Troponin was elevated at 0.066 on the second draw. BNP is elevated at 1800. ECG is nonischemic. Labs with CBC�unremarkable, electrolytes are mostly normal except for a potassium of 3.2, BUN and creatinine were normal. LFTs were normal.
Assessment and plan
64-year-old female with past medical history significant for hypertension, hyperlipidemia, obesity who was recently status post gallbladder surgery presenting to the emergency department with progressive dyspnea on exertion, ECG is nonischemic but
troponin is rising from 0.022-0.066 and elevated BNP of 1800. Overall symptoms are concerning for crescendo angina now with likely NSTEMI and elevated filling pressures consistent with some cardiomyopathy. She has no overt signs of volume overload
or cardiogenic shock. She has been ruled out for PE.
Shortness of breath/chest pain -suspect dyspnea secondary to angina/NSTEMI
- Admit to telemetry, no chest pain at this time
- Start heparin
- Patient already loaded with aspirin, continue aspirin 81 daily
- Nitroglycerin as needed chest pain
- Troponin trending
- Echo as soon as available
- Cardiovascular panel in a.m.
- Hold thiazide for now. Likely will need to change atenolol to not have beta-blockade after cardiac investigation. Continue losartan
DVT prophylaxis�on heparin drip
CODE STATUS�full code
[2025-05-28] VITALS (9 sets, daily range): BP systolic 100–149; BP diastolic 59–85; BMI 31.5
[2025-05-28] MEDS: HEPARIN 25000 UNITS/250 ML IV ×2 (00:21→19:45)
[2025-05-28 00:44] LABS: APTT 29.1 Sec (23.4-35.0)
[2025-05-28] MEDS: KCL 40 MEQ PO (01:16)
--- NOTE | 2025-05-28 02:08 | PTCARENOTE ---
Pt admitted to room 2250 for SOB. NSR on monitor VSS. Pt on Heparin gtt per order. Pt denies any pain, mild DESAI. Pt oriented to the room, ambulates independently. Call holt within reach
[2025-05-28 03:44] LABS: Hematocrit 37.6 % (37.0-47.0); Hemoglobin 12.9 g/dL (12.0-16.0); Mean Corp Hgb Conc. 34.3 g/dL (33.0-37.0); Mean Corpuscular Volume 88.5 fL (81.0-99.0); Platelet Count 311 10^3/uL (130-400); Red Cell Dist. Width 12.9 % (11.5-14.5)
[2025-05-28 04:07] LABS: Blood Urea Nitrogen 12 mg/dl (7-17); Calcium 9.4 mg/dl (8.4-10.2); Carbon Dioxide 26 mmol/L (22-30); Chloride 106 mmol/L (98-107); Estimated Creatinine Clearance 58 ml/min; Glucose 95 mg/dl (70-99); HDL Cholesterol 48 mg/dl; LDL Cholesterol, Calculated 114 mg/dl; Magnesium 1.7 mg/dl (1.6-2.3); Sodium 138 mmol/L (135-145); Very Low Density Lipoprotein 30 mg/dl (0-30); eGFR > 60.00
[2025-05-28 04:12] LABS: Potassium 3.5 mmol/L (3.5-5.1)
[2025-05-28 04:20] LABS: Troponin I 0.118 ng/ml
[2025-05-28 06:53] LABS: APTT 64.5 Sec (23.4-35.0)
[2025-05-28 08:54] LABS: Glycohemoglobin (HgbA1c) 5.1 % (4.0-5.6)
--- NOTE | 2025-05-28 08:57 | CON.CAR ---
Addendum entered and electronically signed by Carla Nguyen MD 05/28/25 12:16:
I saw and evaluated the patient, and I provided the substantive portion of the medical decision making.
I reviewed and agree with the note by Mary Faustin and it accurately reflects our care.
I personally performed the medical decision making of the this encounter and my assessment and plan is below:
64-year-old female with a past medical history of hypertension, hyperlipidemia, CKD [address] Li, obesity and migraines who presents for evaluation of dyspnea. Of note patient had a cholecystectomy on 05/17/2025. However, she thought
she was recovering well until the last 5 days began to feel short of breath with activity. It was not a lot of activity and felt out of proportion to the activity. Yesterday, she then began to feel short of breath without any activity. She denies
any chest pain or pressure. She denies any weight gain and in fact has been losing weight since going home. She denies orthopnea or PND.She denies any blood in the urine or stool. On exam she has a regular rate and rhythm with normal S1-S2 no
murmurs gallops or appreciated lungs were clear to auscultation bilateral without wheezes rhonchi abdomen soft nontender nondistended. Up no evidence of JVP. Labs are concerning for proBNP of 04/04/1932, troponins have trended up from 0.066-0.118
and 0.122. EKG showed sinus rhythm with LVH and nonspecific ST wave changes but this was not new. Chest x-ray did not show any signs of pulmonary edema on my review of the images. . CT PE without any sign of pulmonary embolism.
Assessment:
Concern for acute coronary syndrome as no clear other etiology for acute shortness of breath at rest. She does not appear volume overloaded on exam. Agree with IV heparin and aspirin. Agree with telemetry minute monitoring. Troponins are
slightly abnormal and trending up. Will finish the trend. Discussed with her the need to further evaluate with right and left heart catheterization. Will plan for Friday unless this becomes urgent. N.p.o. after midnight on Friday. She will be
added to the catheterization schedule. She is already on a statin will add a lipid panel
Hypertension: Continue multidrug regimen and titrate as needed.
Hyperlipidemia continue statin intensify if needed. He was already on atorvastatin 40.
Thank you for allow me to precipitate in her care. Will follow.
Original Note:
Consultation
Consultation Request
Date/Time Consultation Requested: 05/28/25 12:45a
Date/Time Consultation Performed: 05/28/25 8:45a
Requesting Provider: Klaudia Titus PA-C
Performing Provider: BALBINA Delgado for Dr. Nguyen
Reason for Consultation: SOB, abnormal troponin
Medical History
-
Chief Complaint: sob
History of Present Illness:
Mrs. Pearson is a 64 yo female with HTN, HLD, CKD3a (followed by Dr. Li), migraines, obesity and GERD, who presents to the ER with c/o SOB for 5 days. SOB is worse with exertion and last night SOB occurred at rest. She is s/p laparoscopic
cholecystectomy on 05/17/35 at [facility]. EKG in ER SR LVH with ST and T wave abnormality lateral. CXR and chest CT are unremarkable, troponin trend 0.029, 0.066, 0.118. proBNP 1830. She is feeling better currently w/o SOB in bed.
Previously seen by Dr. Quiñones in 2021 for cardiac clearance prior to knee surgery, also has been seen by Dr. Nguyen while inpatient [facility] 08/2022.
Past Medical History
Past Medical History: Other (as above)
Social History
Tobacco: Non-Smoker
Alcohol: None
Living: Alone
Employment: Employed (registrar in ER at )
Family History
Family History: Reviewed & Not Pertinent
Allergies / Home Medications
Allergy/AdvReac Type Severity Reaction Status Date / Time
amlodipine Allergy Leg Verified 05/17/25 10:53
Swelling
�Medication �Instructions �Recorded �Confirmed �Type
atenolol 50 mg tablet 50 mg PO BID Blood pressure 03/14/17 05/28/25 History
sumatriptan succinate 50 mg tablet 50 mg PO DAILYPRN PRN migraine 09/06/18 05/28/25 History
omeprazole 20 mg tablet,delayed 20 mg PO DAILY Gastrointestinal 12/13/20 05/28/25 History
release issue
lorazepam 0.5 mg tablet 0.5 mg PO BID anxiety 09/08/22 05/28/25 History
cyanocobalamin (vitamin B-12) 1,000 mcg PO DAILY 30 days #30 tabs 08/26/24 05/28/25 Rx
1,000 mcg tablet
hydrochlorothiazide 12.5 mg tablet 12.5 mg PO DAILY Fluid 01/23/25 05/28/25 History
Retention/Swelling
losartan 50 mg tablet 50 mg PO DAILY Blood Pressure 01/23/25 05/28/25 History
Medical Marijuana 1 dose inhalation PRN PRN Anxiety 05/11/25 05/28/25 History
Slow Fe 1 tab PO Q72H 05/11/25 05/27/25 History
atorvastatin 40 mg tablet 40 mg PO HS 05/11/25 05/28/25 History
loratadine 10 mg tablet (Claritin) 10 mg PO DAILY PRN Rhinitis 05/11/25 05/27/25 History
losartan 25 mg tablet 25 mg PO HS 05/11/25 05/28/25 History
acetaminophen 325 mg tablet 650 mg (2 x 325 mg) PO Q6HPRN PRN 05/17/25 05/27/25 Rx
mild pain #14 tabs
ibuprofen 600 mg tablet 600 mg PO Q6H PRN pain #14 tabs 05/17/25 05/27/25 Rx
Review of Systems
-
History Source: Patient
All other systems: Negative unless noted
Physical Exam
Vital Signs
Temp Pulse Resp BP Pulse Ox
97.8 F 75 18 100/59 98
05/28/25 08:01 05/28/25 07:30 05/28/25 08:01 05/28/25 03:19 05/28/25 08:01
Lab Results
05/28/25 03:28
05/28/25 03:28
Troponin I 0.118 ng/ml H* D 05/28/25 03:28
Gwh-E-Wpqpipvfrqn Pept 1830 pg/ml 05/27/25 18:30
Physical Exam
General: Well Developed, Well Nourished and No Apparent Distress
HEENT: Normocephalic and Anicteric
Respiratory: Clear
Cardiac: S1/S2 and Regular Rhythm
Breast: Deferred by me
GI: Soft, Non Distended and Normal Bowel Sounds
Rectal: Deferred by Provider
Genito-urinary: Clear Urine
Musculoskeletal: No Clubbing, No Cyanosis and No Edema
Skin: Warm and Dry
Neuro: AO x 3
Hematologic/Lymphatic: No Lymphadenopathy
Psych: Calm
Impression / Plan
-
SOB - worsened with exertion over the last 5 days.
- CXR and chest CT unremarkable.
- denies SOB at rest.
- plan for R/LHC Friday.
Elevated troponin - troponin trend 0.029, 0.066, 0.118, trend to peak.
- denies chest pain.
- EKG with LVH and ST/T wave abnormality, similar to prior.
- IV Heparin.
- will plan for right and left heart cath on Friday05/30/25.
HTN - stable on meds, continue.
HLD - stable on Lipitor, continue.
Data Reviewed
-
Radiology: Report Reviewed by me (NAD)
CT Scan: Report Reviewed by me (chest CT: NAD, no PE)
Medical Tests (Nuc Med, Echo etc): Report Reviewed by me (echo 08/2022 EF 65-70%, mild cLVH, aortic sclerosis w/o stenosis.) and Other (lexiscan 04/2022 negative for ischemia, normal perfusion, no defects.)
Labs: Labs Reviewed by me
Old Records: Reviewed
[2025-05-28] MEDS: ATIVAN 0.5 MG PO ×2 (09:04→19:45)
[2025-05-28] MEDS: ASPIR LOW (ENTERIC COATED) 81 MG PO (09:04)
[2025-05-28] MEDS: PROTONIX 40 MG PO (09:05)
[2025-05-28] MEDS: COZAAR 50 MG PO (09:08)
[2025-05-28] MEDS: TENORMIN PO (09:09)
--- NOTE | 2025-05-28 09:55 | PTCARENOTE ---
assumed care at 0700. Patient comfortable, slightly anxious. Denies shortness of breath, lungs CTA. NSR on telemetry. Heparin gtt infusing per MAR, call holt in reach
[2025-05-28 11:32] LABS: APTT 65.5 Sec (23.4-35.0)
[2025-05-28 11:49] LABS: Troponin I 0.122 ng/ml
--- NOTE | 2025-05-28 15:59 | W.PN.HOSP.TC ---
Today's Communication/Plan
-
ASA, Hep ggt
trend trop until peak
R/LHC tentatively Friday
Assessment / Plan
Assessment / Plan
General: Well Developed, Well Nourished and No Apparent Distress
HEENT: Normocephalic and Anicteric
Respiratory: Clear
Cardiac: S1/S2 and Regular Rhythm
Breast: Deferred by me
GI: Soft, Non Distended and Normal Bowel Sounds
Rectal: Deferred by Provider
Genito-urinary: Clear Urine
Musculoskeletal: No Clubbing, No Cyanosis and No Edema
Skin: Warm and Dry
Neuro: AO x 3
Hematologic/Lymphatic: No Lymphadenopathy
Psych: Calm
Shortness of Breath with Elevated Troponin, clinical concern for NSTEMI
-Consult Cardiology
-Patient given aspirin load in ED - Continue Aspirin 81mg Daily
-heparin drip
-Check Echocardiogram
-R/LHC Friday
-Trend Trop until peak
-CTA negative for PE
Hypokalemia
-monitor and replete ]
-Hold HCTZ
-monitor
Essential Hypertension
-Continue atenolol and losartan
-HCTZ on hold as above
Hyperlipidemia
-Continue atorvastatin
CKD Stage IIIA
-Creatinine at baseline
-Follows with Dr. Li as outpatient
Anxiety
-Continue lorazepam
GERD
-Continue Protonix
DVT proph: Heparin Drip
Code Status: Full Code
Anticipated Discharge: > 48 hours
Subjective/Interval History
-
Date of Service: May 28, 2025
no acute events overnight
Objective Data
-
Labs:
Laboratory Results
05/28/25 05/28/25 05/28/25
03:28 06:31 11:09
APTT 64.5 H 65.5 H
Sodium 138
Potassium 3.5
Chloride 106
Carbon Dioxide 26
BUN 12
Creatinine 1.0
Glucose 95
Calcium 9.4
05/28/25
18:10
APTT Pending
Sodium
Potassium
Chloride
Carbon Dioxide
BUN
Creatinine
Glucose
Calcium
Vital Signs:
Vital Signs
Temp Pulse Resp BP Pulse Ox
97.8 F 76 16 113/67 95
05/28/25 12:39 05/28/25 12:45 05/28/25 13:15 05/28/25 12:26 05/28/25 13:15
I&O
05/27/25 05/28/25 05/29/25
06:59 06:59 06:59
Intake Total 250 / 250 480 / 480
Balance 250 / 250 480 / 480
Data Reviewed
-
CT Scan: Report Reviewed by me
Labs: Labs Reviewed by me
[2025-05-28 18:29] LABS: APTT 90.5 Sec (23.4-35.0)
[2025-05-28 19:13] LABS: Troponin I 0.114 ng/ml
[2025-05-28] MEDS: TENORMIN 50 MG PO (19:45)
--- NOTE | 2025-05-28 21:43 | PTCARENOTE ---
Received patient at change of shift. SR on the monitor, HR in the 70s. Heparin running as per protocol, see documentation. Stool hemetested per order, negative. No complaints from pt at this time, call holt within reach.
[2025-05-28] MEDS: COZAAR 25 MG PO (22:14)
[2025-05-28] MEDS: LIPITOR 80 MG PO (22:14)
[2025-05-29 00:26] LABS: APTT > 200 Sec (23.4-35.0)
[2025-05-29 03:21] VITALS: BP 114/60
[2025-05-29 07:57] VITALS: BP 132/96
[2025-05-29] MEDS: COZAAR 50 MG PO (08:15)
[2025-05-29] MEDS: PROTONIX 40 MG PO (08:15)
[2025-05-29] MEDS: ASPIR LOW (ENTERIC COATED) 81 MG PO (08:15)
[2025-05-29] MEDS: ATIVAN 0.5 MG PO ×2 (08:17→19:26)
[2025-05-29] MEDS: TENORMIN 50 MG PO ×2 (08:18→19:26)
--- NOTE | 2025-05-29 08:28 | PTCARENOTE ---
received patient this am sitting on side of bed ordering breakfast. monitor shows NSR, VSS. IN heparin @ 1000units/hr via left ant. discussed cath procedure tomorrow, patient aware that she will be NPO after MN.
--- NOTE | 2025-05-29 08:57 | W.PN.CD ---
Today's Communication / Plan
-
npo p mn
continue iv hep gtt with intensive monitoring
Impression / Plan
-
acute coronary syndrome:
-suspect sob to be anginal equivalent.
-no clear other etiology for acute shortness of breath at rest. She does not appear volume overloaded on exam.
-Continue IV heparin and aspirin.
-Troponins pk 0.188
-need to further evaluate with right and left heart catheterization. Will plan for Friday unless this becomes urgent. N.p.o. after midnight on Friday.
-Intensify statin
-continue bb, asa
Hypertension: Continue multidrug regimen and titrate as needed.
Hyperlipidemia intensified statin as LDL 114.
-incrase to atorvastatin 80 mg daily i
Physical Exam
Vital Signs/Labs
Vital Signs
Temp Pulse Resp BP Pulse Ox
97.5 F 68 20 132/96 98
05/29/25 07:57 05/29/25 08:18 05/29/25 07:57 05/29/25 08:18 05/29/25 07:57
05/28/25 05/29/25 05/30/25
06:59 06:59 06:59
Actual Weight 183 lb 10.321 oz
APTT > 200 Sec (23.4-35.0) H* 05/28/25 23:51
Magnesium 1.7 mg/dl (1.6-2.3) 05/28/25 03:28
Triglycerides 152 mg/dl (10-149) H 05/28/25 03:28
LDL Cholesterol, Calc 114 mg/dl 05/28/25 03:28
VLDL Cholesterol, Calc 30 mg/dl (0-30) 05/28/25 03:28
HDL Cholesterol 48 mg/dl 05/28/25 03:28
05/27/25
18:30
Tza-G-Svxcvcfryxb Pept 1830
LAB Results
05/27/25 05/27/25 05/28/25
18:30 21:38 03:28
Troponin I 0.029 0.066 H* D 0.118 H* D
05/28/25 05/28/25 05/28/25
11:09 18:06 18:38
Troponin I 0.122 H* Cancelled 0.114 H*
Physical Exam
Constitutional: No acute distress
Cardiovascular: Rhythm & rate is regular, Pedal edema is absent, JVD pressure is normal and Systolic murmur absent
Respiratory: Respiratory effort normal, Lungs clear to auscul., Wheeze Absent, Crackles Absent and Rhonchi Absent
Neuro/Psych: AO x 3
Data Reviewed
-
Date of Service: May 29, 2025
Medical Decision Making: Review of Case with other Provider (Dr King proceed to cath tomorrow)
[2025-05-29 09:08] LABS: Hematocrit 38.0 % (37.0-47.0); Hemoglobin 12.9 g/dL (12.0-16.0); Mean Corp Hgb Conc. 33.9 g/dL (33.0-37.0); Mean Corpuscular Volume 89.6 fL (81.0-99.0); Platelet Count 337 10^3/uL (130-400); Red Cell Dist. Width 13.1 % (11.5-14.5)
[2025-05-29 09:18] LABS: APTT 90.2 Sec (23.4-35.0)
[2025-05-29 09:49] LABS: Blood Urea Nitrogen 13 mg/dl (7-17); Calcium 9.8 mg/dl (8.4-10.2); Carbon Dioxide 26 mmol/L (22-30); Chloride 107 mmol/L (98-107); Estimated Creatinine Clearance 58 ml/min; Glucose 97 mg/dl (70-99); Potassium 4.0 mmol/L (3.5-5.1); Sodium 139 mmol/L (135-145); eGFR > 60.00
[2025-05-29 11:42] VITALS: BP 121/73
--- NOTE | 2025-05-29 14:00 | W.PN.HOSP.TC ---
Today's Communication/Plan
-
R/LHC tomorrow
npo at mn
Assessment / Plan
Assessment / Plan
General: Well Developed, Well Nourished and No Apparent Distress
HEENT: Normocephalic and Anicteric
Respiratory: Clear
Cardiac: S1/S2 and Regular Rhythm
Breast: Deferred by me
GI: Soft, Non Distended and Normal Bowel Sounds
Rectal: Deferred by Provider
Genito-urinary: Clear Urine
Musculoskeletal: No Clubbing, No Cyanosis and No Edema
Skin: Warm and Dry
Neuro: AO x 3
Hematologic/Lymphatic: No Lymphadenopathy
Psych: Calm
Shortness of Breath with Elevated Troponin, clinical concern for NSTEMI
-Consult Cardiology
-Patient given aspirin load in ED - Continue Aspirin 81mg Daily
-heparin drip
-Check Echocardiogram
-R/LHC Friday
-Trended Trop until peak
-CTA negative for PE
#Bilateral pulmonary nodules
-f/u outpatient
Hypokalemia
-monitor and replete ]
-Hold HCTZ
-monitor
Essential Hypertension
-Continue atenolol and losartan
-HCTZ on hold as above
Hyperlipidemia
-Continue atorvastatin
CKD Stage IIIA
-Creatinine at baseline
-Follows with Dr. Li as outpatient
Anxiety
-Continue lorazepam
GERD
-Continue Protonix
DVT proph: Heparin Drip
Code Status: Full Code
Anticipated Discharge: 24 - 48 hours
Subjective/Interval History
-
Date of Service: May 29, 2025
No acute events overnight
Objective Data
-
Labs:
Laboratory Results
05/29/25 05/29/25
08:44 16:00
WBC 8.6
Hgb 12.9
Hct 38.0
Plt Count 337
APTT 90.2 H Pending
Sodium 139
Potassium 4.0
Chloride 107
Carbon Dioxide 26
BUN 13
Creatinine 1.0
Glucose 97
Calcium 9.8
Vital Signs:
Vital Signs
Temp Pulse Resp BP Pulse Ox
97.9 F 72 20 132/96 98
05/29/25 11:43 05/29/25 10:45 05/29/25 11:43 05/29/25 08:18 05/29/25 11:43
I&O
05/28/25 05/29/25 05/30/25
06:59 06:59 06:59
Intake Total 250 / 250 480 / 480
Output Total 300 / 300
Balance 250 / 250 180 / 180
Review of Systems
-
History Source: Patient
All other systems: Reviewed and negative
Data Reviewed
-
CT Scan: Report Reviewed by me
Labs: Labs Reviewed by me
[2025-05-29 15:18] VITALS: BP 92/49
[2025-05-29 16:42] LABS: APTT 85.9 Sec (23.4-35.0)
[2025-05-29 19:20] VITALS: BP 129/67
[2025-05-29] MEDS: HEPARIN 25000 UNITS/250 ML IV (19:26)
[2025-05-29 22:31] VITALS: BP 122/74
[2025-05-29] MEDS: LIPITOR 80 MG PO (22:32)
[2025-05-29] MEDS: COZAAR 25 MG PO (22:32)
--- NOTE | 2025-05-29 22:43 | PTCARENOTE ---
Received patient at change of shift. SR on the monitor, HR in the 60s. Heparin running as per protocol, see documentation. NPO at midnight. Pt ambulating in the hallway. No complaints from pt at this time, call holt within reach.
[2025-05-30] VITALS (13 sets, daily range): BP systolic 89–134; BP diastolic 51–72; BMI 31.6
[2025-05-30 04:31] LABS: APTT 77.6 Sec (23.4-35.0)
[2025-05-30 04:34] LABS: ALT (SGPT) 17 U/L (0-35); AST (SGOT) 27 U/L (14-36); Albumin 3.7 g/dl (3.5-5.0); Alkaline Phosphatase 125 U/L (38-126); Blood Urea Nitrogen 17 mg/dl (7-17); Calcium 9.5 mg/dl (8.4-10.2); Carbon Dioxide 22 mmol/L (22-30); Chloride 110 mmol/L (98-107); Estimated Creatinine Clearance 53 ml/min; Glucose 89 mg/dl (70-99); Potassium 3.9 mmol/L (3.5-5.1); Sodium 139 mmol/L (135-145); Total Protein 6.4 g/dl (6.3-8.2); eGFR 55.42
[2025-05-30] MEDS: TENORMIN PO (08:00)
[2025-05-30] MEDS: PROTONIX 40 MG PO (08:26)
[2025-05-30] MEDS: COZAAR 50 MG PO (08:26)
[2025-05-30] MEDS: ASPIR LOW (ENTERIC COATED) 81 MG PO (08:26)
[2025-05-30] MEDS: ATIVAN 0.5 MG PO (08:26)
--- NOTE | 2025-05-30 09:05 | W.PN.CD ---
Addendum entered and electronically signed by Kenny Oates DO 05/30/25 11:53:
Clarification: Endothelial dysfunction is a type 2 ND, not ACS/NSTEMI.
Addendum entered and electronically signed by Kenny Oates DO 05/30/25 10:56:
Cardiac catheterization shows normal filling pressures, normal cardiac function and nonocclusive atherosclerotic coronary artery disease. There appears to be endothelial dysfunction of the mid and distal LAD, responsive to intracoronary
nitroglycerin. Typically, this is managed with calcium channel blockers, though the patient has an allergy to amlodipine listed (lower extremity edema), a known side effect of the medication. That being said, we will start isosorbide mononitrate
30 mg daily and maintain her higher dose of atorvastatin. Her new LDL goal is <55.
Original Note:
Today's Communication / Plan
-
RHC/C today to clarify coronary anatomy, filling pressures.
Impression / Plan
-
Impression/Plan: 64 y/o female with HTN, HLD, CKD3a and obesity, recently s/p cholecystectomy (05/17/2025) admitted with DESAI progressing to shortness of breath at rest and and abnormal troponin, concerning for ACS.
#Acute coronary syndrome:
-Suspect sob to be anginal equivalent.
-EKG shows dynamic ST changes in the lateral leads.
-She does not appear volume overloaded on exam.
-Troponins peaked at 0.122.
-Continue aspirin, heparin, atorvastatin, atenolol.
-RHC/LHC today.
#Hypertension
-Chronic, stable.
-Continue atenolol, losartan.
#Hyperlipidemia
-Chronic, stable.
-Total cholesterol = 192, LDL = 114, HDL = 48, Triglycerides = 152.
-Continue intensified statin (increased to 80 mg daily).
#CKD3a
-Chronic.
-Baseline creatinine ~ 1.1.
-Adjust medications accordingly.
Subjective/Interval History:
No acute events.
Patient not SOB while laying in bed.
CTPE negative for PE on 05/27/2025.
DATA:
CT Chest, 05/27/2025:
IMPRESSION:
No acute disease of the chest. No evidence of pulmonary embolus.
Bilateral pulmonary nodules as described above. [facility] Pulmonary Nodule Advisory Board will be automatically informed of the findings.
If the patient has emphysema, patient should be assessed for an annual low dose lung cancer CT program, as pulmonary emphysema is an independent risk factor for lung cancer.
Physical Exam
Vital Signs/Labs
Vital Signs
Temp Pulse Resp BP Pulse Ox
36.4 C 66 18 128/69 98
05/30/25 07:16 05/30/25 08:26 05/30/25 07:16 05/30/25 08:26 05/30/25 07:16
05/28/25 05/29/25 05/30/25
11:59 11:59 11:59
Actual Weight 83.3 kg 83.5 kg
05/29/25 08:44
05/30/25 04:07
APTT 77.6 Sec (23.4-35.0) H 05/30/25 04:07
Magnesium 1.7 mg/dl (1.6-2.3) 05/28/25 03:28
Triglycerides 152 mg/dl (10-149) H 05/28/25 03:28
LDL Cholesterol, Calc 114 mg/dl 05/28/25 03:28
VLDL Cholesterol, Calc 30 mg/dl (0-30) 05/28/25 03:28
HDL Cholesterol 48 mg/dl 05/28/25 03:28
05/27/25
18:30
Vvw-D-Lbotjbmsrfa Pept 1830
LAB Results
05/27/25 05/27/25 05/28/25
18:30 21:38 03:28
Troponin I 0.029 0.066 H* D 0.118 H* D
05/28/25 05/28/25 05/28/25
11:09 18:06 18:38
Troponin I 0.122 H* Cancelled 0.114 H*
Physical Exam
Constitutional: No acute distress and Comfortable
EENT: Anicteric and Moist mucous membranes
Cardiovascular: Rhythm & rate is regular, Pedal edema is absent, JVD pressure is normal, S1S2 is normal and Murmur/rub/gallop absent
Respiratory: Respiratory effort normal, Lungs clear to auscul., Wheeze Absent, Crackles Absent and Rhonchi Absent
GI: Soft, Distention absent, Flat, Non tender and Normal bowel sounds
Neuro/Psych: AO x 3
Data Reviewed
-
Date of Service: May 30, 2025
Medical Decision Making: Reviewed Test Results, Independent Historian Assessment and Test Interpretation
EKG: Tracing Personally Visualized and interpreted and Report Reviewed by me
Echo: Ordered by me
X-Ray/CT/US/MRI/NUC/PET: Image Personally Visualized and interpreted and Report Reviewed by me
Medical Tests (PFT, Pathology etc): Image Personally Visualized and interpreted and Report Reviewed by me
Labs: Labs Reviewed by me
--- NOTE | 2025-05-30 09:13 | PTCARENOTE ---
Assumed care of the pt @ 0700. Pt is AAOx3 SR/SB on the monitor denies cp. Morning bp 103/56 repeat 128/69 Losartan was given and Atenolol held at this time. Heparin gtt was 1000 units/HR. Pt was escorted to Project Control Officer @ 0912.
--- NOTE | 2025-05-30 09:41 | W.PN.HOSP.TC ---
Today's Communication/Plan
-
R/LHC today
Possible discharge pending echo results, cardiology rec
Assessment / Plan
Assessment / Plan
64F with HTN, CKD, P/W SOB, found to have NSTEMI
Type II ND
SOB, positive troponin, peaked at 0.122, EKG is NSR, LVH with nonspecific ST changes. Initial EKG with sinus tachycardia.
CTA negative for PE
Echo ordered and pending. Possible discharge pending results and cardiology clearance.
Telemetry monitoring
Cardiology consulted, patient s/p [employer] now for R/LHC via right wrist. Per report 'fairly rapid tapering of the mid and distal LAD. This raised suspicion for endothelial dysfunction, particular given the patient's history of hypertension as well
as migraine headaches. Nitroglycerin 150 mcg was given intracoronary. Angiography was repeated showing improvement in the mid and distal LAD vessel diameter.'
Continue Aspirin 81mg Daily
Imdur 30mg daily
Bilateral pulmonary nodules
-f/u outpatient
Hypokalemia
-Resolved with repletion
-monitor
Essential Hypertension
-Continue atenolol and losartan. Held this morning due to low BP and impending procedure
-HCTZ on hold until needed
Hyperlipidemia
-Continue atorvastatin
CKD Stage IIIA
-Creatinine at baseline
-Follows with Dr. Li as outpatient
Anxiety
-Continue lorazepam
GERD
-Continue Protonix
DVT proph: Heparin Drip
Code Status: Full Code
Anticipated Discharge: Within 24 hours
Subjective/Interval History
-
Date of Service: May 30, 2025
Patient was seen after her cath, she reported improvement in her shortness of breath, no chest pain
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
Objective Data
-
Labs:
Laboratory Results
05/30/25
04:07
APTT 77.6 H
Sodium 139
Potassium 3.9
Chloride 110 H
Carbon Dioxide 22
BUN 17
Creatinine 1.1 H
Glucose 89
Calcium 9.5
Total Bilirubin 0.7
AST 27
ALT 17
Alkaline Phosphatase 125
Vital Signs:
Vital Signs
Temp Pulse Resp BP Pulse Ox
97.6 F 66 18 128/69 98
05/30/25 07:16 05/30/25 08:26 05/30/25 07:16 05/30/25 08:26 05/30/25 07:16
I&O
05/29/25 05/30/25 05/31/25
06:59 06:59 06:59
Intake Total 480 / 480
Output Total 300 / 300
Balance 180 / 180
Review of Systems
-
History Source: Patient
All other systems: Reviewed and negative
Physical Exam
-
General: No Apparent Distress
HEENT: Moist Mucous Membranes, Anicteric and PERRLA
Respiratory: Clear to Auscultation; Negative Wheezes, Rales or Rhonchi
Cardiac: Regular Rhythm and S1/S2; Negative Murmur, Rub or Gallop
GI: Soft, Nontender, Nondistended and Normal Bowel Sounds
Musculoskeletal: No Edema
Skin: Warm and Dry; Negative Rash, Ulcers or Lesions
Neuro: Awake and AO x 3
Hematologic / Lymphatic: No Lymphadenopathy
Psych: Calm
Data Reviewed
-
CT Scan: Report Reviewed by me (There is a solid noncalcified pulmonary nodule in the lateral right upper lobe on image #39 measuring 2 mm. There is a similar finding on image #33 and image #19. There is a solid noncalcified pulmonary nodule in the
posterior lateral left upper lobe on image #18 measuring 5 mm.)
Labs: Labs Reviewed by me
--- NOTE | 2025-05-30 10:36 | ITS.CL.CATH ---
[employer] - Catheterization
Cardiac Catheterization
Procedure Report:
CARDIAC CATHETERIZATION REPORT
Date of Procedure: 05/30/2025
Referring: Shannon Nguyen M.D.
Indication: Persistent shortness of breath, elevated troponin.
PROCEDURE:
1. Right heart catheterization.
2. Coronary angiography.
3. Left heart catheterization.
4. Left ventriculography.
5. Intracoronary nitroglycerin.
A total of 22 minutes of procedural/moderate sedation was utilized. An independent biomedical equipment tech was present to assist with and help manage the patient's level of consciousness and physiologic status.
ACCESS:
1. 6 [place] right radial artery using a modified Seldinger technique under ultrasound guidance.
2. 5 [place] right antecubital vein using a previously placed IV.
CATHETERS:
1. 5 [place] balloon wedge.
2. 5 [place] JR4.
3. 5 [place] JL 3.5.
4. 5 [place] angled pigtail.
HEMODYNAMIC DATA
Weight (kg): 83.5
AO (s/d/x, mmHg): 113/65/87
LV (s/x, mmHg): 115/12
PCWP (a/v/x, mmHg): /
PA (s/d/x, mmHg): 34/19/24
RV (s/x, mmHg): 34/11
RA (a/v/x, mmHg): 31/07/11
SVC SvO2 (%): 74.8
IVC SvO2 (%): Not obtained.
RA SvO2 (%): Not obtained.
RV SvO2 (%): Not obtained.
PA SvO2 (%): 73.6
SaO2 (%): 95.2
Hbg (g/dL): 11.6
LOC
CO (L/min): 5.46
CI (L/min/m2): 2.89
Thermodilution
CO (L/min): Not performed.
CI (L/min/m2): Not performed.
TPG (mmHg): 12
PVR (Mcaiel Units): 2.20
SVR (dynes*seconds*cm^-5): 1114
AVO2 Diff (Volume %): 3.41
Cardiac Power Output (meade): 1.05 (MAP * CO)/451 (normal 0.5 - 0.7; 0.4 - 0.6 in the elderly)
Cardiac Power Index (meade/m2): 0.42 (MAP * CI)/451
Juhi: 1.36 (PAs-PAd)/RA
AV gradient (x, mmHg): None.
AV area (cm2): Normal.
MV gradient (x, mmHg): None.
MV area (cm2): Normal.
LEFT VENTRICULOGRAPHY: Performed in an MILLARD projection. Normal left ventricular size and systolic function without regional wall motion abnormality. Left ventricular ejection fraction estimated at 70+ percent. There is no significant mitral
valve regurgitation. There is no aortic valve insufficiency. The aortic root, ascending aorta, visualized arch and descending thoracic aorta appear normal.
AORTOGRAPHY: Not performed.
CORONARY ANGIOGRAPHY
Dominance: Right.
Left Main: Normal size, bifurcating vessel. There is no coronary artery disease.
LAD: Normal size vessel giving rise to 3 diagonals. There is a 30%, densely calcified lesion in the proximal LAD spanning the origin of D1 and D2. The distal LAD tapers fairly rapidly.
Ramus: Congenitally absent.
Circumflex: Small size, nondominant vessel giving rise to 1 relatively small obtuse marginal supplying the basal lateral wall.
RCA: Large size, dominant vessel with a large posterolateral arcade which supplies the majority of the inferolateral wall. There is a 20% lesion in the mid RCA.
INTERVENTIONS
1. Intracoronary nitroglycerin 150 mcg.
Narrative:
After performing angiography, we noted that there was fairly rapid tapering of the mid and distal LAD. This raised suspicion for endothelial dysfunction, particular given the patient's history of hypertension as well as migraine headaches.
Nitroglycerin 150 mcg was given intracoronary. Angiography was repeated showing improvement in the mid and distal LAD vessel diameter.
Closure Device: Vascular band for the right radial artery, manual pressure for the right antecubital vein.
Radiation dose (mGy): 474
DAP (cm2.Gy): 25.5
Fluoroscopy time (minutes): 4.7
CONCLUSIONS:
1. Right dominant circulation with a 30% lesion in the proximal LAD spanning the origin of D1 and D2, a 20% lesion in the mid RCA and rapid tapering of the distal LAD which responds to intracoronary nitroglycerin suspicious for endothelial
dysfunction.
2. Normal left ventricular size with hyperdynamic systolic function (LVEF = 70+ percent).
3. Normal filling pressures (LVEDP = 12 mmHg, PCWP = 12 mmHg at 83.5 kg).
4. Normal cardiac function (cardiac index = 2.89 L/min/m�, cardiac power output = 1.05 W, Juhi = 1.36).
RECOMMENDATIONS:
1. Expectant management after cardiac catheterization via right radial/antecubital approach.
2. Limited weight bearing on the right wrist for one week.
3. Treatment for suspicion of underlying endothelial dysfunction. We will focus primarily on calcium channel blockers, possibly long-acting nitrates if indicated.
4. Aggressive primary prevention with high-dose, high potency statin. Goal LDL <55.
5. Echocardiogram ordered and pending.
Copy to: Shannon Nguyen M.D., Juan Price D.O.
Kenny Oates, DO, FACC, FACP
--- NOTE | 2025-05-30 10:53 | PTCARENOTE ---
Pt returned to 2250 from CCL. Pt arrived AAOx3 SR on the monitor VSS. Rt TR band in place and rt brachial dressing c/d/i. No evidence of bleeding or hematoma.
--- NOTE | 2025-05-30 12:51 | CM ---
spoke to pt in room, she is prev indep, lives alone in an apt with 13 steps to enter. she denies any dc planning needs or dmes'. plan is for dc to home when medically stable.
[2025-05-30] MEDS: IMDUR (EXTENDED RELEASE) 30 MG PO (14:54)
--- NOTE | 2025-05-30 18:06 | PTCARENOTE ---
Pt was discharged to home. Pt was given discharge instructions including prescription sent to her [facility]. Pt verbalized understanding of instructions and follow up appointments. Pt was staff escorted to lobby son waiting in the car.
--- NOTE | 2025-06-01 18:11 | W.DCSUMMARY ---
Discharge Summary
Discharge Data
Date of Admission: 05/27/25
Date of Discharge: 06/01/25
Total time spent discharging patient (in min): 35
-
Pending Results: No
Hospital Course
Attending physician on day of discharge:
Isaura Joseph MD
Admission diagnosis:
Shortness of breath
Discharge diagnosis:
Type II NC
Secondary diagnoses:
Bilateral pulmonary nodules
Hypokalemia
Hypertension
Consultations:
Cardiology
Procedures:
Right/left heart catheterization
Hospital course:
64F with HTN, CKD, P/W SOB, found to have type II NC. Patient was found to have positive troponin, peaked at 0.122, EKG is NSR, LVH with nonspecific ST changes. Initial EKG with sinus tachycardia. CTA negative for PE.
Echo with normal EF and no RWMA. Cardiology consulted, patient s/p R/LHC via right wrist. Per report 'fairly rapid tapering of the mid and distal LAD. This raised suspicion for endothelial dysfunction, particular given the patient's history of
hypertension as well as migraine headaches. Nitroglycerin 150 mcg was given intracoronary. Angiography was repeated showing improvement in the mid and distal LAD vessel diameter.' With aspirin and Imdur, unable to give amlodipine due to allergy
(leg swelling). Symptoms resolved prior to discharge.
Physical exam on discharge:
Gen: NAD
HEENT: PERRLA, EOMI, MMM, neck supple
Cards: RRR, no M/G/R
Resp: Lungs CTAB, no W/R/R
GI: soft, NT/ND/NABS
MSK: No edema
Skin: warm and dry, no rash, ulcer or lesions
Heme: No LAD
Psych: Calm
Neuro: AAOx3
Diagnostic findings:
Echo: 1. Normal left ventricular size, and systolic function. Ejection fraction is 65-70%.
2. Aortic sclerosis without stenosis.
3. No significant change from 09/08/22.
Cath:
CONCLUSIONS:
1. Right dominant circulation with a 30% lesion in the proximal LAD spanning the origin of D1 and D2, a 20% lesion in the mid RCA and rapid tapering of the distal LAD which responds to intracoronary nitroglycerin suspicious for endothelial
dysfunction.
2. Normal left ventricular size with hyperdynamic systolic function (LVEF = 70+ percent).
3. Normal filling pressures (LVEDP = 12 mmHg, PCWP = 12 mmHg at 83.5 kg).
4. Normal cardiac function (cardiac index = 2.89 L/min/m�, cardiac power output = 1.05 W, Juhi = 1.36).
CT chest:
No acute disease of the chest. No evidence of pulmonary embolus.
Bilateral pulmonary nodules as described above.
Discharge disposition:
Home
Discharge Plan
-
Patient Disposition: Home (Routine Discharge)
Discharge Diagnosis/Procedures: cardiac catheterization
Diet: Regular
Activity: No restrictions
Stand Alone Forms: DC Instructions- Cath/EP Lab, Return to Work
Referrals:
Mary Faustin CRNP [Specified Professional Personl, Cardiology] - 06/14/25 11:20 am
Sebas Price DO [Family Provider]
Carla Nguyen MD [Active, Cardiology]
Prescriptions:
New
atorvastatin 80 mg Tablet
80 mg PO HS 30 Days Qty: 30 0RF
isosorbide mononitrate 30 mg Tablet Extended Release 24 Hr
30 mg PO DAILY 30 Days Qty: 30 0RF
aspirin 81 mg Tablet,Delayed Release (Dr/Ec)
81 mg PO DAILY 30 Days Qty: 30 0RF
Continued
atenolol 50 MG tablet
50 mg PO BID
sumatriptan succinate 50 MG tablet
50 mg PO DAILYPRN PRN (Reason: migraine)
omeprazole 20 MG tablet,delayed release (DR/EC)
20 mg PO DAILY
lorazepam 0.5 mg Tablet
0.5 mg PO BID
cyanocobalamin (vitamin B-12) 1,000 mcg Tablet
1,000 mcg PO DAILY 30 Days Qty: 30 0RF
losartan 50 mg Tablet
50 mg PO DAILY
losartan 25 mg Tablet
25 mg PO HS
loratadine [Claritin] 10 mg Tablet
10 mg PO DAILY PRN (Reason: Rhinitis)
Slow Fe
1 tab PO Q72H
Medical Marijuana
1 dose inhalation PRN PRN (Reason: Anxiety)
acetaminophen 325 mg tablet
650 mg PO Q6HPRN PRN (Reason: mild pain) Qty: 14 0RF
Discontinued
hydrochlorothiazide 12.5 mg Tablet
12.5 mg PO DAILY
atorvastatin 40 mg tablet
40 mg PO HS
ibuprofen 600 mg tablet
600 mg PO Q6H PRN (Reason: pain) Qty: 14 0RF
Discharge Orders:
Discharge Patient (As Directed); Ordered 05/30/25
Ordered By: Roger Tucker
Care Plan Goals
Care Plan Goals:
Problem: Readiness for enhanced knowledge related to diagnosis and treatment plan
Goal: Understand your diagnosis and treatment plan needs, including medications if applicable.
Instructions: Know your diagnosis, underlying causes and treatment plan options, including medications if applicable. Consult with your health care team to learn about your diagnosis and treatment plan, including medications if applicable.
Discharge Date and Time
Discharge Date/Time: 05/30/25 18:11
Print Language: UKRAINIAN
== END 2025-05-30 18:11 | disposition home or self-care (01) | DRG 282 ==
LOC: IVU 23:30
PROVIDERS: Internal Medicine; Physician Assistant; Physician Assistant Medical; ADMITTING PHYSICIAN Internal Medicine; ATTENDING PHYSICIAN Internal Medicine; CONSULT PHYSICIAN Internal Medicine Cardiovascular Disease; EMERGENCY PHYSICIAN Emergency Medicine; FAMILY PHYSICIAN Family Medicine
PROC: B2151ZZ Fluoroscopy of Left Heart using Low Osmolar Contrast (ICD-10-PCS; 2025-05-30)
PROC: B2111ZZ Fluoroscopy of Multiple Coronary Arteries using Low Osmolar Contrast (ICD-10-PCS; 2025-05-30)
PROC: 4A023N8 Measurement of Cardiac Sampling and Pressure, Bilateral, Percutaneous Approach (ICD-10-PCS; 2025-05-30)
DX: I25.85 Chronic coronary microvascular dysfunction (principal); I21.A1 Myocardial infarction type 2; N18.31 Chronic kidney disease, stage 3a; I12.9 Hypertensive chronic kidney disease with stage 1 through stage 4 chronic kidney disease, or unspecified chronic kidney disease; Z79.82 Long term (current) use of aspirin; E87.6 Hypokalemia; F41.9 Anxiety disorder, unspecified; K21.9 Gastro-esophageal reflux disease without esophagitis; I70.0 Atherosclerosis of aorta; Z79.899 Other long term (current) drug therapy; Z90.49 Acquired absence of other specified parts of digestive tract; Z96.651 Presence of right artificial knee joint
CPT/HCPCS: 71046; 71275; 80048; 80053; 80061; 83036; 83735; 83880; 84484; 85025; 85027; 85730; 93005; 93306; 93460; 96374; 99152; 99285; C1769; C1894; Q9967

== ENCOUNTER → 2025-06-26 22:28 | Outpatient (REF) | payer MEDICARE, SELFPAY ==
[2025-06-26 23:15] LABS: Blood Urea Nitrogen 19 mg/dl (7-17); Calcium 10.0 mg/dl (8.4-10.2); Carbon Dioxide 31 mmol/L (22-30); Chloride 102 mmol/L (98-107); Glucose 101 mg/dl (70-99); Potassium 3.8 mmol/L (3.5-5.1); Sodium 141 mmol/L (135-145); eGFR 49.92
== END ==
LOC: OLAB 22:28
PROVIDERS: ATTENDING PHYSICIAN Nurse Practitioner; FAMILY PHYSICIAN Family Medicine
DX: I10 Essential (primary) hypertension (principal)
CPT/HCPCS: 80048

== ENCOUNTER → 2025-08-09 08:38 | Outpatient (REF) | payer MEDICARE, SELFPAY ==
[2025-08-09 10:00] LABS: HDL Cholesterol 41 mg/dl; LDL Cholesterol, Calculated 78 mg/dl; Very Low Density Lipoprotein 43 mg/dl (0-30)
== END ==
LOC: OLAB 08:38
PROVIDERS: ATTENDING PHYSICIAN Nurse Practitioner; FAMILY PHYSICIAN Family Medicine
DX: E78.2 Mixed hyperlipidemia (principal)
CPT/HCPCS: 80061